=== PATIENT | female | born 1995 | race Caucasian/White ===

== ENCOUNTER → 2021-02-16 14:35 | Outpatient (CLI) | payer OTHER, SELFPAY ==
[2021-02-19 13:17] LABS: HPV Reflexed? NOT INDICATED
== END ==
PROVIDERS: Referring Provider Nurse Practitioner Women's Health; Visit Provider Nurse Practitioner Women's Health
DX: Z12.4 Encounter for screening for malignant neoplasm of cervix (principal)
CPT/HCPCS: 88175; G0145

== ENCOUNTER → 2022-11-02 | Outpatient (CLI) | payer OTHER, SELFPAY ==
--- NOTE | 2022-11-02 11:54 | RAD_ITS ---
INDICATION: infertility management EXAMINATION/TECHNIQUE: Routine hysterosalpingography was performed. Total Fluoroscopic Time: 9 seconds AND number of Fluoroscopic Images: 1 OR Radiation dosage index: 3.15 mGy COMPARISON: None. FINDINGS: The uterine cavity contour is unremarkable. There are no filling defects or abnormalities. Both fallopian tubes are patent with free peritoneal spillage bilaterally. RAD/Salpingogram IMPRESSION: Negative hysterosalpingogram. Electronically Signed: Henry Pyle MD at 12:59 EDT ,
--- NOTE | 2022-11-02 12:27 | PCM.OPRPT ---
Problems Associated Problem List Diagnoses (1) Infertility management: (2) Pelvic pain: (3) Dysmenorrhea: Report of Operation Date of Procedure: 11/02/22 Description of Surgical Findings:: Preop diagnosis: Infertility Postop diagnosis:Infertility , bilateral tubal patency Procedure: Hysterosalpingogram Surgeon:Ann Collier DO Implantable devices: None Complications: None Findings: Bilateral tubal patency and normal uterine cavity Operative details: Patient was taken to the x-ray room and was placed on the x-ray table and was in the dorsal lithotomy position. Speculum was placed in the vagina and the cervix prepped with Betadine and the HSG catheter was easily introduced into the uterus and speculum removed. Radiologist was brought in and while pushing radiopaque dye into the uterus via the HSG catheter the radiologist took multiple images and views and confirmed bilateral tubal patency seen. No gross uterine filling defects or abnormalities were seen. All instruments removed from the vagina and the uterus without complication. Patient tolerated the procedure well. Surgeon: Ann Collier therapeutic dietitian: None Multi Select Codes Urinary/Genital Urinary/Genital CPT Codes: 38013 HSG/SIS
== END | disposition home or self-care (01) ==
LOC: RAD 11:52
PROVIDERS: Referring Provider Obstetrics & Gynecology; Visit Provider Obstetrics & Gynecology
DX: Z31.9 Encounter for procreative management, unspecified (principal)
CPT/HCPCS: 58340; 74740; Q9967

== ENCOUNTER → 2023-08-10 | Outpatient (CLI) | payer MEDICAID, SELFPAY ==
--- OUTSIDE RECORDS SUMMARY | 2023-08-10 11:44 | XMS RPT_ITS | CCD ---
Author Name Unknown Address [address] [place] [address] Organization [facility] Care Team Providers Care Final Assembler Boat Name Role Phone COLÓNMEGHANA RAMIREZHEN Unavailable Unavailable VAN COLÓN Unavailable Unavailable IRA NICOLE Unavailable Unavailable Kristie DELI DEPARTMENT MANAGER.Cris BRYSON Primary Care Provider Kristie DELI DEPARTMENT MANAGER.Cris BRSYON Primary Care Provider Kristie DELI DEPARTMENT MANAGER.Cris BRYSON Primary Care Provider CRIS FLOWERS Primary Care Unavailable KRISTIE CRIS [place] Attending Unavailable KRISTIE CRIS [place] Attending Unavailable KRISTIE CRIS [place] Primary Care Unavailable KRISTIE CRIS [place] Attending Unavailable KRISTIE, CRIS L Primary Care Unavailable MARE JACOBSEN C.N.P. Attending Unavaila ble CRIS FLOWERS Attending Unavailable Unavailable Primary Care Provider UnavailBUFFY Israel Attending Unavailable CRIS FLOWERS Primary Care Unavailable BUFFY MATHEWS Attending Unavailable ROBER OLIVARES Attending Unavailable AVE ARAUJO Referring Unavailabl e Medications Current Medications Medication Drug Class(es) Dates Sig (Normalized) Sig (Original) enteric contrast (will be provided with radiology test) (2 sources) Start: 12-05-2022 End: 12-06-2022 enteric contrast (will be provided with radiology test) For CT ABD W IVCON order Administer, As Directed One Time Only, via Oral, Rectal, both Oral and Rectal, Enteric Tube, Stoma or Indwelling Catheter, Enteric Contrast as designated per enteric contrast guidelines 1 Each 0 12/05/2022 12/06/2022 Active Completed/Discontinued Medications Medication Drug Class(es) Dates Sig (Normalized) Sig (Original) [id number] 200 actuat albuterol 0.09 mg/actuat metered dose inhaler (7 sources) beta2-Adrenergic Agonist Start: 05-08-2020 End: 11-08-2021 take 2 puff(s) by inhalation every six hours as needed for wheezing albuterol HFA (PROVENTIL HFA, VENTOLIN HFA) 90 mcg/actuation inhaler Indications: Post-viral reactive airway disease Inhale 2 Puffs as instructed every 6 hours as needed for Wheezing/Shortness of Breath. 18 g 5 05/08/2020 11/08/2021 Discontinued (Other) Problems Active Problems Problem Classification Problem Date Documented Da te Episodic/Chronic Acute and chronic tonsillitis (1 source) Acute tonsillitis, unspecified; Translations: [Tonsillitis] Onset: 06-16-2023 Episodic Anxiety disorders (20 sources) Mixed anxiety and depressive disorder; Translations: [Anxiety disorder, unspecified] Onset: 01-13-2020 01-13-2020 Chronic Asthma (20 sources) Reactive airway disease; Translations: [Other asthma] Onset: 05-08-2020 05-08-2020 Chronic Endometriosis (2 sources) Endometriosis (clinical); Translations: [Endometriosis, unspecified] Onset: 12-26-2016 06-27-2023 Chronic Genitourinary symptoms and ill-defined conditions (1 source) Dysuria; Translations: [Dysuria] Episodic Menstrual disorders (1 source) Dysmenorrhea; Translations: [Dysmenorrhea, unspecified] Onset: 06-27-2023 06-27-2023 Chronic Mycoses (1 source) Candidiasis of vagina; Translations: [Vaginal yeast infection] Episodic Other connective tissue disease (1 source) Pain in right foot; Translations: [Pain in right foot] Episodic Other ear and sense organ disorders (1 source) Ear problem Onset: 07-16-2023 Episodic Other gastrointestinal disorders (1 source) Abdominal bloating; Translations: [Abdominal distension (gaseous)] Episodic Other non-traumatic joint disorders (1 source) Pain in unspecified joint; Translations: [Pain in joint, multiple sites] Onset: 07-10-2023 Episodic Other upper respiratory disease (1 source) Seasonal allergy; Translations: [Other seasonal allergic rhinitis] Chronic Otitis media and related conditions (3 sources) Dysfunction of right eustachian tube; Translations: [Unspecified Eustachian tube disorder, right ear] Onset: 06-16-2023 07-16-2023 Episodic Unclassified (1 source) Unknown / UNK(Unknown) Onset: 12-26-2016 Unclassified (20 sources) NEGATIVE MEDICAL HISTORY 06-27-2018 Unclassified (1 source) APPOINTMENT CANCELLED Past or Other Problems Problem Classification Problem Date Documented Da te Episodic/Chronic Abdominal pain (3 sources) Right lower quadrant pain; Translations: [Right lower quadrant pain] Onset: 07-04-2022 Episodic Other and unspecified benign neoplasm (20 sources) Benign neoplasm of skin of face; Translations: [Melanocytic nevi of other parts of face] Onset: 01-09-2020 01-09-2020 Episodic Other infections; including parasitic (20 sources) Personal history of other infectious and parasitic diseases; Translations: [History of 2019 novel coronavirus disease (COVID-19)] Onset: 05-08-2020 05-08-2020 Episodic Other lower respiratory disease (20 sources) Dyspnea on exertion; Translations: [Dyspnea, unspecified] Onset: 05-08-2020 07-24-2020 Episodic Results Test Name Value Interpretation Reference Range Facil ity Vital Signs Date Time Vital Sign Value Performing Clinician Faci lity 07-16-2023 13:30-0500 Body temperature 98.91 [degF] Rober Olivares APRN.CNP Work Phone: [facility] [place] 07-16-2023 13:30-0500 Body weight 62.6 kg Rober Olivares APRN.CNP Work Phone: [facility] [place] 07-16-2023 13:30-0500 Diastolic blood pressure 82 mm[Hg] Rober Olivares APRN.SLIPMAN Work Phone: [facility] [place] 07-16-2023 13:30-0500 Heart rate 67 /min Rober Olivares APRN.CNP Work Phone: [facility] [place] 07-16-2023 13:30-0500 Respiratory rate 16 /min Rober Olivares APRN.CNP Work Phone: [facility] [place] 07-16-2023 13:30-0500 SaO2% (BldA) [Mass fraction] 100 % Rober Olivares APRN.CNP Work Phone: [facility] [place] 07-16-2023 13:30-0500 Systolic blood pressure 123 mm[Hg] Rober Olivares DELI DEPARTMENT MANAGER.SLIPMAN Work Phone: [facility] [place] 12-05-2022 10:04-0400 Body height 162.6 cm Cris Flowers DELI DEPARTMENT MANAGER.SLIPMAN Work Phone: [facility] [place] 12-05-2022 10:04-0400 Body temperature 98.1 [degF] Cris Flowers DELI DEPARTMENT MANAGER.SLIPMAN Work Phone: [facility] [place] 12-05-2022 10:04-0400 Body weight 65.41 kg Cris Flowers DELI DEPARTMENT MANAGER.SLIPMAN Work Phone: [facility] [place] 12-05-2022 10:04-0400 Diastolic blood pressure 69 mm[Hg] Cris Flowers DELI DEPARTMENT MANAGER.SLIPMAN Work Phone: [facility] [place] 12-05-2022 10:04-0400 Heart rate 56 /min Cris Flowers DELI DEPARTMENT MANAGER.SLIPMAN Work Phone: [facility] [place] 12-05-2022 10:04-0400 SaO2% (BldA) [Mass fraction] 100 % Cris Flowers DELI DEPARTMENT MANAGER.SLIPMAN Work Phone: [facility] [place] 12-05-2022 10:04-0400 Systolic blood pressure 106 mm[Hg] Cris Flowers DELI DEPARTMENT MANAGER.SLIPMAN Work Phone: [facility] [place] 04-13-2022 15:45-0400 Body height 162.6 cm Cris Flowers DELI DEPARTMENT MANAGER.SLIPMAN Work Phone: [facility] [place] 04-13-2022 15:45-0400 Body temperature 97.59 [degF] Cris Flowers DELI DEPARTMENT MANAGER.SLIPMAN Work Phone: [facility] [place] 04-13-2022 15:45-0400 Body weight 65.5 kg Cris Flowers DELI DEPARTMENT MANAGER.SLIPMAN Work Phone: [facility] [place] 04-13-2022 15:45-0400 Diastolic blood pressure 67 mm[Hg] Cris Flowers DELI DEPARTMENT MANAGER.SLIPMAN Work Phone: [facility] [place] 04-13-2022 15:45-0400 Heart rate 72 /min Cris Kristie DELI DEPARTMENT MANAGER.SLIPMAN Work Phone: [facility] [place] 04-13-2022 15:45-0400 SaO2% (BldA) [Mass fraction] 99 % Cris Kristie DELI DEPARTMENT MANAGER.SLIPMAN Work Phone: [facility] [place] 04-13-2022 15:45-0400 Systolic blood pressure 106 mm[Hg] Cris Kristie DELI DEPARTMENT MANAGER.SLIPMAN Work Phone: [facility] [place] 01-17-2022 10:57-0400 Body height 162.6 cm Cris Kristie DELI DEPARTMENT MANAGER.SLIPMAN Work Phone: [facility] [place] 01-17-2022 10:57-0400 Body temperature 98.2 [degF] Cris Kristie DELI DEPARTMENT MANAGER.SLIPMAN Work Phone: [facility] [place] 01-17-2022 10:57-0400 Body weight 63.14 kg Crisdm Flowers DELI DEPARTMENT MANAGER.SLIPMAN Work Phone: [facility] [place] 01-17-2022 10:57-0400 Diastolic blood pressure 68 mm[Hg] Cris Kristie DELI DEPARTMENT MANAGER.SLIPMAN Work Phone: [facility] [place] 01-17-2022 10:57-0400 Heart rate 58 /min Cris Kristie DELI DEPARTMENT MANAGER.SLIPMAN Work Phone: [facility] [place] 01-17-2022 10:57-0400 SaO2% (BldA) [Mass fraction] 98 % Cris Kristie DELI DEPARTMENT MANAGER.SLIPMAN Work Phone: [facility] [place] 01-17-2022 10:57-0400 Systolic blood pressure 101 mm[Hg] Cris Kristie DELI DEPARTMENT MANAGER.SLIPMAN Work Phone: [facility] [place] 11-08-2021 08:58-0400 Body height 162.6 cm Crisdm Flowers DELI DEPARTMENT MANAGER.SLIPMAN Work Phone: [facility] [place] 11-08-2021 08:58-0400 Body temperature 98.49 [degF] Cris Kristie DELI DEPARTMENT MANAGER.SLIPMAN Work Phone: [facility] [place] 11-08-2021 08:58-0400 Body weight 62.6 kg Cris Flowers APRN.CNP Work Phone: [facility] [place] 11-08-2021 08:58-0400 Diastolic blood pressure 66 mm[Hg] Cris Flowers APRN.CNP Work Phone: [facility] [place] 11-08-2021 08:58-0400 Heart rate 61 /min Cris Flowers APRN.CNP Work Phone: [facility] [place] 11-08-2021 08:58-0400 SaO2% (BldA) [Mass fraction] 99 % Cris Flowers APRN.CNP Work Phone: [facility] [place] 11-08-2021 08:58-0400 Systolic blood pressure 103 mm[Hg] Cris Flowers APRN.CNP Work Phone: [facility] [place] Encounters Encounter Date Encounter Type Care Provider Facility Start: 07-17-2023 Emergency department patient visit BUFFY MATHEWS Facility:[id number] Start: 07-16-2023 End: 07-16-2023 ambulatory ROBER OLIVARES Facility:[id number] Start: 07-16-2023 End: 07-16-2023 Patient encounter procedure Rober Olivares APRN.CNP Work Phone: [facility] Procedures Date Procedure Procedure Detail Performing Clinician Start: 12-31-2022 Ct abdomen & pelvis w/contrast material Cris Flowers APRN.CNP Work Phone: Start: 07-18-2022 Us transvaginal Provide r Cchs Start: 04-13-2022 Urnls dip stick/tabl et rgnt auto w/o microscopy Cris Flowers APRN.CNP Work Phone: Start: 11-08-2021 CBC + DIFF Ubaldo Dee DO Work Phone: Start: 11-08-2021 Comprehensive metabo lic 2000 panel - Serum or Plasma Maikel Dee DO Work Phone: Start: 11-08-2021 LIPID PANEL BASIC Yayo Dee Work Phone: Plan of Treatment Date Care Activity Detail Author Start: 04-25-2028 Urine microalbumin profile [facility] [place] Start: 02-17-2023 Covid-19 Vaccine ( season) Covid-19 Vaccine ( season) [facility] [place] Start: 02-17-2023 Influenza vaccination [facility] Start: 02-17-2022 Influenza vaccination [facility] Start: 10-29-2021 End: 12-29-2021 CBC W Auto Differential panel - Blood CBC + DIFF Lab Routine Well adult exam Expected: 10/29/2021, Expires: 12/29/2021 [facility] Work Phone: Immunizations Immunization Date Immunization Notes Care Provider Magdiel santos 09-27-2020 COVID-19 vaccine, ag e 12+ yr (PFIZER-BIONTECH - PURPLE TOP) Cris Flowers APRN.SLIPMAN Work Phone: [facility] [place] 09-04-2020 COVID-19 vaccine, ag e 12+ yr (PFIZER-BIONTECH - PURPLE TOP) Cris Flowers APRN.SLIPMAN Work Phone: [facility] [place] 06-27-2018 influenza virus vacc ine, unspecified formulation [facility] 04-25-2018 tetanus toxoid, redu kiki diphtheria toxoid, and acellular pertussis vaccine, adsorbed Crisdm Flowers APRN.SLIPMAN Work Phone: [facility] Payers Date Payer Category Payer Medicaid [id number] 2023 Private Health Insurance [employer] [id number] 2023-Present [address] [address] [place] [address] Medicaid [id number] 2019 Unknown [id number] 2019 Unknown [id number] 2019 Unknown [id number] 2014 Unknown [id number] Unknown [id number] Unknown [id number] Social History Date Type Detail Facility Start: 06-27-2018 End: 06-16-2023 Tobacco smoking status NHIS Never smoked tobacco [facility] Start: 06-27-2018 End: 06-16-2023 Tobacco use and exposure Smokeless tobacco non-user [facility] Start: 02-26-2021 End: 07-16-2023 Alcohol intake Current drinker of alcohol (finding) [facility] Start: 11-26-2019 History SDOH Alcohol Comment rare [facility] Start: 1995 Sex Assigned At Female [facility] Start: 10-29-2021 End: 04-13-2022 Exposure to SARS-CoV-2 (event) Not sure [facility] Start: 07-11-2022 End: 12-05-2022 History of Social function [facility] Start: 07-11-2022 End: 12-05-2022 Tobacco use panel [facility] Adult Depression Screening Assessment 0 [facility] Start: 06-15-2021 Gender identity Identifies as female gender (finding) [facility] Clinical Notes 10-08-2021 to 07-17-2023 Patient Rober Harry APRN.CNP - 07/16/2023 1:44 PM ESTTelephone Encounter - Hortencia Dudley MA - 04/21/2023 7:24 AM EDTTelephone Encounter - Ryan Grant - 12/05/2022 1:32 PM EDT Note Date & Type Note Facility 07-17-2023 Note HNO ID: [id number] Author: KARLEE RILEY CT Service: ? Author Type: Clinical Graphics Edit Technician Type: Progress Notes Filed: 07/17/2023 21:17 Note Text: Radiology Service Progress Note DATE OF SERVICE: July 17, 2023 TIME: 9:16 PM PATIENT IDENTITY VERIFICATION COMPLETED USING TWO (2) STANDARD IDENTIFIERS: Name and Date of confirmed by patient verbally and Name and Date of confirmed by identification band. FALL SCREENING: Has the patient had 2 falls in the last year or 1 fall with injury or currently using an Ambulatory Assistive Device (Walker, Cane, Wheelchair, Crutches, etc.)? Emergency Room Patient: Screened in ED PATIENT GENDER DATA: Female. status: : No status: NO. PATIENT RELEVANT IMPLANT DATA REVIEWED: Not Applicable PATIENT PRESENTS WITH AN IMPLANTABLE OR ATTACHED PARKING PATROLLER: No ALLERGIES: Reviewed and unchanged CONTRAST ALLERGY: NO. EXAM: CT -CONTRAST INDUCED NEPHROPATHY RISK FACTORS: Not applicable CREATININE: Creatinine Date Value Ref Range Status 07/17/2023 0.88 0.58 - 0.96 mg/dL Final 07/10/2023 0.85 0.58 - 0.96 mg/dL Final 11/08/2021 0.70 0.50 - 0.90 mg/dL Final Estimated Glomerular Filtration Rate Date Value Ref Range Status 07/17/2023 91 >=60 mL/min/1.73m? Final Comment: Estimated Glomerular Filtration Rate (eGFR) is calculated using the 2020 CKD-EPI creatinine equation. This equation utilizes serum creatinine, sex, and age as parameters. The creatinine assay has traceable calibration to isotope dilution-mass spectrometry. Refer to KDIGO guidelines for clinical interpretation. In patients with unstable renal function, e.g. those with acute kidney injury, the eGFR may not accurately reflect actual GFR. eGFR- Date Value Ref Range Status 11/08/2021 > 60 ml/min/1.73m2 Final Comment: eGFR >= 60 Indicates normal kidney function. * eGFR IS AN ESTIMATE * (AFR ASHTYN = ) (non-AFR AM = NON-) MDRD calculation used in the eGFR should not be used to dose medications. For further limitations of the eGFR please refer to the Physician Website or the National Kidney Disease Education Program website (www.nkdep.nih.gov). P.O.C.T. RESULTS: POC done: Yes, See Lab Tab July 17, 2023 TREATMENT: N/A and No Hydration needed. PERIPHERAL IV DATA: Ambulatory: A peripheral IV was started in the Right with a Angio cath: 20 gauge. RADIOLOGY DEPARTMENT: CT; Exam(s) Completed: Brain , CTA Brain , and CTA Neck SIGNATURE: Anitajuan miguelstuart Hornerna, CT, CT PATIENT NAME: Manuel Maldonado DATE: July 17, 2023 TIME: 9:16 PM [facility] 07-17-2023 Note HNO ID: [id number] Author: RAMYA RAMIREZ RT(R) Service: Radiology Author Type: Technologist Type: Progress Notes Filed: 07/17/2023 20:20 Note Text: Radiology Service Progress Note DATE OF SERVICE: July 17, 2023 TIME: 8:19 PM PATIENT IDENTITY VERIFICATION COMPLETED USING TWO (2) STANDARD IDENTIFIERS: Name and Date of confirmed by patient verbally and Name and Date of confirmed by identification band. FALL SCREENING: Has the patient had 2 falls in the last year or 1 fall with injury or currently using an Ambulatory Assistive Device (Walker, Cane, Wheelchair, Crutches, etc.)? Emergency Room Patient: Screened in ED PATIENT GENDER DATA: Male PATIENT RELEVANT IMPLANT DATA REVIEWED: Not Applicable PATIENT PRESENTS WITH AN IMPLANTABLE OR ATTACHED PARKING PATROLLER: No ALLERGIES: Reviewed and unchanged CONTRAST ALLERGY: NO. EXAM: CT -CONTRAST INDUCED NEPHROPATHY RISK FACTORS: Patient age > 60 years CREATININE: Creatinine Date Value Ref Range Status 07/10/2023 0.85 0.58 - 0.96 mg/dL Final 11/08/2021 0.70 0.50 - 0.90 mg/dL Final 07/16/2020 0.65 0.50 - 0.90 mg/dL Final Estimated Glomerular Filtration Rate Date Value Ref Range Status 07/10/2023 95 >=60 mL/min/1.73m? Final Comment: Estimated Glomerular Filtration Rate (eGFR) is calculated using the 2020 CKD-EPI creatinine equation. This equation utilizes serum creatinine, sex, and age as parameters. The creatinine assay has traceable calibration to isotope dilution-mass spectrometry. Refer to KDIGO guidelines for clinical interpretation. In patients with unstable renal function, e.g. those with acute kidney injury, the eGFR may not accurately reflect actual GFR. eGFR- Date Value Ref Range Status 11/08/2021 > 60 ml/min/1.73m2 Final Comment: eGFR >= 60 Indicates normal kidney function. * eGFR IS AN ESTIMATE * (AFR ASHTYN = ) (non-AFR AM = NON-) MDRD calculation used in the eGFR should not be used to dose medications. For further limitations of the eGFR please refer to the Physician Website or the National Kidney Disease Education Program website (www.nkdep.nih.gov). P.O.C.T. RESULTS: POC done: Yes, See Lab Tab July 17, 2023 TREATMENT: N/A PERIPHERAL IV DATA: Ambulatory: A peripheral IV was started in the Left antecubital site with a Angio cath: 20 gauge. RADIOLOGY DEPARTMENT: CT; Exam(s) Completed: PE Study SIGNATURE: RT Leandro(R) PATIENT NAME: Manuel Maldonado DATE: July 17, 2023 TIME: 8:19 PM [facility] 07-16-2023 Note HNO ID: [id number] Author: ROBER OLIVARES APRN.SLIPMAN Service: ? Author Type: Nurse Practitioner Type: Progress Notes Filed: 07/16/2023 14:01 Note Text: July 16, 2023 HPI: Manuel Maldonado is a 28 year old female who presents today for Rt ear pain/pressure. Was seen about a month ago for an ear infection twice, has had steroid and abx,neither helped. Had appt with ENT and was told to give it time. Still having problems can't get in with ent until end of July and PCP in August. No fevers or difficulty swallowing PAST MEDICAL HISTORY Diagnosis Date COVID-19 10/10/2019 NEGATIVE MEDICAL HISTORY PAST SURGICAL HISTORY Procedure Laterality Date OTHER exploratory laparoscopy 2018 OTHER Excision of nose - mole FAMILY HISTORY Problem Relation Age of Onset Asthma Father Thyroid Brother Schizophrenia Brother Paranoid behavior Brother other (Bone Disease) Brother Social History Tobacco Use Smoking status: Never Smokeless tobacco: Never Vaping Use Vaping Use: Never used Substance Use Topics Alcohol use: Yes Comment: rare Drug use: No ALLERGIES No Known Allergies Immunization History Administered Date(s) Administered COVID-19 original vaccine, age 12+ yr, monovalent (PFIZER-BIONTRontal Applications - PURPLE TOP) 09/04/2020 09/27/2020 tetanus diphtheria pertussis (Tdap) vaccine, age 7+ yr (ADACEL, BOOSTRIX) 04/25/2018 tuberculin skin test (TST-PPD), purified protein derivative, intradermal 01/13/2020 Current Medications: buPROPion XL (WELLBUTRIN XL) 150 mg 24 hr tablet take 1 tablet by mouth every day escitalopram oxalate (LEXAPRO) 10 mg tablet take 1 tablet by mouth every day (Patient not taking: Reported on 06/16/2023) iv contrast (will be provided with radiology test) CT ABD/PEL -Inject, intravenously, once for 1 dose.No IV access, insert saline lock prior to the beginning of sedation, infusion, injection of imaging exam. Discontinue saline lock post exam. If Pt. has a central line or IVAD, may access for administration according to line specific nursing protocol. Once exam is complete flush line and de-access according to line specific nursing protocol in the CT contrast administration guidelines link. (Patient not taking: Reported on 06/16/2023) Review of Systems Constitutional: Negative for chills and fever. HENT: Positive for ear pain (Rt). Negative for congestion and sore throat. Eyes: Negative for redness. Respiratory: Negative for cough and shortness of breath. Cardiovascular: Negative for chest pain. Gastrointestinal: Negative for abdominal pain, diarrhea, nausea and vomiting. Genitourinary: Negative. Musculoskeletal: Negative for myalgias. Skin: Negative for rash. All other systems reviewed and are negative. Objective BP 123/82 Pulse 67 Temp (Src) 98.9 (Oral) Resp 16 Wt 138 lb (62.6kg) SpO2 100% LMP 06/18/2023 Physical Exam Constitutional: General: She is not in acute distress. Appearance: She is not ill-appearing or toxic-appearing. HENT: Head: Normocephalic and atraumatic. Right Ear: A middle ear effusion (clear fluid level) is present. No mastoid tenderness. Tympanic membrane is not injected or bulging. Ears: Comments: Pain is inferior auricular and there is a tender lymph node in this area that is 0.5cm. Mouth/Throat: Mouth: Mucous membranes are moist. Pharynx: Uvula midline. No oropharyngeal exudate, posterior oropharyngeal erythema or uvula swelling. Tonsils: No tonsillar abscesses. 1+ on the right. 1+ on the left. Eyes: Conjunctiva/sclera: Conjunctivae normal. Cardiovascular: Rate and Rhythm: Normal rate and regular rhythm. Pulmonary: Effort: Pulmonary effort is normal. Skin: General: Skin is warm and dry. Capillary Refill: Capillary refill takes less than 2 seconds. Neurological: Mental Status: She is alert and oriented to person, place, and time. Medical Decision Making: Problems: Low: Acute, uncomplicated illness or injury Data: Unique source(s) for external note(s) reviewed: 1 Risk: Low: Low risk from testing/treatment Medical Decision Making Level: 3 - Low ASSESSMENT/PLAN: 1. Eustachian tube dysfunction, right - ICD9: 381.81, ICD10: H69.91 Patient was evaluated twice in our clinic, has had antibiotics and then was prescribed steroids the second visit. Patient also saw ENT, who told her to give it a little while to improve. It has been about a month patient still has pain in the inferior auricular area. She has a small tender lymph node to the inferior auricular area that may need evaluation that is not available at this clinic. She is going to call ENT tomorrow and see if she can get in any sooner than end of July, or her PCP and see if she can get in for an evaluation before her initial new patient evaluation in August. She is advised to go to the emergency department for any worsening condition, difficulty swallowing, fevers, or other con (more content not included)... [facility] 07-16-2023 Instructions Rober Olivares APRN.ADELAIDE - 07/16/2023 1:50 PM EST Pt will follow up with PCP/ENT if not better in 2-3 days or go to emergency department if worsening condition Call offices to see if either can see you sooner documented in this encounter [facility] [place] 07-16-2023 History of Presen t illness Narrative July 16, 2023 HPI: Manuel Maldonado is a 28 year old female who presents today for Rt ear pain/pressure. Was seen about a month ago for an ear infection twice, has had steroid and abx,neither helped. Had appt with ENT and was told to give it time. Still having problems can't get in with ent until end of July and PCP in August. No fevers or difficulty swallowing PAST MEDICAL HISTORY Diagnosis Date COVID-19 10/10/2019 NEGATIVE MEDICAL HISTORY PAST SURGICAL HISTORY Procedure Laterality Date OTHER exploratory laparoscopy 2017 OTHER Excision of nose - mole FAMILY HISTORY Problem Relation Age of Onset Asthma Father Thyroid Brother Schizophrenia Brother Paranoid behavior Brother other (Bone Disease) Brother Social History Tobacco Use Smoking status: Never Smokeless tobacco: Never Vaping Use Vaping Use: Never used Substance Use Topics Alcohol use: Yes Comment: rare Drug use: No ALLERGIES No Known Allergies Immunization History Administered Date(s) Administered COVID- original vaccine, age 12+ yr, monovalent ([employer] - PURPLE TOP) 09/04/2020 09/27/2020 tetanus diphtheria pertussis (Tdap) vaccine, age 7+ yr ([employer]ACEL, BOOSTRIX) 04/25/2018 tuberculin skin test (TST-PPD), purified protein derivative, intradermal 01/13/2020 Current Medications: buPROPion XL (WELLBUTRIN XL) 150 mg 24 hr tablet take 1 tablet by mouth every day escitalopram oxalate (LEXAPRO) 10 mg tablet take 1 tablet by mouth every day (Patient not taking: Reported on 06/16/2023) iv contrast (will be provided with radiology test) CT ABD/PEL -Inject, intravenously, once for 1 dose.No IV access, insert saline lock prior to the beginning of sedation, infusion, injection of imaging exam. Discontinue saline lock post exam. If Pt. has a central line or IVAD, may access for administration according to line specific nursing protocol. Once exam is complete flush line and de-access according to line specific nursing protocol in the CT contrast administration guidelines link. (Patient not taking: Reported on 06/16/2023) Review of Systems Constitutional: Negative for chills and fever. HENT: Positive for ear pain (Rt). Negative for congestion and sore throat. Eyes: Negative for redness. Respiratory: Negative for cough and shortness of breath. Cardiovascular: Negative for chest pain. Gastrointestinal: Negative for abdominal pain, diarrhea, nausea and vomiting. Genitourinary: Negative. Musculoskeletal: Negative for myalgias. Skin: Negative for rash. All other systems reviewed and are negative. Objective BP 123/82 Pulse 67 Temp (Src) 98.9 (Oral) Resp 16 Wt 138 lb (62.6kg) SpO2 100% LMP 06/18/2023 Physical Exam Constitutional: General: She is not in acute distress. Appearance: She is not ill-appearing or toxic-appearing. HENT: Head: Normocephalic and atraumatic. Right Ear: A middle ear effusion (clear fluid level) is present. No mastoid tenderness. Tympanic membrane is not injected or bulging. Ears: Comments: Pain is inferior auricular and there is a tender lymph node in this area that is 0.5cm. Mouth/Throat: Mouth: Mucous membranes are moist. Pharynx: Uvula midline. No oropharyngeal exudate, posterior oropharyngeal erythema or uvula swelling. Tonsils: No tonsillar abscesses. 1+ on the right. 1+ on the left. Eyes: Conjunctiva/sclera: Conjunctivae normal. Cardiovascular: Rate and Rhythm: Normal rate and regular rhythm. Pulmonary: Effort: Pulmonary effort is normal. Skin: General: Skin is warm and dry. Capillary Refill: Capillary refill takes less than 2 seconds. Neurological: Mental Status: She is alert and oriented to person, place, and time. Medical Decision Making: Problems: Low: Acute, uncomplicated illness or injury Data: Unique source(s) for external note(s) reviewed: 1 Risk: Low: Low risk from testing/treatment Medical Decision Making Level: 3 - Low ASSESSMENT/PLAN: 1. Eustachian tube dysfunction, right - ICD9: 381.81, ICD10: H69.91 Patient was evaluated twice in our clinic, has had antibiotics and then was prescribed steroids the second visit. Patient also saw ENT, who told her to give it a little while to improve. It has been about a month patient still has pain in the inferior auricular area. She has a small tender lymph node to the inferior auricular area that may need evaluation that is not available at this clinic. She is going to call ENT tomorrow and see if she can get in any sooner than end of July, or her PCP and see if she can get in for an evaluation before her initial new patient evaluation in August. She is advised to go to the emergency department for any worsening condition, difficulty swallowing, fevers, or other concerns. Rober Olivares APRN.CNP The above reflects my independent exam and review of the patient's medical record. I saw and examined the patient myself personally. Parts of the HPI, ROS, exam, impression/plan, and testing results may have been copied from the current or previous clinical notes and remain pertinent to today's visit. Current changes have been made and documented today. Other parts or data may have been deleted if not relevant for today. Plan as outlined above. documented in this encounter [facility] [place] 06-22-2023 Note HNO ID: [id number] Author: BUFFY MATHEWS APRN.CNP Service: ? Author Type: Nurse Practitioner Type: Progress Notes Filed: 06/22/2023 12:27 Note Text: June 22, 2023 HPI: Manuel Maldonado is a 28 year old female who presents today for Ear Problem. She reports right ear pain persisting despite antibiotic treatment for right ear infection on 06/16. Reports sore throat has improved, but right ear pain is persistent. Denies fevers, chills. Reports increased pressure in the right ear. Denies any OTC medications. PAST MEDICAL HISTORY Diagnosis Date COVID-19 10/10/2019 NEGATIVE MEDICAL HISTORY PAST SURGICAL HISTORY Procedure Laterality Date OTHER exploratory laparoscopy 2017 OTHER Excision of nose - mole FAMILY HISTORY Problem Relation Age of Onset Asthma Father Thyroid Brother Schizophrenia Brother Paranoid behavior Brother other (Bone Disease) Brother Social History Tobacco Use Smoking status: Never Smokeless tobacco: Never Vaping Use Vaping Use: Never used Substance Use Topics Alcohol use: Yes Comment: rare Drug use: No ALLERGIES No Known Allergies Immunization History Administered Date(s) Administered original vaccine, age 12+ yr, monovalent ([employer] - PURPLE TOP) 09/04/2020 09/27/2020 tetanus diphtheria pertussis (Tdap) vaccine, age 7+ yr (ADACEL, BOOSTRIX) 04/25/2018 tuberculin skin test (TST-PPD), purified protein derivative, intradermal 01/13/2020 Current Medications: amoxicillin (AMOXIL) 875 mg tablet Take 1 tablet by mouth two times a day for 10 days. buPROPion XL (WELLBUTRIN XL) 150 mg 24 hr tablet take 1 tablet by mouth every day predniSONE (DELTASONE) 20 mg tablet Take 2 tablets by mouth once daily for 5 days. escitalopram oxalate (LEXAPRO) 10 mg tablet take 1 tablet by mouth every day (Patient not taking: Reported on 06/16/2023) iv contrast (will be provided with radiology test) CT ABD/PEL -Inject, intravenously, once for 1 dose.No IV access, insert saline lock prior to the beginning of sedation, infusion, injection of imaging exam. Discontinue saline lock post exam. If Pt. has a central line or IVAD, may access for administration according to line specific nursing protocol. Once exam is complete flush line and de-access according to line specific nursing protocol in the CT contrast administration guidelines link. (Patient not taking: Reported on 06/16/2023) Review of Systems Constitutional: Negative for chills, fever and malaise/fatigue. HENT: Positive for congestion and ear pain. Negative for ear discharge, sinus pain and sore throat. Respiratory: Negative for cough, sputum production, shortness of breath and wheezing. Cardiovascular: Negative for chest pain and palpitations. Musculoskeletal: Negative for myalgias. Skin: Negative for rash. Neurological: Negative for headaches. Objective BP 105/71 Pulse 67 Temp (Src) 98.5 (Oral) Resp 18 Wt 137 lb (62.1kg) SpO2 100% LMP 06/18/2023 Physical Exam Constitutional: General: She is not in acute distress. Appearance: She is not toxic-appearing. HENT: Head: Atraumatic. Right Ear: Ear canal and external ear normal. Decreased hearing (muffled) noted. No swelling or tenderness. A middle ear effusion is present. No mastoid tenderness. Tympanic membrane is not erythematous, retracted or bulging. Left Ear: Tympanic membrane, ear canal and external ear normal. Ears: Comments: Fluid noted behind right eardrum Nose: Nose normal. Mouth/Throat: Mouth: Mucous membranes are moist. Eyes: Conjunctiva/sclera: Conjunctivae normal. Cardiovascular: Rate and Rhythm: Normal rate and regular rhythm. Pulmonary: Effort: Pulmonary effort is normal. No respiratory distress. Breath sounds: Normal breath sounds. No wheezing or rhonchi. Musculoskeletal: Cervical back: Neck supple. Lymphadenopathy: Cervical: No cervical adenopathy. Skin: General: Skin is warm. Neurological: Mental Status: She is alert and oriented to person, place, and time. Psychiatric: Behavior: Behavior normal. ASSESSMENT/PLAN: 1. Eustachian tube dysfunction, right - ICD9: 381.81, ICD10: H69.91 - Finish Amoxicillin prescription as previously prescribed. Begin prednisone burst as prescribed. Begin taking daily antihistamine and use flonase daily. Keep scheduled ENT appointment. - PREDNISONE 20 MG TABLET Buffy Mathews APRN.SLIPMAN The above reflects my independent exam and review of the patient's medical record. I saw and examined the patient myself personally. Parts of the HPI, ROS, exam, impression/plan, and testing results may have been copied from the current or previous clinical notes and remain pertinent to today's visit. Current changes have been made and documented today. Other parts or data may have been deleted if not relevant for today. Plan as outlined above. [facility] 06-16-2023 Note HNO ID: [id number] Author: Buffy Mathews APRN.SLIPMAN Service: ? Author Type: Nurse Practitioner Type: Progress Notes Filed: 06/16/2023 5:09 PM Note Text: June 16, 2023 HPI: Manuel Maldonado is a 28 year old female who presents today for Ear Pain. She reports right ear pain worsening over the past 2 weeks. Reports tonsillitis diagnosed as viral 2 weeks ago which is not improving. Reports development of fevers. Denies congestion or coughing. PAST MEDICAL HISTORY Diagnosis Date COVID-19 10/10/2019 NEGATIVE MEDICAL HISTORY PAST SURGICAL HISTORY Procedure Laterality Date OTHER exploratory laparoscopy 2018 OTHER Excision of nose - mole FAMILY HISTORY Problem Relation Age of Onset Asthma Father Thyroid Brother Schizophrenia Brother Paranoid behavior Brother other (Bone Disease) Brother Social History Tobacco Use Smoking status: Never Smokeless tobacco: Never Vaping Use Vaping Use: Never used Substance Use Topics Alcohol use: Yes Comment: rare Drug use: No ALLERGIES No Known Allergies Immunization History Administered Date(s) Administered COVID-19 original vaccine, age 12+ yr, monovalent ([employer] - PURPLE TOP) 09/04/2020 09/27/2020 tetanus diphtheria pertussis (Tdap) vaccine, age 7+ yr (ADACEL, BOOSTRIX) 04/25/2018 tuberculin skin test (TST-PPD), purified protein derivative, intradermal 01/13/2020 Current Medications: buPROPion XL (WELLBUTRIN XL) 150 mg 24 hr tablet take 1 tablet by mouth every day escitalopram oxalate (LEXAPRO) 10 mg tablet take 1 tablet by mouth every day (Patient not taking: Reported on 06/16/2023) iv contrast (will be provided with radiology test) CT ABD/PEL -Inject, intravenously, once for 1 dose.No IV access, insert saline lock prior to the beginning of sedation, infusion, injection of imaging exam. Discontinue saline lock post exam. If Pt. has a central line or IVAD, may access for administration according to line specific nursing protocol. Once exam is complete flush line and de-access according to line specific nursing protocol in the CT contrast administration guidelines link. (Patient not taking: Reported on 06/16/2023) Review of Systems Constitutional: Positive for fever. HENT: Positive for ear pain and sore throat. Negative for congestion. Respiratory: Negative for cough. Gastrointestinal: Negative for abdominal pain, constipation, diarrhea, nausea and vomiting. Objective BP 115/73 Pulse 72 Temp (Src) 98.6 (Oral) Resp 16 Wt 139 lb (63.1kg) SpO2 100% LMP 11/20/2022 Physical Exam Constitutional: General: She is not in acute distress. Appearance: She is not toxic-appearing. HENT: Head: Atraumatic. Right Ear: Ear canal and external ear normal. A middle ear effusion is present. Tympanic membrane is erythematous. Left Ear: Tympanic membrane, ear canal and external ear normal. Nose: Nose normal. Mouth/Throat: Mouth: Mucous membranes are moist. Pharynx: Uvula midline. Pharyngeal swelling and posterior oropharyngeal erythema present. No oropharyngeal exudate or uvula swelling. Tonsils: Tonsillar exudate present. No tonsillar abscesses. 2+ on the right. 2+ on the left. Eyes: Conjunctiva/sclera: Conjunctivae normal. Cardiovascular: Rate and Rhythm: Normal rate. Pulmonary: Effort: Pulmonary effort is normal. Musculoskeletal: Cervical back: Neck supple. Lymphadenopathy: Cervical: No cervical adenopathy. Skin: General: Skin is warm. Neurological: Mental Status: She is alert and oriented to person, place, and time. Psychiatric: Behavior: Behavior normal. ASSESSMENT/PLAN: 1. Acute otitis media, right - ICD9: 382.9, ICD10: H66.91 (primary diagnosis) - Will begin treatment with Amoxicillin for 10 days - Supportive care with plenty of fluids, rest, and analgesia prn. - Follow up in 3-5 days if symptoms persist or worsen. - AMOXICILLIN 875 MG TABLET 2. Tonsillitis - ICD9: 463, ICD10: J03.90 Your rapid strep was negative Gargle with warm salt water, I recommend Tylenol or Ibuprofen for sore throat if needed. I recommend warm liquids and soft foods until symptoms resolve. Follow-up for recheck if your symptoms worsen or do not improve in 5-7 days. If you are having any trouble swallowing or breathing, seek immediate care in the ER for further evaluation. - RAPID STREP TEST B/O Buffy Mathews APRN.SLIPMAN The above reflects my independent exam and review of the patient's medical record. I saw and examined the patient myself personally. Parts of the HPI, ROS, exam, impression/plan, and testing results may have been copied from the current or previous clinical notes and remain pertinent to today's visit. Current changes have been made and documented today. Other parts or data may have been deleted if not relevant for today. Plan as outlined above. [facility] 04-21-2023 Miscellaneous Notes Formattin g of this note is different from the original. Pharmacy faxes requesting refill: Requested Prescriptions Pending Prescriptions Disp Refills escitalopram oxalate (LEXAPRO) 10 mg tablet [Pharmacy Med Name: ESCITALOPRAM 10 MG TABLET] 90 tablet Sig: take 1 tablet by mouth every day Date of last visit:12/05/22 Phone #: [phone] (home) [phone] (work) [phone] (cell) The patients preferred pharmacy has been captured for this encounter? yes documented in this encounter [facility] [place] 03-21-2023 Miscellaneous Notes Formattin g of this note is different from the original. Pharmacy faxes requesting refill: Requested Prescriptions Pending Prescriptions Disp Refills buPROPion XL (WELLBUTRIN XL) 150 mg 24 hr tablet [Pharmacy Med Name: BUPROPION HCL XL 150 MG TABLET] 30 tablet 2 Sig: take 1 tablet by mouth every day Date of last visit:12/05/2022 Phone #: [phone] (home) [phone] (work) [phone] (cell) The patients preferred pharmacy has been captured for this encounter? yes documented in this encounter [facility] [place] 02-23-2023 Miscellaneous Notes Addended by: CRIS FLOWERS on: 02/23/2023 12:27 PM Modules accepted: Orders documented in this encounter [facility] [place] 01-04-2023 Miscellaneous Notes Formattin g of this note might be different from the original. I left message for patient to return call. Office phone number was provided. Rubina Davis MA Can you update Manuel that her CT of her abdomen and pelvis is normal. Thanks Cris Flowers APRN.SLIPMAN documented in this encounter [facility] [place] 12-05-2022 Miscellaneous Notes Formattin g of this note might be different from the original. Auth request started with Day with pending case # [id number] Ryan Grant Note signed Cris, I tried starting the request and they are requesting the office note. Please advise when this is completed and I will send the request Ryan Grant Cris ordered a CT Abdomen W IVCON oral and IV contrast. Diagnoses of Right lower quadrant abdominal pain [R10.31] Needing prior auth with [employer]. Rubina Davis MA documented in this encounter [facility] [place] 12-05-2022 Note HNO ID: [id number] Author: Cris Flowers APRN.SLIPMAN Service: ? Author Type: Nurse Practitioner Type: Progress Notes Filed: 12/05/2022 11:20 AM Note Text: Manuel Maldonado is a 27 year old female here today acutely because of having: Patient presents with: Edema: States bloating with the pain for about 3 weeks. Abdominal Pain: States lower right abdominal pain. States has noticed pain for awhile off and on. She reports bloating for about 3 weeks and intermittent abdominal pain in right lower quadrant for months. The pain will last days and is like a dull ache. She reports the pain has been more constant this pas week and any activity she does makes it worse. She feels bloated and full all the time. The abdominal pain has been going on for about 3 months and it is getting worse. She reports normal bowel movements. No fever or chills or intermittent fevers. No problems with eating. She is not nauseated. No reflux or heart burn. She also reports she weaned herself off the lexapro and would like to restart it. Review of Systems Constitutional: Positive for appetite change. Negative for chills, diaphoresis, fatigue and fever. Respiratory: Negative for cough and shortness of breath. Gastrointestinal: Positive for abdominal distention and abdominal pain. Negative for blood in stool, constipation, diarrhea, nausea and vomiting. Genitourinary: Negative for decreased urine volume, difficulty urinating, dysuria, flank pain, pelvic pain and urgency. Skin: Negative for rash. ACTIVE PROBLEM LIST Negative Medical History Nevus of Nose Anxiety and Depression Watson (Dyspnea On Exertion) Post-Viral Reactive Airway Disease History of 2019 Novel Coronavirus Disease (Covid-19) PAST SURGICAL HISTORY Procedure Laterality Date OTHER exploratory laparoscopy 2018 OTHER Excision of nose - mole Social History Tobacco Use Smoking status: Never Smokeless tobacco: Never Vaping Use Vaping Use: Never used Substance Use Topics Alcohol use: Yes Comment: rare Drug use: No FAMILY HISTORY Problem Relation Age of Onset Asthma Father Thyroid Brother Schizophrenia Brother Paranoid behavior Brother other (Bone Disease) Brother ALLERGIES No Known Allergies BP 106/69 (BP Site: Left Arm, BP Position: Sitting) Pulse (!) 56 Temp 36.7 ?C (98.1 ?F) (Oral) Ht 162.6 cm (5' 4.02 ) Wt 65.4 kg (144 lb 3.2 oz) LMP 11/20/2022 (Exact Date) SpO2 100% BMI 24.74 kg/m? BMI 24.74 kg/(m2) Physical Exam Constitutional: General: She is not in acute distress. Appearance: Normal appearance. Cardiovascular: Rate and Rhythm: Normal rate and regular rhythm. Heart sounds: Normal heart sounds. No murmur heard. Pulmonary: Effort: Pulmonary effort is normal. Breath sounds: Normal breath sounds. Abdominal: General: Abdomen is flat. Bowel sounds are increased. There is no distension. Palpations: Abdomen is soft. There is no hepatomegaly, splenomegaly or mass. Tenderness: There is abdominal tenderness in the right lower quadrant. There is rebound. There is no right CVA tenderness or left CVA tenderness. Musculoskeletal: Cervical back: Neck supple. No tenderness. Lymphadenopathy: Cervical: No cervical adenopathy. Skin: General: Skin is warm and dry. Neurological: Mental Status: She is alert. Portions of this note have been entered by ancillary staff. I have reviewed and when necessary edited, so that they are an adequate record of my encounter with this patient. ASSESSMENT/PLAN: 1. Right lower quadrant abdominal pain - ICD9: 789.03, ICD10: R10.31 (primary diagnosis) - will get further work up to rule out mass, infectious or inflammatory causes of pain. If you develop any severe abdominal pain go to ER for evaluation. - CT ABDOMEN W IVCON 2. Bloating - ICD9: 787.3, ICD10: R14.0 See above note 3. Anxiety and depression - ICD9: 300.00, 311, ICD10: F41.9, F32.A Restart lexapro at 5mg daily. Cris Flowers APRN.CNP [facility] 12-05-2022 Instructions Cris Flowers APRN.ADELAIDE - 12/05/2022 10:50 AM EDT If you develop any severe abdominal pain please go to ER for evaluation. documented in this encounter [facility] [place] 12-05-2022 History of Presen t illness Narrative Manuel Maldonado is a 27 year old female here today acutely because of having: Patient presents with: Edema: States bloating with the pain for about 3 weeks. Abdominal Pain: States lower right abdominal pain. States has noticed pain for awhile off and on. She reports bloating for about 3 weeks and intermittent abdominal pain in right lower quadrant for months. The pain will last days and is like a dull ache. She reports the pain has been more constant this pas week and any activity she does makes it worse. She feels bloated and full all the time. The abdominal pain has been going on for about 3 months and it is getting worse. She reports normal bowel movements. No fever or chills or intermittent fevers. No problems with eating. She is not nauseated. No reflux or heart burn. She also reports she weaned herself off the lexapro and would like to restart it. Review of Systems Constitutional: Positive for appetite change. Negative for chills, diaphoresis, fatigue and fever. Respiratory: Negative for cough and shortness of breath. Gastrointestinal: Positive for abdominal distention and abdominal pain. Negative for blood in stool, constipation, diarrhea, nausea and vomiting. Genitourinary: Negative for decreased urine volume, difficulty urinating, dysuria, flank pain, pelvic pain and urgency. Skin: Negative for rash. ACTIVE PROBLEM LIST Negative Medical History Nevus of Nose Anxiety and Depression Watson (Dyspnea On Exertion) Post-Viral Reactive Airway Disease History of 2019 Novel Coronavirus Disease (Covid-19) PAST SURGICAL HISTORY Procedure Laterality Date OTHER exploratory laparoscopy 2018 OTHER Excision of nose - mole Social History Tobacco Use Smoking status: Never Smokeless tobacco: Never Vaping Use Vaping Use: Never used Substance Use Topics Alcohol use: Yes Comment: rare Drug use: No FAMILY HISTORY Problem Relation Age of Onset Asthma Father Thyroid Brother Schizophrenia Brother Paranoid behavior Brother other (Bone Disease) Brother ALLERGIES No Known Allergies BP 106/69 (BP Site: Left Arm, BP Position: Sitting) Pulse (!) 56 Temp 36.7 C (98.1 F) (Oral) Ht 162.6 cm (5' 4.02 ) Wt 65.4 kg (144 lb 3.2 oz) LMP 11/20/2022 (Exact Date) SpO2 100% BMI 24.74 kg/m BMI 24.74 kg/(m^2) Physical Exam Constitutional: General: She is not in acute distress. Appearance: Normal appearance. Cardiovascular: Rate and Rhythm: Normal rate and regular rhythm. Heart sounds: Normal heart sounds. No murmur heard. Pulmonary: Effort: Pulmonary effort is normal. Breath sounds: Normal breath sounds. Abdominal: General: Abdomen is flat. Bowel sounds are increased. There is no distension. Palpations: Abdomen is soft. There is no hepatomegaly, splenomegaly or mass. Tenderness: There is abdominal tenderness in the right lower quadrant. There is rebound. There is no right CVA tenderness or left CVA tenderness. Musculoskeletal: Cervical back: Neck supple. No tenderness. Lymphadenopathy: Cervical: No cervical adenopathy. Skin: General: Skin is warm and dry. Neurological: Mental Status: She is alert. Portions of this note have been entered by ancillary staff. I have reviewed and when necessary edited, so that they are an adequate record of my encounter with this patient. ASSESSMENT/PLAN: 1. Right lower quadrant abdominal pain - ICD9: 789.03, ICD10: R10.31 (primary diagnosis) - will get further work up to rule out mass, infectious or inflammatory causes of pain. If you develop any severe abdominal pain go to ER for evaluation. - CT ABDOMEN W IVCON 2. Bloating - ICD9: 787.3, ICD10: R14.0 See above note 3. Anxiety and depression - ICD9: 300.00, 311, ICD10: F41.9, F32.A Restart lexapro at 5mg daily. Cris Flowers APRN.ADELAIDE documented in this encounter [facility] [place] 04-15-2022 Miscellaneous Notes Formattin g of this note might be different from the original. Called patient to collect payment of $30 from [employer] 04/13. I left message for patient to return call. Office phone number was provided. Rubina Davis MA documented in this encounter [facility] [place] 04-13-2022 Note HNO ID: [id number] Author: Cris Flowers APRN.SLIPMAN Service: ? Author Type: Nurse Practitioner Type: Progress Notes Filed: 04/25/2022 10:24 AM Note Text: Manuel Maldnoado is a 27 year old female here today acutely because of having: Patient presents with: Vaginal Problem: States itch and burning. States itch is constants in vaginal area. States some burning while urinating. Has noticed symptoms for about 2 days. Started about two days ago, burning, irritation, and itching in the vaginal area. No discharge. No recent antibiotics. Has not used any topical for it at this time. Review of Systems See HPI ACTIVE PROBLEM LIST Negative Medical History Nevus of Nose Anxiety and Depression Watson (Dyspnea On Exertion) Post-Viral Reactive Airway Disease History of 2019 Novel Coronavirus Disease (Covid-19) PAST SURGICAL HISTORY Procedure Laterality Date OTHER exploratory laparoscopy 2018 OTHER Excision of nose - mole Social History Tobacco Use Smoking status: Never Smokeless tobacco: Never Vaping Use Vaping Use: Never used Substance Use Topics Alcohol use: Yes Comment: rare Drug use: No FAMILY HISTORY Problem Relation Age of Onset Asthma Father Thyroid Brother Schizophrenia Brother Paranoid behavior Brother other (Bone Disease) Brother ALLERGIES No Known Allergies BP 106/67 (BP Site: Left Arm, BP Position: Sitting) Pulse 72 Temp 36.4 ?C (97.6 ?F) (Oral) Ht 162.6 cm (5' 4.02 ) Wt 65.5 kg (144 lb 6.4 oz) LMP 03/27/2022 (Exact Date) SpO2 99% BMI 24.77 kg/m? BMI 24.77 kg/(m2) Physical Exam Constitutional: Appearance: Normal appearance. Pulmonary: Effort: Pulmonary effort is normal. Abdominal: General: Bowel sounds are normal. Palpations: Abdomen is soft. Tenderness: There is no abdominal tenderness. Skin: General: Skin is warm and dry. Neurological: Mental Status: She is alert. Portions of this note have been entered by ancillary staff. I have reviewed and when necessary edited, so that they are an adequate record of my encounter with this patient. ASSESSMENT/PLAN: 1. Vaginal yeast infection - ICD9: 112.1, ICD10: B37.31 (primary diagnosis) Treat with diflucan, see orders. Follow up if doesn't resolve. 2. Dysuria - ICD9: 788.1, ICD10: R30.0 acute Ua negative, likely due to vaginal and urethral irritation from yeast - UA DIP B/O Cris Flowers APRN.ADELAIDE [facility] 04-13-2022 Instructions Cris Flowers APRN.CNP - 04/13/2022 4:24 PM EDT Let me know if doesn't improve or resolve. documented in this encounter [facility] [place] 04-13-2022 History of Presen t illness Narrative Manuel Maldonado is a 27 year old female here today acutely because of having: Patient presents with: Vaginal Problem: States itch and burning. States itch is constants in vaginal area. States some burning while urinating. Has noticed symptoms for about 2 days. Started about two days ago, burning, irritation, and itching in the vaginal area. No discharge. No recent antibiotics. Has not used any topical for it at this time. Review of Systems See HPI ACTIVE PROBLEM LIST Negative Medical History Nevus of Nose Anxiety and Depression Watson (Dyspnea On Exertion) Post-Viral Reactive Airway Disease History of 2019 Novel Coronavirus Disease (Covid-19) PAST SURGICAL HISTORY Procedure Laterality Date OTHER exploratory laparoscopy 2018 OTHER Excision of nose - mole Social History Tobacco Use Smoking status: Never Smokeless tobacco: Never Vaping Use Vaping Use: Never used Substance Use Topics Alcohol use: Yes Comment: rare Drug use: No FAMILY HISTORY Problem Relation Age of Onset Asthma Father Thyroid Brother Schizophrenia Brother Paranoid behavior Brother other (Bone Disease) Brother ALLERGIES No Known Allergies BP 106/67 (BP Site: Left Arm, BP Position: Sitting) Pulse 72 Temp 36.4 C (97.6 F) (Oral) Ht 162.6 cm (5' 4.02 ) Wt 65.5 kg (144 lb 6.4 oz) LMP 03/27/2022 (Exact Date) SpO2 99% BMI 24.77 kg/m BMI 24.77 kg/(m^2) Physical Exam Constitutional: Appearance: Normal appearance. Pulmonary: Effort: Pulmonary effort is normal. Abdominal: General: Bowel sounds are normal. Palpations: Abdomen is soft. Tenderness: There is no abdominal tenderness. Skin: General: Skin is warm and dry. Neurological: Mental Status: She is alert. Portions of this note have been entered by ancillary staff. I have reviewed and when necessary edited, so that they are an adequate record of my encounter with this patient. ASSESSMENT/PLAN: 1. Vaginal yeast infection - ICD9: 112.1, ICD10: B37.31 (primary diagnosis) Treat with diflucan, see orders. Follow up if doesn't resolve. 2. Dysuria - ICD9: 788.1, ICD10: R30.0 acute Ua negative, likely due to vaginal and urethral irritation from yeast - UA DIP B/O Cris Flowers APRN.SLIPMAN documented in this encounter [facility] [place] 01-17-2022 Note HNO ID: [id number] Author: Cris Flowers APRN.SLIPMAN Service: ? Author Type: Nurse Practitioner Type: Progress Notes Filed: 01/17/2022 4:39 PM Note Text: Manuel Maldonado is a 26 year old female here today acutely because of having: Patient presents with: Ankle Pain: States right ankle pain. States she runs. States pain has been present for a couple weeks. she reports no injury. She has pain in her heel if she moves her right big toe. She denies constant heel pain but more intermittent. She feels some tightness through the arch of her foot. She has some pain with walking. She noticed it started about two weeks ago. No swelling or redness. Pain is sharp at times and varies in severity. Activity makes it worse. She has tried some ice, no nsaids. She is running more regularly now. She does primarily run on roads as well. No recent change in shoes. Review of Systems All other systems reviewed and are negative. ACTIVE PROBLEM LIST Negative Medical History Nevus of Nose Anxiety and Depression Watson (Dyspnea On Exertion) Post-Viral Reactive Airway Disease History of 2019 Novel Coronavirus Disease (Covid-19) PAST SURGICAL HISTORY Procedure Laterality Date - OTHER exploratory laparoscopy 2018 - OTHER Excision of nose - mole Social History Tobacco Use - Smoking status: Never Smoker - Smokeless tobacco: Never Used Vaping Use - Vaping Use: Never used Substance Use Topics - Alcohol use: Yes Comment: rare - Drug use: No FAMILY HISTORY Problem Relation Age of Onset - Asthma Father - Thyroid Brother - Schizophrenia Brother - Paranoid behavior Brother - other (Bone Disease) Brother ALLERGIES No Known Allergies BP 101/68 (BP Site: Left Arm, BP Position: Sitting) Pulse (!) 58 Temp 36.8 ?C (98.2 ?F) (Oral) Ht 162.6 cm (5' 4.02 ) Wt 63.1 kg (139 lb 3.2 oz) LMP 01/06/2022 (Exact Date) SpO2 98% BMI 23.88 kg/m? BMI 23.88 kg/(m2) Physical Exam Constitutional: Appearance: Normal appearance. She is normal weight. Pulmonary: Effort: Pulmonary effort is normal. Musculoskeletal: General: No swelling, tenderness or deformity. Normal range of motion. Comments: Right great toe normal, no joint swelling or redness. No joint tenderness. Deep palpation performed on ball of foot, arch and heel, no pain or tenderness found. Normal flexion and extension of foot and toes. No metatarsal tenderness. Skin: General: Skin is warm and dry. Neurological: Mental Status: She is alert. Portions of this note have been entered by ancillary staff. I have reviewed and when necessary edited, so that they are an adequate record of my encounter with this patient. ASSESSMENT/PLAN: 1. Foot pain, right - ICD9: 729.5, ICD10: M79.671 Suspect muscle or tendon strain, exercises and stretches given. Suggest foot/ankle mobility strengthening exercises to compliment running. Roll foot before and after runs. May need shoes with thicker soles for more cushion on roads. Run on mid to forefoot, avoid heel striking, this may take time for your calf and achilles to strengthen, again strengthening exercises discussed. If worsens or fails to improve with interventions follow up Cris Flowers APRN.CNP [facility] 01-17-2022 Instructions Cris Flowers APRN.ADELAIDE - 01/17/2022 11:22 AM EDT Suggest rolling foot on ice bottle to help reduce inflammation. Also suggest nsaid such as ibuprofen or aleve. If doesn't improve let me know. documented in this encounter [facility] [place] 01-17-2022 History of Presen t illness Narrative Manuel Maldonado is a 26 year old female here today acutely because of having: Patient presents with: Ankle Pain: States right ankle pain. States she runs. States pain has been present for a couple weeks. she reports no injury. She has pain in her heel if she moves her right big toe. She denies constant heel pain but more intermittent. She feels some tightness through the arch of her foot. She has some pain with walking. She noticed it started about two weeks ago. No swelling or redness. Pain is sharp at times and varies in severity. Activity makes it worse. She has tried some ice, no nsaids. She is running more regularly now. She does primarily run on roads as well. No recent change in shoes. Review of Systems All other systems reviewed and are negative. ACTIVE PROBLEM LIST Negative Medical History Nevus of Nose Anxiety and Depression Watson (Dyspnea On Exertion) Post-Viral Reactive Airway Disease History of 2019 Novel Coronavirus Disease (Covid-19) PAST SURGICAL HISTORY Procedure Laterality Date OTHER exploratory laparoscopy 2018 OTHER Excision of nose - mole Social History Tobacco Use Smoking status: Never Smoker Smokeless tobacco: Never Used Vaping Use Vaping Use: Never used Substance Use Topics Alcohol use: Yes Comment: rare Drug use: No FAMILY HISTORY Problem Relation Age of Onset Asthma Father Thyroid Brother Schizophrenia Brother Paranoid behavior Brother other (Bone Disease) Brother ALLERGIES No Known Allergies BP 101/68 (BP Site: Left Arm, BP Position: Sitting) Pulse (!) 58 Temp 36.8 C (98.2 F) (Oral) Ht 162.6 cm (5' 4.02 ) Wt 63.1 kg (139 lb 3.2 oz) LMP 01/06/2022 (Exact Date) SpO2 98% BMI 23.88 kg/m BMI 23.88 kg/(m^2) Physical Exam Constitutional: Appearance: Normal appearance. She is normal weight. Pulmonary: Effort: Pulmonary effort is normal. Musculoskeletal: General: No swelling, tenderness or deformity. Normal range of motion. Comments: Right great toe normal, no joint swelling or redness. No joint tenderness. Deep palpation performed on ball of foot, arch and heel, no pain or tenderness found. Normal flexion and extension of foot and toes. No metatarsal tenderness. Skin: General: Skin is warm and dry. Neurological: Mental Status: She is alert. Portions of this note have been entered by ancillary staff. I have reviewed and when necessary edited, so that they are an adequate record of my encounter with this patient. ASSESSMENT/PLAN: 1. Foot pain, right - ICD9: 729.5, ICD10: M79.671 Suspect muscle or tendon strain, exercises and stretches given. Suggest foot/ankle mobility strengthening exercises to compliment running. Roll foot before and after runs. May need shoes with thicker soles for more cushion on roads. Run on mid to forefoot, avoid heel striking, this may take time for your calf and achilles to strengthen, again strengthening exercises discussed. If worsens or fails to improve with interventions follow up Cris Flowers APRN.ADELAIDE documented in this encounter [facility] [place] 11-08-2021 Miscellaneous Notes Send 90 day supply with refills. Pharmacy faxes requesting refill: Pending Prescriptions Disp Refills ESCITALOPRAM 10 MG TABLET 30 tablet 1 Sig: TAKE 1 TABLET BY MOUTH EVERY DAY RONEY: Yes Date of last visit: 06/15/2021 Phone #: [phone] (home) [phone] (work) [phone] (cell) The patients preferred pharmacy has been captured for this encounter? yes documented in this encounter [facility] [place] 11-08-2021 Instructions Cris Flowers APRN.CNP - 11/08/2021 9:47 AM EDT Discussed healthy diet and lifestyle. Regular exercise encouraged. Consume at least five servings daily of fresh fruits and vegetables. Consume foods high in fiber, include whole grains, beans, nuts/seeds. Limit meat and dairy. Incorporate fish such as salmon in diet. Avoid processed foods, limit or avoid fast food, avoid refined carbs. Try to keep added sugar to 10grams or less daily. documented in this encounter [facility] [place] 11-08-2021 History of Presen t illness Narrative Manuel Maldonado is a 26 year old female here today for a check up on her medical problems. Concern(s) today include: Patient presents with: Wellness she is doing well. She is eating a healthy diet. She does exercise as well. She is doing well and has no concerns. Labs done and reviewed. She follows with [facility] for her pap. She does take lexapro for her anxiety and depression and feels it is well managed. Her medications were reviewed today and her list is now up to date. She is compliant on taking her medications :Yes She is tolerating her medication(s) without side effects: Yes She is following an appropriate diet for her medical problems: Yes She is getting some exercise in? Yes ACTIVE PROBLEM LIST Negative Medical History Nevus of Nose Anxiety and Depression Watson (Dyspnea On Exertion) Post-Viral Reactive Airway Disease History of 2019 Novel Coronavirus Disease (Covid-19) PAST MEDICAL HISTORY Diagnosis Date COVID-19 10/10/2019 NEGATIVE MEDICAL HISTORY PAST SURGICAL HISTORY Procedure Laterality Date OTHER exploratory laparoscopy 2018 OTHER Excision of nose - mole Social History Tobacco Use Smoking status: Never Smoker Smokeless tobacco: Never Used Vaping Use Vaping Use: Never used Substance Use Topics Alcohol use: Yes Comment: rare Drug use: No Current Outpatient Medications on File Prior to Visit Medication Sig escitalopram oxalate (LEXAPRO) 10 mg tablet TAKE 1 TABLET BY MOUTH EVERY DAY Current Facility-Administered Medications on File Prior to Visit Medication FAMILY HISTORY Problem Relation Age of Onset Asthma Father Thyroid Brother Schizophrenia Brother Paranoid behavior Brother other (Bone Disease) Brother ALLERGIES No Known Allergies Review of Systems All other systems reviewed and are negative. BP 103/66 (BP Site: Left Arm, BP Position: Sitting, BP Cuff Size: Regular Adult) Pulse 61 Temp 36.9 C (98.5 F) (Oral) Ht 162.6 cm (5' 4.02 ) Wt 62.6 kg (138 lb) LMP 10/21/2021 SpO2 99% BMI 23.68 kg/m BMI 23.68 kg/(m^2) Physical Exam Vitals and nursing note reviewed. Constitutional: General: She is not in acute distress. Appearance: Normal appearance. She is well-developed and normal weight. She is not ill-appearing. HENT: Head: Normocephalic and atraumatic. Right Ear: Tympanic membrane normal. Left Ear: Tympanic membrane normal. Nose: Nose normal. Mouth/Throat: Mouth: Mucous membranes are moist. Eyes: Conjunctiva/sclera: Conjunctivae normal. Cardiovascular: Rate and Rhythm: Normal rate and regular rhythm. Heart sounds: Normal heart sounds. No murmur heard. Pulmonary: Effort: Pulmonary effort is normal. Breath sounds: Normal breath sounds. No wheezing or rales. Chest: Chest wall: No tenderness. Abdominal: General: Bowel sounds are normal. Palpations: Abdomen is soft. There is no mass. Tenderness: There is no abdominal tenderness. Musculoskeletal: General: Normal range of motion. Cervical back: Normal range of motion and neck supple. No tenderness. Lymphadenopathy: Cervical: No cervical adenopathy. Skin: General: Skin is warm and dry. Findings: No erythema or rash. Neurological: General: No focal deficit present. Mental Status: She is alert and oriented to person, place, and time. Psychiatric: Speech: Speech normal. Behavior: Behavior normal. Thought Content: Thought content normal. Judgment: Judgment normal. No results found for: HBA1C Cholesterol, Total (mg/dL) Date Value 01/07/2020 146 HDL Cholesterol (mg/dL) Date Value 01/07/2020 57 LDL (mg/dL) Date Value 01/07/2020 80 Triglyceride (mg/dL) Date Value 01/07/2020 43 ASSESSMENT/PLAN: 1. Well adult exam - ICD9: V70.0, ICD10: Z00.00 (primary diagnosis) - Counseled on healthy diet and regular exercise 2. Anxiety and depression - ICD9: 300.00, 311, ICD10: F41.9, F32.A Stable on lexapro 3. Seasonal allergies - ICD9: 477.9, ICD10: J30.2 stable Cris Flowers APRN.CNP Portions of this note have been entered by ancillary staff. I have reviewed and when necessary edited, so that they are an adequate record of my encounter with this patient. documented in this encounter [facility] [place] 11-08-2021 Nurse Note Labs drawn by ABEL Cooper. Venipuncture performed to left antecubital. Number of tubes collected: 1 gold and 1 lavender. documented in this encounter [facility] [place] 11-01-2021 Miscellaneous Notes Manuel called before opening and left a vm to cancel lab appointment for today. I called and left VM to call the office so we can reschedule the appointment. Rubina Davis MA documented in this encounter [facility] [place] 10-29-2021 Miscellaneous Notes Addended by: CRIS FLOWERS on: 10/29/2021 08:45 AM Modules accepted: Orders Wellness labs ordered Cris Flowers APRN.CNP Called patient to schedule wellness visit as she sent a request. Also, schedule wellness lab appointment. Rubina Davis MA documented in this encounter [facility] [place] 10-08-2021 Miscellaneous Notes Called patient and scheduled appointment for medication. Rubina Davis MA documented in this encounter [facility] [place] 10-08-2021 Miscellaneous Notes Refill provided but patient is in need of a routine care office visit. Melba Elena APRN.ADELAIDE Pharmacy requesting refill: No appointment scheduled. Pending Prescriptions Disp Refills ESCITALOPRAM 10 MG TABLET 90 tablet 1 Sig: TAKE 1 TABLET BY MOUTH EVERY DAY RONEY: Yes Date of last visit:07/16/2020 Phone #: [phone] (home) [phone] (work) [phone] (cell) The patients preferred pharmacy has been captured for this encounter? Yes Rubina Davis MA documented in this encounter [facility] [place] [facility] AP[facility]MENT CANCELLED- Primary [facility] Diagnosis Well adult exam- Primary Routine general medical examination at a health care facility Anxiety and depression Dysthymic disorder Seasonal allergies Allergic rhinitis, cause unspecified [facility] Diagnosis Foot pain, right- Primary Pain in limb [facility] Diagnosis Vaginal yeast infection- Primary Candidiasis of vulva and vagina Dysuria [facility] Diagnosis Right lower quadrant abdominal pain- Primary Abdominal pain, right lower quadrant Bloating Flatulence, eructation, and gas pain Anxiety and depression Dysthymic disorder [facility] Diagnosis Eustachian tube dysfunction, right- Primary documented in this encounter [facility] [place] Summary Purpose Family History No Family History Records FoundNo Family History Records FoundNo Family History Records FoundNo Family History Records FoundNo Family History Records FoundNo Family History Records FoundNo Family History Records FoundNo Family History Records Found Advance Directives No Advanced Directives Records FoundNo Advanced Directives Records FoundNo Advanced Directives Records FoundNo Advanced Directives Records FoundNo Advanced Directives Records FoundNo Advanced Directives Records FoundNo Advanced Directives Records FoundNo Advanced Directives Records Found Health Concerns Infection Onset Date Last Indicated Resolved Time COVID-19 Rule-Out 07/17/2020 07/17/2020 07/20/2020 7:10 AM EST Reason for Referral Specialty Diagnoses / Procedures Referred By Contac t Referred To Contact CT IMAGING Diagnoses Right lower quadrant abdominal pain Procedures CT ABDOMEN W IVCON CT ABDOMEN W/CONTRAST Cris Flowers, [employer]I DEPARTMENT MANAGER.SLIPMAN [address] [place], [place] [address] Ct Imaging Referral ID Status Reason Start Date Expiration Date Visits Requested Visits Authorized [id number] Pending Review Auto-Generat ed Referral 12/05/2022 01/04/2024 1 1 Additional Source Comments INFORMATION SOURCE (unrecogn ized section and content) DATE CREATED AUTHOR AUTHOR'S ORGANIZ ATION 01/14/2020 [facility] [place] DATE CREATED AUTHOR AUTHOR'S ORGANIZ ATION 05/12/2020 [facility] ([place]) DATE CREATED AUTHOR AUTHOR'S ORGANIZ ATION 01/07/2021 [facility] DATE CREATED AUTHOR AUTHOR'S ORGANIZ ATION 11/11/2021 [facility] DATE CREATED AUTHOR AUTHOR'S ORGANIZ ATION 01/05/2023 [facility] DATE CREATED AUTHOR AUTHOR'S ORGANIZ ATION 01/06/2023 [facility] DATE CREATED AUTHOR AUTHOR'S ORGANIZ ATION 07/18/2023 [facility] Source Comments (unrecognize d section and content) In the event this informatio n is protected by the Federal Confidentiality of Alcohol and Drug Abuse Patient Records regulations: The Federal rules restrict any use of the information to criminally investigate or prosecute any alcohol or drug abuse patient.[facility] the event this information is protected by the Federal Confidentiality of Alcohol and Drug Abuse Patient Records regulations: The Federal rules restrict any use of the information to criminally investigate or prosecute any alcohol or drug abuse patient.[facility], [place]woodIn the event this information is protected by the Federal Confidentiality of Alcohol and Drug Abuse Patient Records regulations: The Federal rules restrict any use of the information to criminally investigate or prosecute any alcohol or drug abuse patient.[facility], [place]woodIn the event this information is protected by the Federal Confidentiality of Alcohol and Drug Abuse Patient Records regulations: The Federal rules restrict any use of the information to criminally investigate or prosecute any alcohol or drug abuse patient.[facility], [place]woodIn the event this information is protected by the Federal Confidentiality of Alcohol and Drug Abuse Patient Records regulations: The Federal rules restrict any use of the information to criminally investigate or prosecute any alcohol or drug abuse patient.[facility], [place]woodIn the event this information is protected by the Federal Confidentiality of Alcohol and Drug Abuse Patient Records regulations: The Federal rules restrict any use of the information to criminally investigate or prosecute any alcohol or drug abuse patient.[facility], [place]In the event this information is protected by the Federal Confidentiality of Alcohol and Drug Abuse Patient Records regulations: The Federal rules restrict any use of the information to criminally investigate or prosecute any alcohol or drug abuse patient.[facility], [place]woodIn the event this information is protected by the Federal Confidentiality of Alcohol and Drug Abuse Patient Records regulations: The Federal rules restrict any use of the information to criminally investigate or prosecute any alcohol or drug abuse patient.[facility], [place]woodIn the event this information is protected by the Federal Confidentiality of Alcohol and Drug Abuse Patient Records regulations: The Federal rules restrict any use of the information to criminally investigate or prosecute any alcohol or drug abuse patient.[facility], [place]woodIn the event this information is protected by the Federal Confidentiality of Alcohol and Drug Abuse Patient Records regulations: The Federal rules restrict any use of the information to criminally investigate or prosecute any alcohol or drug abuse patient.[facility], [place]woodIn the event this information is protected by the Federal Confidentiality of Alcohol and Drug Abuse Patient Records regulations: The Federal rules restrict any use of the information to criminally investigate or prosecute any alcohol or drug abuse patient.[facility], [place]woodIn the event this information is protected by the Federal Confidentiality of Alcohol and Drug Abuse Patient Records regulations: The Federal rules restrict any use of the information to criminally investigate or prosecute any alcohol or drug abuse patient.[facility], [place]woodIn the event this information is protected by the Federal Confidentiality of Alcohol and Drug Abuse Patient Records regulations: The Federal rules restrict any use of the information to criminally investigate or prosecute any alcohol or drug abuse patient.[facility], [place]woodIn the event this information is protected by the Federal Confidentiality of Alcohol and Drug Abuse Patient Records regulations: The Federal rules restrict any use of the information to criminally investigate or prosecute any alcohol or drug abuse patient.[facility], [place]woodIn the event this information is protected by the Federal Confidentiality of Alcohol and Drug Abuse Patient Records regulations: The Federal rules restrict any use of the information to criminally investigate or prosecute any alcohol or drug abuse patient.[facility], [place]woodIn the event this information is protected by the Federal Confidentiality of Alcohol and Drug Abuse Patient Records regulations: The Federal rules restrict any use of the information to criminally investigate or prosecute any alcohol or drug abuse patient.[facility], [place]woodIn the event this information is protected by the Federal Confidentiality of Alcohol and Drug Abuse Patient Records regulations: The Federal rules restrict any use of the information to criminally investigate or prosecute any alcohol or drug abuse patient.[facility], [place]woodIn the event this information is protected by the Federal Confidentiality of Alcohol and Drug Abuse Patient Records regulations: The Federal rules restrict any use of the information to criminally investigate or prosecute any alcohol or drug abuse patient.[facility], [place]woodIn the event this information is protected by the Federal Confidentiality of Alcohol and Drug Abuse Patient Records regulations: The Federal rules restrict any use of the information to criminally investigate or prosecute any alcohol or drug abuse patient.[facility], [place]woodIn the event this information is protected by the Federal Confidentiality of Alcohol and Drug Abuse Patient Records regulations: The Federal rules restrict any use of the information to criminally investigate or prosecute any alcohol or drug abuse patient.[facility], [place]woodIn the event this information is protected by the Federal Confidentiality of Alcohol and Drug Abuse Patient Records regulations: The Federal rules restrict any use of the information to criminally investigate or prosecute any alcohol or drug abuse patient.[facility], [place]woodIn the event this information is protected by the Federal Confidentiality of Alcohol and Drug Abuse Patient Records regulations: The Federal rules restrict any use of the information to criminally investigate or prosecute any alcohol or drug abuse patient.[facility], [place]woodIn the event this information is protected by the Federal Confidentiality of Alcohol and Drug Abuse Patient Records regulations: The Federal rules restrict any use of the information to criminally investigate or prosecute any alcohol or drug abuse patient.[facility] [place] Reason for Visit (unrecogniz ed section and content) Reason Comments Appointment Reason Comments Appointment Orders Reason Comments Wellness Reason Onset Date Comments Refill Request Refill Request 01/11/2022 Reason Comments Ankle Pain States right ankle p ain. States she runs. States pain has been present for a couple weeks. Reason Comments collect payment Reason Comments Vaginal Problem States itch and burn ing. States itch is constants in vaginal area. States some burning while urinating. Has noticed symptoms for about 2 days. Reason Comments Insurance Authorization Reason Comments Edema States bloating with the pain for about 3 weeks. Abdominal Pain States lower right a bdominal pain. States has noticed pain for awhile off and on. Reason Comments Results Reason Onset Date Comments Refill Request Refill Request 04/24/2023 Reason Comments Ear Problem Was seen about a mon ago for an ear infection twice, has had steroid and abx. Had appt with ENT and was told to give it time.Still having problems can't get in with ent until end of July. Care Teams (unrecognized sec tion and content) [employer] Relationship Specialty Start Date End Date Cris Flowers, DELI DEPARTMENT MANAGER.[facility] [address] [place], [place] [id number] PCP - General Nurse Practitioner 11/26/19 Final Assembler [employer] Relationship Specialty Start Date End Date Cris Flowers, DELI DEPARTMENT MANAGER.[facility] [address] [place] [address] [address] [place], [place] [address] PCP - General Nurse Practitioner 11/26/19 Final Assembler [employer] Relationship Specialty Start Date End Date Cris Flowers, DELI DEPARTMENT MANAGER.[address] [place] [address] PCP - General Nurse Practitioner 11/26/19 Final Assembler [employer] Relationship Specialty Start Date End Date Cris Flowers, DELI DEPARTMENT MANAGER.[facility] [address] [place] [place] [address] PCP - General Nurse Practitioner 11/26/19 Final Assembler [employer] Relationship Specialty Start Date End Date Cris Flowers, DELI DEPARTMENT MANAGER.[address] [place] [address] PCP - General Nurse Practitioner 11/26/19 Final Assembler [employer] Relationship Specialty Start Date End Date Cris Flowers, DELI DEPARTMENT MANAGER.[place] [address] [place], [place] [address] PCP - General Nurse Practitioner 11/26/19 Final Assembler [employer] Relationship Specialty Start Date End Date Cirs Flowers, DELI DEPARTMENT MANAGER.[facility] [address] [place] [place] [address] PCP - General Nurse Practitioner 11/26/19 Final Assembler [employer] Relationship Specialty Start Date End Date Cris Flowers, DELI DEPARTMENT MANAGER.[facility] [address] [place] [place] [address] PCP - General Nurse Practitioner 11/26/19 Final Assembler [employer] Relationship Specialty Start Date End Date Cris Flowers, DELI DEPARTMENT MANAGER.[facility] [address] [place] [place] [address] PCP - General Nurse Practitioner 11/26/19 Final Assembler [employer] Relationship Specialty Start Date End Date Cris Flowers, DELI DEPARTMENT MANAGER.[facility] [address] [place] [place] [address] PCP - General Nurse Practitioner 11/26/19 Final Assembler Boat Relationship Specialty Start Date End Date Cris Flowers, DELI DEPARTMENT MANAGER.[facility] [address] [place] [place] [address] PCP - General Nurse Practitioner 11/26/19 Final Assembler Boat Relationship Specialty Start Date End Date Cris Flowers, DELI DEPARTMENT MANAGER.[facility] [address] [place] [place] [address] PCP - General Nurse Practitioner 11/26/19 Final Assembler Boat Relationship Specialty Start Date End Date Cris Flowers, DELI DEPARTMENT MANAGER.[facility] [address] [place] [place] [address] PCP - General Nurse Practitioner 11/26/19 Final Assembler Boat Relationship Specialty Start Date End Date Cris Flowers, DELI DEPARTMENT MANAGER.[facility] [address] [place] [place] [address] PCP - General Nurse Practitioner 11/26/19 Final Assembler Boat Relationship Specialty Start Date End Date Cris Flowers, DELI DEPARTMENT MANAGER.[facility] [address] [place], [place] [address] PCP - General Nurse Practitioner 11/26/19 Final Assembler Boat Relationship Specialty Start Date End Date Cris Flowers, DELI DEPARTMENT MANAGER.[facility] [address] [place], [place] [address] PCP - General Nurse Practitioner 11/26/19 Final Assembler Boat Relationship Specialty Start Date End Date Cris Flowers, DELI DEPARTMENT MANAGER.[facility] [address] [place], [place] [id number] PCP - General Nurse Practitioner 11/26/19 FOR RECORDS PERTAINING TO PATIENTS WHO ARE OR HAVE BEEN ENROLLED IN A CHEMICAL DEPENDENCY/SUBSTANCEABUSE PROGRAM, SOME INFORMATION MAY BE OMITTED. This clinical summary was aggregated from multiple sources. Caution should be exercised in using it in the provision of clinical care. This summary normalizes information from multiple sources, and as a consequence, information in this document may materially change the coding, format and clinical context of patient data. In addition, data may be omitted in some cases. CLINICAL DECISIONS SHOULD BE BASED ON THE PRIMARY CLINICAL RECORDS. [facility] [employer] [facility]. provides no warranty or guarantee of the accuracy or completeness of information in this document.
[2023-08-14 16:25] LABS: HPV Reflexed? NOT INDICATED
== END | disposition home or self-care (01) ==
LOC: LABSPEC 10:57
PROVIDERS: Referring Provider Obstetrics & Gynecology; Visit Provider Obstetrics & Gynecology
DX: Z12.4 Encounter for screening for malignant neoplasm of cervix (principal)
CPT/HCPCS: 88175; G0145

== ENCOUNTER → 2023-08-18 | Outpatient (CLI) | payer MEDICAID, SELFPAY ==
--- NOTE | 2023-08-18 07:58 | BI_ITS ---
MAMMOGRAPHY - BILATERAL DIAGNOSTIC REASON FOR EXAM: Female, 28 years old. Palpable lump in the inferior central portion of the left breast. PERTINENT HISTORY: Non-contributory. TECHNIQUE: Digital bilateral breast anne (3D mammographic acquisition) in the CC and MLO projections. 2-D mediolateral oblique (MLO) and craniocaudad (CC) views of both breasts were obtained. CAD: Full Field Digital Mammography with Computer Added Detection was performed. COMPARISON: None. Baseline examination. FINDINGS: Breast Composition: The breasts are extremely dense, which lowers the sensitivity of mammography. There are no dominant masses or suspicious calcifications. No other significant abnormalities are identified. BI/DIAG MAMM W/CAD, BILAT IMPRESSION: Negative diagnostic mammogram. With the patient''s history of a palpable lump in the left breast, targeted correlation with ultrasound is recommended. ASSESSMENT CATEGORY: BIRADS Category 0: Incomplete. Need additional imaging evaluation. A letter regarding these results will be sent to the patient by the facility within 30 days. Approximately 10% of breast cancers are not detected by mammography. A normal mammogram should not delay biopsy of a clinically suspicious abnormality. Electronically Signed: Henry Pyle MD at 9:45 EST ,
--- NOTE | 2023-08-18 07:58 | US_ITS ---
STUDY: ULTRASOUND BREAST - LEFT REASON FOR EXAM: Female, 28 years old. Palpable lump at the 6:00 position of the left breast. TECHNIQUE: Axial and longitudinal images of the LEFT breast were performed with a high resolution ultrasound transducer. # OF IMAGES: 33 COMPARISON: Correlation is made with prior mammogram done earlier in the day. FINDINGS: LEFT Breast: There is an 8 mm x 9 mm x 2 mm cyst at the 6:00 position of the breast at 4 cm from the nipple. There is also evidence of a 7 mm x 4 mm x 3 mm benign-appearing lymph node at the 6:00 position breast at 4 cm from the nipple. US/Breast Limited Unilateral IMPRESSION: 8 mm x 9 mm x 2 mm cyst at the 6:00 position breast at 4 sinuses from the nipple as well as a small benign-appearing lymph node at that site. ASSESSMENT CATEGORY: BIRADS Category 2: Benign. A letter regarding these results will be sent to the patient by the facility within 30 days. Electronically Signed: Henry Pyle MD at 11:37 EST ,
--- NOTE | 2023-08-18 07:58 | US_ITS ---
STUDY: ULTRASOUND OF THE FEMALE PELVIS - COMPLETE REASON FOR EXAM: Female, 28 years old. Dyspareunia-DEEP LMP: August 11, 2023. TECHNIQUE: Transabdominal and Transvaginal TECHNICAL QUALITY: Adequate. COMPARISON: None. FINDINGS: The uterus is anteverted and is in a midline position. The uterus measures 7.4 cm x 5.8 cm x 3.4 cm. There is a Nabothian cyst of the cervix. The endometrium measures 7.4 mm in thickness, and is heterogeneous (striated). There is no demonstrated endometrial mass. There is no demonstrated myometrial mass. I.U.D. - The patient does not have an I.U.D. The right ovary is visualized. The right ovary measures 3.2 cm x 2.9 cm x 3 cm. There is a 1.6 cm x 1.7 cm x 1.2 cm dominant follicle. There is no visualized right adnexal mass or complex lesion. There is normal arterial and normal venous vascularity. The left ovary is visualized. The left ovary measures 2.2 cm x 2.5 cm x 1.5 cm. There is no left ovarian cyst or ovarian mass. There is no visualized left adnexal mass or complex lesion. There is normal arterial and normal venous vascularity. There is minimal fluid in the cul-de-sac. The pre void volume of the bladder was 474 ml. US/Pelvic (Non ) IMPRESSION: Dominant follicle is seen in the right ovary. Electronically Signed: Henry Pyle MD at 14:27 EST ,
--- OUTSIDE RECORDS SUMMARY | 2023-08-18 08:17 | XMS RPT_ITS | CCD ---
Author Name Unknown Address [address] [place] [address] Organization [facility] Care Team Providers Care Fuel Cell Systems Engineer Name Role Phone MEGHANA COLÓNHEN Unavailable Unavailable VAN COLÓN Unavailable Unavailable IRA NICOLE Unavailable Unavailable Kristie CAGE SUPERVISOR.Cris BRYSON Primary Care Provider Kristie CAGE SUPERVISOR.Cris BRYSON Primary Care Provider Kristie CAGE SUPERVISOR.Cris BRYSON Primary Care Provider CRIS FLOWERS Primary [...] Drug Class(es) Dates Sig (Normalized) Sig (Original) [id number] 200 actuat albuterol 0.09 mg/actuat metered dose [...] 98.91 [degF] Rober Olivares APRN.CNP Work Phone: [facility] 07-16-2023 13:30-0500 Body weight 62.6 kg Rober Olivares APRN.CNP Work Phone: [facility] 07-16-2023 13:30-0500 Diastolic blood pressure 82 mm[Hg] Rober Olivares APRN.ASSOCIATE CURATOR Work Phone: [facility] 07-16-2023 13:30-0500 Heart rate 67 /min Rober Olivares APRN.CNP Work Phone: [facility] 07-16-2023 13:30-0500 Respiratory rate 16 /min Rober Olivares APRN.CNP Work Phone: [facility] 07-16-2023 13:30-0500 SaO2% (BldA) [Mass fraction] 100 % Rober Olivares APRN.CNP Work Phone: [facility] 07-16-2023 13:30-0500 Systolic blood pressure 123 mm[Hg] Rober Olivares CAGE SUPERVISOR.ASSOCIATE CURATOR Work Phone: [facility] 12-05-2022 10:04-0400 Body height 162.6 cm Cris Flowers CAGE SUPERVISOR.ASSOCIATE CURATOR Work Phone: [facility] 12-05-2022 10:04-0400 Body temperature 98.1 [degF] Cris Flowers CAGE SUPERVISOR.ASSOCIATE CURATOR Work Phone: [facility] 12-05-2022 10:04-0400 Body weight 65.41 kg Cris Flowers CAGE SUPERVISOR.ASSOCIATE CURATOR Work Phone: [facility] 12-05-2022 10:04-0400 Diastolic blood pressure 69 mm[Hg] Cris Flowers CAGE SUPERVISOR.ASSOCIATE CURATOR Work Phone: [facility] 12-05-2022 10:04-0400 Heart rate 56 /min Cris Flowers CAGE SUPERVISOR.ASSOCIATE CURATOR Work Phone: [facility] 12-05-2022 10:04-0400 SaO2% (BldA) [Mass fraction] 100 % Cris Flowers CAGE SUPERVISOR.ASSOCIATE CURATOR Work Phone: [facility] 12-05-2022 10:04-0400 Systolic blood pressure 106 mm[Hg] Cris Flowers CAGE SUPERVISOR.ASSOCIATE CURATOR Work Phone: [facility] 04-13-2022 15:45-0400 Body height 162.6 cm Cris Flowers CAGE SUPERVISOR.ASSOCIATE CURATOR Work Phone: [facility] 04-13-2022 15:45-0400 Body temperature 97.59 [degF] Cris Flowers CAGE SUPERVISOR.ASSOCIATE CURATOR Work Phone: [facility] 04-13-2022 15:45-0400 Body weight 65.5 kg Cris Flowers CAGE SUPERVISOR.ASSOCIATE CURATOR Work Phone: [facility] 04-13-2022 15:45-0400 Diastolic blood pressure 67 mm[Hg] Cris Flowers CAGE SUPERVISOR.ASSOCIATE CURATOR Work Phone: [facility] 04-13-2022 15:45-0400 Heart rate 72 /min Cris Kristie CAGE SUPERVISOR.ASSOCIATE CURATOR Work Phone: [facility] 04-13-2022 15:45-0400 SaO2% (BldA) [Mass fraction] 99 % Cris Kristie CAGE SUPERVISOR.ASSOCIATE CURATOR Work Phone: [facility] 04-13-2022 15:45-0400 Systolic blood pressure 106 mm[Hg] Cris Kristie CAGE SUPERVISOR.ASSOCIATE CURATOR Work Phone: [facility] 01-17-2022 10:57-0400 Body height 162.6 cm Cris Kristie CAGE SUPERVISOR.ASSOCIATE CURATOR Work Phone: [facility] 01-17-2022 10:57-0400 Body temperature 98.2 [degF] Cris Kristie CAGE SUPERVISOR.ASSOCIATE CURATOR Work Phone: [facility] 01-17-2022 10:57-0400 Body weight 63.14 kg Crisdm Flowers CAGE SUPERVISOR.ASSOCIATE CURATOR Work Phone: [facility] 01-17-2022 10:57-0400 Diastolic blood pressure 68 mm[Hg] Cris Kristie CAGE SUPERVISOR.ASSOCIATE CURATOR Work Phone: [facility] 01-17-2022 10:57-0400 Heart rate 58 /min Cris Kristie CAGE SUPERVISOR.ASSOCIATE CURATOR Work Phone: [facility] 01-17-2022 10:57-0400 SaO2% (BldA) [Mass fraction] 98 % Cris Kristie CAGE SUPERVISOR.ASSOCIATE CURATOR Work Phone: [facility] 01-17-2022 10:57-0400 Systolic blood pressure 101 mm[Hg] Cris Kristie CAGE SUPERVISOR.ASSOCIATE CURATOR Work Phone: [facility] 11-08-2021 08:58-0400 Body height 162.6 cm Crisdm Flowers CAGE SUPERVISOR.ASSOCIATE CURATOR Work Phone: [facility] 11-08-2021 08:58-0400 Body temperature 98.49 [degF] Cris Kristie CAGE SUPERVISOR.ASSOCIATE CURATOR Work Phone: [facility] 11-08-2021 08:58-0400 Body weight 62.6 kg Cris Flowers APRN.CNP Work Phone: [facility] 11-08-2021 08:58-0400 Diastolic blood pressure 66 mm[Hg] Cris Flowers APRN.CNP Work Phone: [facility] 11-08-2021 08:58-0400 Heart rate 61 /min Cris Flowers APRN.CNP Work Phone: [facility] 11-08-2021 08:58-0400 SaO2% (BldA) [Mass fraction] 99 % Cris Flowers APRN.CNP Work Phone: [facility] 11-08-2021 08:58-0400 Systolic blood pressure 103 mm[Hg] Cris Flowers APRN.CNP Work Phone: [facility] Encounters Encounter Date Encounter Type Care Provider Facility Start: 07-17-2023 Emergency department patient visit BUFFY MATHEWS Facility:[id number] Start: 07-16-2023 End: 07-16-2023 ambulatory ROBER OLIVARES Facility:[id number] Start: 07-16-2023 End: 07-16-2023 Patient encounter procedure Rober Olivares APRN.CNP Work Phone: [facility] Procedures Date Procedure Procedure Detail [...] Detail Author Start: 04-25-2028 Urine microalbumin profile [facility] Start: 02-17-2023 Covid-19 Vaccine ( season) Covid-19 Vaccine ( season) [facility] Start: 02-17-2023 Influenza vaccination C [facility] Start: 02-17-2022 Influenza vaccination C [facility] Start: 10-29-2021 End: 12-29-2021 CBC W Auto Differential panel - Blood CBC + DIFF Lab Routine Well adult exam Expected: 10/29/2021, Expires: 12/29/2021 [facility] Work Phone: Immunizations Immunization Date Immunization Notes Care Provider Magdiel santos 09-27-2020 COVID-19 vaccine, ag e 12+ yr (PFIZER-BIONTECH - PURPLE TOP) Cris Flowers APRN.ASSOCIATE CURATOR Work Phone: [facility] 09-04-2020 COVID-19 vaccine, ag e 12+ yr (PFIZER-BIONTECH - PURPLE TOP) Cris Flowers APRN.ASSOCIATE CURATOR Work Phone: [facility] 06-27-2018 influenza virus vacc ine, unspecified formulation Provider [facility] 04-25-2018 tetanus toxoid, redu kiki diphtheria toxoid, and acellular pertussis vaccine, adsorbed Crisdm Flowers APRN.ASSOCIATE CURATOR Work Phone: [facility] Payers Date Payer Category Payer Medicaid [id number] 2023 Private Health Insurance [employer] [place] [id number] 2023-Present [address] [address] [place] [address] Medicaid [id number] 2019 Unknown [id number] 2019 Unknown [id number] 2019 Unknown [id number] 2014 Unknown [id number] Unknown [id number] Unknown [id number] Social History Date Type Detail Facility Start: 06-27-2018 End: 06-16-2023 Tobacco smoking status NHIS Never smoked tobacco [facility] Start: 06-27-2018 End: 06-16-2023 Tobacco use and exposure Smokeless tobacco non-user [facility] Start: 02-26-2021 End: 07-16-2023 Alcohol intake Current drinker of alcohol (finding) [facility] Start: 11-26-2019 History SDOH Alcohol Comment rare [facility] Start: 1995 Sex Assigned At Female C [facility] Start: 10-29-2021 End: 04-13-2022 Exposure to SARS-CoV-2 (event) Not sure [facility] Start: 07-11-2022 End: 12-05-2022 History of Social function [facility] Start: 07-11-2022 End: 12-05-2022 Tobacco use panel [facility] Adult Depression Screening Assessment 0 [facility] Start: 06-15-2021 Gender identity Identifies as female gender (finding) [facility] Clinical Notes 10-08-2021 to 07-17-2023 Patient Rober Harry APRN.CNP - 07/16/2023 1:44 PM ESTTelephone Encounter - Hortencia Dudley MA - 04/21/2023 7:24 AM EDTTelephone Encounter - Ryan Grant - 12/05/2022 1:32 PM EDT Note Date & Type Note Facility 07-17-2023 Note HNO ID: [id number] Author: KARLEE RILEY CT Service: ? Author Type: Clinical Billing And Accounting Staff Assistant Type: Progress Notes Filed: 07/17/2023 21:17 Note [...] PATIENT PRESENTS WITH AN IMPLANTABLE OR ATTACHED FUN HOUSE ATTENDANT: No ALLERGIES: Reviewed and unchanged CONTRAST ALLERGY: [...] DATE: July 17, 2023 TIME: 9:16 PM [facility] 07-17-2023 Note HNO ID: [id number] Author: RAMYA RAMIREZ RT(R) Service: Radiology Author [...] PATIENT PRESENTS WITH AN IMPLANTABLE OR ATTACHED FUN HOUSE ATTENDANT: No ALLERGIES: Reviewed and unchanged CONTRAST ALLERGY: [...] DATE: July 17, 2023 TIME: 8:19 PM [facility] 07-16-2023 Note HNO ID: [id number] Author: ROBER OLIVARES APRN.ASSOCIATE CURATOR Service: ? Author Type: Nurse Practitioner Type: [...] COVID-19 original vaccine, age 12+ yr, monovalent (PFIZER-BIONTNuvo Research - PURPLE TOP) 09/04/2020 09/27/2020 tetanus diphtheria [...] or other con (more content not included)... [facility] 07-16-2023 Instructions Rober Olivares APRN.ADELAIDE - 07/16/2023 1:50 PM EST Pt will follow up with PCP/ENT if not better in 2-3 days or go to emergency department if worsening condition Call offices to see if either can see you sooner documented in this encounter [facility] 07-16-2023 History of Presen t illness Narrative [...] COVID- original vaccine, age 12+ yr, monovalent ([employer] - PURPLE TOP) 09/04/2020 09/27/2020 tetanus diphtheria [...] as outlined above. documented in this encounter [facility] 06-22-2023 Note HNO ID: [id number] Author: BUFFY MATHEWS APRN.CNP Service: ? Author [...] Administered original vaccine, age 12+ yr, monovalent (E[employer]!-[employer]ver - PURPLE TOP) 09/04/2020 09/27/2020 tetanus diphtheria [...] - PREDNISONE 20 MG TABLET Buffy Mathews APRN.ASSOCIATE CURATOR The above reflects my independent exam and [...] relevant for today. Plan as outlined above. [facility] 06-16-2023 Note HNO ID: [id number] Author: Buffy Mathews APRN.ASSOCIATE CURATOR Service: ? Author Type: Nurse Practitioner Type: [...] COVID-19 original vaccine, age 12+ yr, monovalent (Simple[employer] - PURPLE TOP) 09/04/2020 09/27/2020 tetanus diphtheria [...] - RAPID STREP TEST B/O Buffy Mathews APRN.ASSOCIATE CURATOR The above reflects my independent exam and [...] relevant for today. Plan as outlined above. [facility] 04-21-2023 Miscellaneous Notes Formattin g of this note is different from the original. Pharmacy faxes requesting refill: Requested Prescriptions Pending Prescriptions Disp Refills escitalopram oxalate (LEXAPRO) 10 mg tablet [Pharmacy Med Name: ESCITALOPRAM 10 MG TABLET] 90 tablet Sig: take 1 tablet by mouth every day Date of last visit:12/05/22 Phone #: [phone] (home) [phone] (work) [phone] (cell) The patients preferred pharmacy has been captured for this encounter? yes documented in this encounter [facility] 03-21-2023 Miscellaneous Notes Formattin g of this note is different from the original. Pharmacy faxes requesting refill: Requested Prescriptions Pending Prescriptions Disp Refills buPROPion XL (WELLBUTRIN XL) 150 mg 24 hr tablet [Pharmacy Med Name: BUPROPION HCL XL 150 MG TABLET] 30 tablet 2 Sig: take 1 tablet by mouth every day Date of last visit:12/05/2022 Phone #: [phone] (home) [phone] (work) [phone] (cell) The patients preferred pharmacy has been captured for this encounter? yes documented in this encounter [facility] 02-23-2023 Miscellaneous Notes Addended by: CRIS FLOWERS on: 02/23/2023 12:27 PM Modules accepted: Orders documented in this encounter [facility] 01-04-2023 Miscellaneous Notes Formattin g of this note might be different from the original. I left message for patient to return call. Office phone number was provided. Rubina Davis MA Can you update Manuel that her CT of her abdomen and pelvis is normal. Thanks Cris Flowers APRN.ASSOCIATE CURATOR documented in this encounter [facility] 12-05-2022 Miscellaneous Notes Formattin g of this note might be different from the original. Auth request started with Day with pending case # [id number] Ryan Grant Note signed Cris, I tried starting the request and they are requesting the office note. Please advise when this is completed and I will send the request Ryan Grant Crsi ordered a CT Abdomen W IVCON oral and IV contrast. Diagnoses of Right lower quadrant abdominal pain [R10.31] Needing prior auth with [employer] insurance. Rubina Davis MA documented in this encounter [facility] 12-05-2022 Note HNO ID: [id number] Author: Cris Flowers APRN.ASSOCIATE CURATOR Service: ? Author Type: Nurse Practitioner Type: [...] lexapro at 5mg daily. Cris Flowers APRN.CNP [facility] 12-05-2022 Instructions Cris Flowers APRN.ADELAIDE - 12/05/2022 10:50 AM EDT If you develop any severe abdominal pain please go to ER for evaluation. documented in this encounter [facility] 12-05-2022 History of Presen t illness Narrative [...] Cris Flowers APRN.ADELAIDE documented in this encounter [facility] 04-15-2022 Miscellaneous Notes Formattin g of this note might be different from the original. Called patient to collect payment of $30 from DOS 04/13. I left message for patient to return call. Office phone number was provided. Rubina Davis MA documented in this encounter [facility] 04-13-2022 Note HNO ID: [id number] Author: Cris Flowers APRN.ASSOCIATE CURATOR Service: ? Author Type: Nurse Practitioner Type: Progress Notes Filed: 04/25/2022 10:24 AM Note Text: Manuel Maldonado is a [...] - UA DIP B/O Cris Flowers APRN.ADELAIDE [facility] 04-13-2022 Instructions Cris Flowers APRN.CNP - 04/13/2022 4:24 PM EDT Let me know if doesn't improve or resolve. documented in this encounter [facility] 04-13-2022 History of Presen t illness Narrative [...] yeast - UA DIP B/O Cris Flowers APRN.ASSOCIATE CURATOR documented in this encounter [facility] 01-17-2022 Note HNO ID: [id number] Author: Cris Flowers APRN.ASSOCIATE CURATOR Service: ? Author Type: Nurse Practitioner Type: [...] with interventions follow up Cris Flowers APRN.CNP [facility] 01-17-2022 Instructions Cris Flowers APRN.ADELAIDE - 01/17/2022 11:22 AM EDT Suggest rolling foot on ice bottle to help reduce inflammation. Also suggest nsaid such as ibuprofen or aleve. If doesn't improve let me know. documented in this encounter [facility] 01-17-2022 History of Presen t illness Narrative [...] Cris Flowers APRN.ADELAIDE documented in this encounter [facility] 11-08-2021 Miscellaneous Notes Send 90 day supply with refills. Pharmacy faxes requesting refill: Pending Prescriptions Disp Refills ESCITALOPRAM 10 MG TABLET 30 tablet 1 Sig: TAKE 1 TABLET BY MOUTH EVERY DAY RONEY: Yes Date of last visit: 06/15/2021 Phone #: [phone] (home) [phone] (work) [phone] (cell) The patients preferred pharmacy has been captured for this encounter? yes documented in this encounter [facility] 11-08-2021 Instructions Cris Flowers APRN.CNP - 11/08/2021 [...] or less daily. documented in this encounter [facility] 11-08-2021 History of Presen t illness Narrative Manuel Maldonado is a 26 year old female here today for a check up on her medical problems. Concern(s) today include: Patient presents with: Wellness she is doing well. She is eating a healthy diet. She does exercise as well. She is doing well and has no concerns. Labs done and reviewed. She follows with concrete form setter for her pap. She does take lexapro [...] with this patient. documented in this encounter [facility] 11-08-2021 Nurse Note Labs drawn by ABEL Cooper. Venipuncture performed to left antecubital. Number of tubes collected: 1 gold and 1 lavender. documented in this encounter [facility] 11-01-2021 Miscellaneous Notes Manuel called before opening and left a vm to cancel lab appointment for today. I called and left VM to call the office so we can reschedule the appointment. Rubina Davis MA documented in this encounter [facility] 10-29-2021 Miscellaneous Notes Addended by: CRIS FLOWERS on: 10/29/2021 08:45 AM Modules accepted: Orders Wellness labs ordered Cris Flowers APRN.CNP Called patient to schedule wellness visit as she sent a request. Also, schedule wellness lab appointment. Rubina Davis MA documented in this encounter [facility] 10-08-2021 Miscellaneous Notes Called patient and scheduled appointment for medication. Rubina Davis MA documented in this encounter [facility] 10-08-2021 Miscellaneous Notes Refill provided but patient is in need of a routine care office visit. Melba Elena APRN.ADELAIDE Pharmacy requesting refill: No appointment scheduled. Pending Prescriptions Disp Refills ESCITALOPRAM 10 MG TABLET 90 tablet 1 Sig: TAKE 1 TABLET BY MOUTH EVERY DAY RONEY: Yes Date of last visit:07/16/2020 Phone #: [phone] (home) [phone] (work) [phone] (cell) The patients preferred pharmacy has been captured for this encounter? Yes Rubina Davis MA documented [facility] encounter [facility]- [facility] Well adult exam- Primary Routine general medical examination at a health care facility Anxiety and depression Dysthymic disorder Seasonal allergies Allergic rhinitis, cause unspecified [facility] Diagnosis Foot pain, right- Primary Pain in limb [facility] Diagnosis Vaginal yeast infection- Primary Candidiasis of vulva and vagina Dysuria [facility] Diagnosis Right lower quadrant abdominal pain- Primary Abdominal pain, right lower quadrant Bloating Flatulence, eructation, and gas pain Anxiety and depression Dysthymic disorder [facility] Eustachian tube dysfunction, right- Primary documented in this encounter [facility] Summary Purpose Family History No Family History [...] W IVCON CT ABDOMEN W/CONTRAST Cris Flowers, CAGE SUPERVISOR.ASSOCIATE CURATOR [address] [place], [place] [address] Ct Imaging Referral ID Status Reason Start Date Expiration Date Visits Requested Visits Authorized [id number] Pending Review Auto-Generat ed Referral 12/05/2022 01/04/2024 1 1 Additional Source Comments INFORMATION SOURCE (unrecogn ized section and content) DATE CREATED AUTHOR AUTHOR'S ORGANIZ ATION 01/14/2020 [facility] DATE CREATED AUTHOR AUTHOR'S ORGANIZ ATION 05/12/2020 [facility] ([place]) DATE CREATED AUTHOR AUTHOR'S ORGANIZ ATION 01/07/2021 [facility] [place] DATE CREATED AUTHOR AUTHOR'S ORGANIZ ATION 11/11/2021 [facility] DATE CREATED AUTHOR AUTHOR'S ORGANIZ ATION 01/05/2023 [facility] DATE CREATED AUTHOR AUTHOR'S ORGANIZ ATION 01/06/2023 [facility] DATE CREATED AUTHOR AUTHOR'S ORGANIZ ATION 07/18/2023 [facility] Source Comments (unrecognize d section and content) In the event this informatio n is protected by the Federal Confidentiality of Alcohol and Drug Abuse Patient Records regulations: The Federal rules restrict any use of the information to criminally investigate or prosecute any alcohol or drug abuse patient.[facility] the event this information is protected by the Federal Confidentiality of Alcohol and Drug Abuse Patient Records regulations: The Federal rules restrict any use of the information to criminally investigate or prosecute any alcohol or drug abuse patient.[facility] HospitalIn the event this information is protected by the Federal Confidentiality of Alcohol and Drug Abuse Patient Records regulations: The Federal rules restrict any use of the information to criminally investigate or prosecute any alcohol or drug abuse patient.[facility] HospitalIn the event this information is protected by the Federal Confidentiality of Alcohol and Drug Abuse Patient Records regulations: The Federal rules restrict any use of the information to criminally investigate or prosecute any alcohol or drug abuse patient.[facility] HospitalIn the event this information is protected by the Federal Confidentiality of Alcohol and Drug Abuse Patient Records regulations: The Federal rules restrict any use of the information to criminally investigate or prosecute any alcohol or drug abuse patient.[facility] HospitalIn the event this information is protected by the Federal Confidentiality of Alcohol and Drug Abuse Patient Records regulations: The Federal rules restrict any use of the information to criminally investigate or prosecute any alcohol or drug abuse patient.[facility] HospitalIn the event this information is protected by the Federal Confidentiality of Alcohol and Drug Abuse Patient Records regulations: The Federal rules restrict any use of the information to criminally investigate or prosecute any alcohol or drug abuse patient.[facility] HospitalIn the event this information is protected by the Federal Confidentiality of Alcohol and Drug Abuse Patient Records regulations: The Federal rules restrict any use of the information to criminally investigate or prosecute any alcohol or drug abuse patient.[facility] HospitalIn the event this information is protected by the Federal Confidentiality of Alcohol and Drug Abuse Patient Records regulations: The Federal rules restrict any use of the information to criminally investigate or prosecute any alcohol or drug abuse patient.[facility] HospitalIn the event this information is protected by the Federal Confidentiality of Alcohol and Drug Abuse Patient Records regulations: The Federal rules restrict any use of the information to criminally investigate or prosecute any alcohol or drug abuse patient.[facility] HospitalIn the event this information is protected by the Federal Confidentiality of Alcohol and Drug Abuse Patient Records regulations: The Federal rules restrict any use of the information to criminally investigate or prosecute any alcohol or drug abuse patient.[facility] HospitalIn the event this information is protected by the Federal Confidentiality of Alcohol and Drug Abuse Patient Records regulations: The Federal rules restrict any use of the information to criminally investigate or prosecute any alcohol or drug abuse patient.[facility] HospitalIn the event this information is protected by the Federal Confidentiality of Alcohol and Drug Abuse Patient Records regulations: The Federal rules restrict any use of the information to criminally investigate or prosecute any alcohol or drug abuse patient.[facility] HospitalIn the event this information is protected by the Federal Confidentiality of Alcohol and Drug Abuse Patient Records regulations: The Federal rules restrict any use of the information to criminally investigate or prosecute any alcohol or drug abuse patient.[facility] HospitalIn the event this information is protected by the Federal Confidentiality of Alcohol and Drug Abuse Patient Records regulations: The Federal rules restrict any use of the information to criminally investigate or prosecute any alcohol or drug abuse patient.[facility] HospitalIn the event this information is protected by the Federal Confidentiality of Alcohol and Drug Abuse Patient Records regulations: The Federal rules restrict any use of the information to criminally investigate or prosecute any alcohol or drug abuse patient.[facility] HospitalIn the event this information is protected by the Federal Confidentiality of Alcohol and Drug Abuse Patient Records regulations: The Federal rules restrict any use of the information to criminally investigate or prosecute any alcohol or drug abuse patient.[facility] HospitalIn the event this information is protected by the Federal Confidentiality of Alcohol and Drug Abuse Patient Records regulations: The Federal rules restrict any use of the information to criminally investigate or prosecute any alcohol or drug abuse patient.[facility] HospitalIn the event this information is protected by the Federal Confidentiality of Alcohol and Drug Abuse Patient Records regulations: The Federal rules restrict any use of the information to criminally investigate or prosecute any alcohol or drug abuse patient.[facility] Hospital[facility] the event this information is protected by the Federal Confidentiality of Alcohol and Drug Abuse Patient Records regulations: The Federal rules restrict any use of the information to criminally investigate or prosecute any alcohol or drug abuse patient.[facility] HospitalIn the event this information is protected by the Federal Confidentiality of Alcohol and Drug Abuse Patient Records regulations: The Federal rules restrict any use of the information to criminally investigate or prosecute any alcohol or drug abuse patient.[facility] Hospital[facility] the event this information is protected by the Federal Confidentiality of Alcohol and Drug Abuse Patient Records regulations: The Federal rules restrict any use of the information to criminally investigate or prosecute any alcohol or drug abuse patient.[facility] HospitalIn the event this information is protected by the Federal Confidentiality of Alcohol and Drug Abuse Patient Records regulations: The Federal rules restrict any use of the information to criminally investigate or prosecute any alcohol or drug abuse patient.[facility] Reason for Visit (unrecogniz ed section and [...] Care Teams (unrecognized sec tion and content) Fuel Cell Systems Engineer Relationship Specialty Start Date End Date Cris Flowers, CAGE SUPERVISOR.[facility] [address] [place], [place] [id number] PCP - General Nurse Practitioner 11/26/19 Fuel Cell Systems Engineer Relationship Specialty Start Date End Date Cris Flowers, CAGE SUPERVISOR.ASSOCIATE CURATOR [address] [place] [address] [address] [place], [place] [address] PCP - General Nurse Practitioner 11/26/19 Fuel Cell Systems Engineer Relationship Specialty Start Date End Date Cris Flowers, CAGE SUPERVISOR.[address] [address] PCP - General Nurse Practitioner 11/26/19 Fuel Cell Systems Engineer Relationship Specialty Start Date End Date Cris Flowers, CAGE SUPERVISOR.ASSOCIATE CURATOR [address] [place], [place] [address] PCP - General Nurse Practitioner 11/26/19 Fuel Cell Systems Engineer Relationship Specialty Start Date End Date Cris Flowers, CAGE SUPERVISOR.[address] [address] PCP - General Nurse Practitioner 11/26/19 Fuel Cell Systems Engineer Relationship Specialty Start Date End Date Cris Flowers, CAGE SUPERVISOR.[facility] [address] [place], [place] [address] PCP - General Nurse Practitioner 11/26/19 Fuel Cell Systems Engineer Relationship Specialty Start Date End Date Cris Flowers, CAGE SUPERVISOR.ASSOCIATE CURATOR [address] [place], [place] [address] PCP - General Nurse Practitioner 11/26/19 Fuel Cell Systems Engineer Relationship Specialty Start Date End Date Cris Flowers, CAGE SUPERVISOR.ASSOCIATE CURATOR [address] [place], [place] [address] PCP - General Nurse Practitioner 11/26/19 Fuel Cell Systems Engineer Relationship Specialty Start Date End Date Cris Flowers, CAGE SUPERVISOR.ASSOCIATE CURATOR [address] [place], [place] [address] PCP - General Nurse Practitioner 11/26/19 Fuel Cell Systems Engineer Relationship Specialty Start Date End Date Cris Flowers, CAGE SUPERVISOR.ASSOCIATE CURATOR [address] [place], [place] [address] PCP - General Nurse Practitioner 11/26/19 Fuel Cell Systems Engineer Relationship Specialty Start Date End Date Cris Flowers, CAGE SUPERVISOR.ASSOCIATE CURATOR [address] [place], [place] [address] PCP - General Nurse Practitioner 11/26/19 Fuel Cell Systems Engineer Relationship Specialty Start Date End Date Cris Flowers, CAGE SUPERVISOR.ASSOCIATE CURATOR [address] [place], [place] [address] PCP - General Nurse Practitioner 11/26/19 Fuel Cell Systems Engineer Relationship Specialty Start Date End Date Cris Flowers, CAGE SUPERVISOR.ASSOCIATE CURATOR [address] [place], [place] [address] PCP - General Nurse Practitioner 11/26/19 Fuel Cell Systems Engineer Relationship Specialty Start Date End Date Cris Flowers, CAGE SUPERVISOR.ASSOCIATE CURATOR [address] [place], [place] [address] PCP - General Nurse Practitioner 11/26/19 Fuel Cell Systems Engineer Relationship Specialty Start Date End Date Cris Flowers, CAGE SUPERVISOR.ASSOCIATE CURATOR [address] [place], [place] [id number] PCP - General Nurse Practitioner 11/26/19 Fuel Cell Systems Engineer Relationship Specialty Start Date End Date Cris Flowers, CAGE SUPERVISOR.ASSOCIATE CURATOR [address] [place], [place] [address] PCP - General Nurse Practitioner 11/26/19 Fuel Cell Systems Engineer Relationship Specialty Start Date End Date Cris Flowers, CAGE SUPERVISOR.ASSOCIATE CURATOR [address] [place], [place] [id number] PCP - General Nurse Practitioner 11/26/19 FOR [...] BE BASED ON THE PRIMARY CLINICAL RECORDS. [facility] [employer] [facility]. provides no warranty or guarantee of the accuracy or completeness of information in this document.
== END | disposition home or self-care (01) ==
LOC: OPBI 07:56
PROVIDERS: Referring Provider Obstetrics & Gynecology; Visit Provider Obstetrics & Gynecology
DX: N63.20 Unspecified lump in the left breast, unspecified quadrant (principal); N94.12 Deep dyspareunia
CPT/HCPCS: 77062; 76642; 76830; 76856; 77066; G0279

== ENCOUNTER → 2023-09-29 | Outpatient (CLI) | payer MEDICAID, SELFPAY ==
[2023-09-29 11:15] LABS: Hematocrit 42.3 % (37-47); Hemoglobin 14.2 g/dL (12.0-15.0); Mean Corp Hgb Conc 33.6 g/dL (32-36); Mean Corpuscular Hgb 29.1 pg (27.0-32.0); Mean Corpuscular Volume 86.7 fL (81-99); Mean Platelet Vol. 9.1 fl (6.2-12.0); Platelet Count 223 K/mm3 (150-450); Red Blood Count 4.88 M/mm3 (4.2-5.4); White Blood Count 5.2 K/mm3 (4.4-11.0)
== END | disposition home or self-care (01) ==
LOC: PAVLAB 10:47
PROVIDERS: Referring Provider Obstetrics & Gynecology; Visit Provider Obstetrics & Gynecology
DX: Z01.818 Encounter for other preprocedural examination (principal)
CPT/HCPCS: 36415; 85027; 86850; 86900; 86901

== ENCOUNTER 2023-10-10 09:51 | Day surgery (SDC) | payer MEDICAID, SELFPAY ==
[2023-10-10] VITALS (7 sets, daily range): BP systolic 98–105; BP diastolic 58–76; PULSE 60–87; RESP 16; TEMP 36.3–36.7; O2SAT 100; BMI 23.1
[2023-10-10] MEDS: Lactated Ringers 1,000 ML 15 ML IV ×2 (10:15→13:29)
--- NOTE | 2023-10-10 10:22 | HP.PCM_ITS ---
History and Physical Date of Admission: 10/10/23 Intake Vital Signs 08/10/2407:44 09/03/2413:47 09/28/2409:13 09/28/2409:15 Height 5 ft 4 in 5 ft 4 in 5 ft 4 in 5 ft 4 in Weight: 138 lb BMI 23.6 BP 114/76 Intake Visit Reasons: diag. 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 Is patient in pain?: No Allergies No Known Allergies Allergy (Verified 09/29/23 10:13) Medications bupropion HCl 150 mg 24 hr tablet, extended release (Wellbutrin XL) 150 mg PO QAM 08/10/23 [History Confirmed 09/29/23] multivitamin 1 tab PO DAILY 09/29/23 [History Confirmed 09/29/23] Post menopausal: No Patient : No : No PFSH Medical History Anxiety Female infertility, unexplained History of echocardiogram (~2020) Non-smoker Seizures Wears contact lenses Surgical History (Updated 09/29/23 @ 10:18 by Bel Ramirez) History of exploratory laparotomy (~2016) History of wisdom tooth extraction (~2012) Social History household members: spouse and other current occupational status: unemployed history of recent travel: No sexually active: Yes Smoking Status: Never smoker alcohol intake: current alcohol intake frequency: a few times a month substance use type: does not use what type of physical activity do you participate in: weight training frequency: 3-4 times per week seatbelt use: always do you feel safe at home: Yes additional social history: - [facility] diag. lap possible fulguration/lysis adhesions Details: MANUEL YEPEZ is a 28 year old who presents for pre-operative evaluation for scheduled diagnostic laparoscopy, fulguration of endometriosis and lysis of adhesions for pelvic pain and deep dyspareunia. Ultrasound was normal and she declined to start GNRH agonist. She has had a diagnostic laparoscopy in 2017 that was normal but read that endometriosis can be slow growing and she wants to know if there is anything that could be different now compared to her surgery in 2017. History 0 Elective abortions Hx Para Spontaneous abortions Hx # Term Pregnancies Ectopic pregnancies Hx # Pregnancies Multiple births # of living children ROS Const ROS Unobtainable: All systems reviewed & are unremarkable except as noted in H Resp Resp: Reports system reviewed and no additional complaints, except as documented; Denies cough GI GI: Reports as per HPI Psych Psych: Reports system reviewed and no additional complaints, except as documented Exam Const General: cooperative, healthy appearing, comfortable and no acute distress Resp Effort & Inspection: normal respiratory effort Skin General: no rashes or lesions noted Psych Appearance: grossly normal Speech and Movement: speech and movement normal Coding Level of Care Code Off vis,est,level 4 Diagnoses Deep dyspareunia N94.12 Pelvic pain R10.2 Infertility management Z31.9 Assessment and Plan Assessment and Plan (1) Deep dyspareunia: Status: Acute (2) Pelvic pain: Status: Acute (3) Infertility management: Status: Acute Comment: letrozole X 3 cycles Plan After discussing the patient's diagnosis and treatment plan options, patient wishes to proceed with surgical management. I have discussed with the patient the risks, benefits, and alternatives of the procedure which include but are not limited to risks of anesthesia, bleeding, infection, possible damage to bowel, bladder, or surrounding vasculature which could lead to additional surgery to evaluate any complications. Patient agrees to procedure and wishes to proceed. ACOG/uptodate references given for additional information regarding procedure. may also mention chromopertubation at time of surgery.
[2023-10-10 11:04] LABS: Internal QC Validated? YES +Cl - CLEAR BKGD; Pregnancy, Urine Negative Negative
--- NOTE | 2023-10-10 11:42 | DCINST_ITS ---
Discharge Instructions Diet Discharge Diet: No restrictions Activity Discharge Activity: Return to Normal Activity, May Not Drive (for two weeks or while taking narcotic pain medications.), May Shower and May Take a Tub Bath (in 7 days) May resume sexual activity in: 1 week Weight Bearing Status: Full weight bearing Dressing / Incision Call your doctor if you observe: Using more than 1 pad per hour, Shortness of breath, Chest pain and Uncontrolled pain Suture Line Care: Avoid Pulling/Pushing and Avoid Pinching/Bending Remove Dressing in: 1 week (if present) Cleanse incision/area with: Soap & Water and Keep Dressing Clean & Dry Follow Up Care Please Follow Up With: Ann Collier DO When: Call to make an appointment with your doctor for a follow up incision check in 1-2 weeks. Test Results: Test results from this visit will be discussed in further detail at your follow- up appointment, if applicable. Discharge Plan Admission Primary Reason for Your Visit: diagnostic laparoscopy Attending Provider: Ann Collier Primary Care Provider: Care PhysicianGayatri Primary Discharge Orders/Prescriptions Prescriptions: New ibuprofen 800 mg tablet 800 mg PO Q8H PRN (Reason: pain) Qty: 30 0RF oxycodone-acetaminophen [Percocet] 5-325 mg tablet 1 tab PO Q4H PRN (Reason: pain) 3 Days Qty: 10 0RF Rx Instructions: 1-2 tabs q 4 hrs as needed for pain Continued bupropion HCl [Wellbutrin XL] 150 mg tablet extended release 24 hr 150 mg PO QAM multivitamin Tablet 1 tab PO DAILY Referrals / Follow Up: Care PhysicianGayatri Primary [Primary Care Provider] - Disposition Disposition (needs filled in before D/C Order can be placed): Home, Self Care
[2023-10-10] MEDS: Bupivacaine 0.25% 30 ML Vial (12:15)
[2023-10-10] MEDS: Methylene Blue 1% 100 MG/10 ML VIAL (12:20)
--- NOTE | 2023-10-10 12:54 | OP.PCM_ITS ---
Problems Associated Problem List Diagnoses (1) Deep dyspareunia: (2) Dysmenorrhea: (3) Pelvic pain: (4) Infertility management: Report of Operation Date of Procedure: 10/22/21 Pre-Operative Diagnosis: pelvic pain and infertility Post-Operative Diagnosis: pelvic pain and infertility Surgery/Procedure Performed:: diagnostic laparoscopy, fulguration of endometriosis, chromopertubation of fallopian tubes Surgeon: Ann Collier senior coldfusion developer: Shemar Zamora Type of Anesthesia: General Anesthesiologist: Prateek Fonseca Specimen's removed: none Drains: none Estimated Blood Loss (mL): 5cc Description of Procedure: Patient was taken in the operating room and was placed under general anesthesia was prepped and draped in normal sterile fashion in the dorsal lithotomy position. Bladder was drained of clear urine and SCDs were on preoperatively. Uterus was sounded and a uterine manipulator was placed after dilating. Attention was then paid to the abdominal portion of the procedure and the umbilicus was elevated and injected with Marcaine and after a 5 mm incision was made and a 5 mm trocar was inserted into the abdomen under direct visualization using the laparoscope. Abdomen was insufflated with CO2 gas and a 5 mm optical trocar was placed under direct visualization. A left lower quadrant 5 mm port was placed under direct visualization. Uterus was well visualized and bilateral fallopian tubes identified and bilateral tubes were elevated slightly while dilute methelen blue was inserted through the uterine manipulator. Both tubes were found to be patent as was evident with the blue dye spilling through. There was noted to be a small powder burn abdias on the left uterosacral ligament and also some small adhesions over the uterosacral ligament. on the underside of the uterus in the cul-de-sac was a small retraction area as a result of endometriosis also. All of these areas were cauterized using the bovie and the adhesions lifted. All instruments removed from the abdomen after gas was karthikeyan ufflated. Port sites were closed with 3-0 Monocryl Steri's and op sites were applied. All instruments removed from the vagina and patient was awoken and taken recovery in stable condition. Admit VTE Documentation VTE Present on Admission: Yes VTE Mechan Device Prophylaxis: SCD's VTE Pharm Prophylaxis ordered?: No Multi Select Codes Urinary/Genital Urinary/Genital CPT Codes: 57251 Laproscopic ablation endometriosis and Other Procedure See Report
== END 2023-10-10 14:18 | disposition home or self-care (01) ==
LOC: SDC 09:51 → AC 09:52
PROVIDERS: Referring Provider Obstetrics & Gynecology; Visit Provider Obstetrics & Gynecology
PROC: (CPT 49320; principal; 2023-10-10 10:55)
DX: N80.00 Endometriosis of the uterus, unspecified (principal); N97.9 Female infertility, unspecified; F41.9 Anxiety disorder, unspecified; Z79.899 Other long term (current) drug therapy
CPT/HCPCS: 58662; 00840; 81025; J7120; J2405

== ENCOUNTER → 2024-11-20 | Outpatient (CLI) | payer MEDICAID, SELFPAY ==
--- NOTE | 2024-11-20 08:50 | BI_ITS ---
EXAM: BREAST LIMITED UNILATERAL; DIAG MAMM W/CAD, BILAT; BILAT BRST MARTHA STAND ALONE 11/20/2024 CLINICAL HISTORY: 29-year-old female presents with left breast pain. No family history of breast cancer. TECHNIQUE: Bilateral Diagnostic digital breast tomosynthesis with 2D and 3D images. Computer aided detection. Also, targeted left breast ultrasound was performed. COMPARISON: Prior exam(s) dated mammogram and ultrasound 08/18/2023. FINDINGS: MAMMOGRAM: TISSUE DENSITY: The breast tissue is extremely dense which lowers the sensitivity of mammography. Left breast: There are no mammographic abnormalities in the area of patient's reported breast pain in the lateral left breast. Otherwise, there are no suspicious findings in the left breast. Right breast: There are no suspicious masses, grouped calcifications or architectural distortions in the right breast. ULTRASOUND: Left breast ultrasound performed in the area of patient's reported pain in the lower-outer left breast. On the present examination, there is a cyst at 3 o'clock 4 cm from the nipple measuring 0.7 x 0.6 x 0.5 cm and another cyst at 3 o'clock 6 cm from the nipple measuring 1.2 x 1.0 x 0.4 cm. Also, there is a hypoechoic mass with a probable hilum at 3 o'clock 2 cm from the nipple measuring 0.8 x 0.8 x 0.3 cm, this may represent a benign normal- appearing intramammary lymph node. Otherwise, there are no suspicious findings in the lower-outer left breast. BI/DIAG MAMM W/CAD, BILAT IMPRESSION: 1. In the area of patient's reported pain in the left breast there are 2 benig n cysts and a benign intramammary lymph node. Clinical management is recommended for the pain. 2. There is no evidence of malignancy in either breast. Right Breast: BIRADS 1 NEGATIVE. Left Breast: BIRADS 2 BENIGN FINDING. OVERALL FINAL ASSESSMENT: BIRADS 2 BENIGN FINDING. RECOMMENDATION: Routine annual follow-up in 1 Year A letter with findings and recommendations will be mailed to the patient. Reading Location: [id number]
--- NOTE | 2024-11-20 09:00 | BI_ITS ---
EXAM: BREAST LIMITED UNILATERAL; DIAG MAMM W/CAD, BILAT; BILAT BRST MARTHA STAND ALONE 11/20/2024 CLINICAL HISTORY: 29-year-old female presents with left breast pain. No family history of breast cancer. TECHNIQUE: Bilateral Diagnostic digital breast tomosynthesis with 2D and 3D images. Computer aided detection. Also, targeted left breast ultrasound was performed. COMPARISON: Prior exam(s) dated mammogram and ultrasound 08/18/2023. FINDINGS: MAMMOGRAM: TISSUE DENSITY: The breast tissue is extremely dense which lowers the sensitivity of mammography. Left breast: There are no mammographic abnormalities in the area of patient's reported breast pain in the lateral left breast. Otherwise, there are no suspicious findings in the left breast. Right breast: There are no suspicious masses, grouped calcifications or architectural distortions in the right breast. ULTRASOUND: Left breast ultrasound performed in the area of patient's reported pain in the lower-outer left breast. On the present examination, there is a cyst at 3 o'clock 4 cm from the nipple measuring 0.7 x 0.6 x 0.5 cm and another cyst at 3 o'clock 6 cm from the nipple measuring 1.2 x 1.0 x 0.4 cm. Also, there is a hypoechoic mass with a probable hilum at 3 o'clock 2 cm from the nipple measuring 0.8 x 0.8 x 0.3 cm, this may represent a benign normal- appearing intramammary lymph node. Otherwise, there are no suspicious findings in the lower-outer left breast. BI/Bilat Brst Martha Stand Alone IMPRESSION: 1. In the area of patient's reported pain in the left breast there are 2 benig n cysts and a benign intramammary lymph node. Clinical management is recommended for the pain. 2. There is no evidence of malignancy in either breast. Right Breast: BIRADS 1 NEGATIVE. Left Breast: BIRADS 2 BENIGN FINDING. OVERALL FINAL ASSESSMENT: BIRADS 2 BENIGN FINDING. RECOMMENDATION: Routine annual follow-up in 1 Year A letter with findings and recommendations will be mailed to the patient. Reading Location: [id number]
--- OUTSIDE RECORDS SUMMARY | 2024-11-20 10:11 | XMS RPT_ITS | CCD ---
Author Organization [facility] Care Team Providers Care Account Developer Name Role Phone COLÓN VAN Unavailable Unavailable VAN COLÓN Unavailable Unavailable PERKINSESA L Unavailable Unavailable Latrell ASSOCIATE ARTISTIC DIRECTOR.Yoly BRYSON Primary Care Provider Latrell ASSOCIATE ARTISTIC DIRECTOR.ADELAIDE Yoly L Primary Care Provider Latrell ASSOCIATE ARTISTIC DIRECTOR.ADELAIDE, Yoly L Primary Care Provider LATRELL YOLY [place] Primary Care Unavailable LATRELL, YOLY L Attending Unavailable LATRELL, YOLY L Attending Unavailable LATRELL, YOLY L Primary Care Unavailable LATRELL, YOLY L Attending Unavailable LATRELL, YOLY L Primary Care Unavailable MARE JACOBSEN C.N.P. Attending Unavaila ble YOLY FLOWERS Attending Unavailable Unavailable Primary Care Provider Unavailabl e Care Physician, No Primary Primary Care Provider Unavailable Care Physician, No Primary Referring Provider Un available Dr. Ann Collier Attending Provider [phone] Care Physician, No Primary Primary Care Provider Unavailable Care Physician, No Primary Referring Provider Un available Dr. Ann Collier Attending Provider [phone] Sebastian ASSOCIATE ARTISTIC DIRECTOR.Bing BRYSON Primary Care [facility] er Dr. Ann Collier Referring Provider [phone] Dr. Ann Collier Other Provider Sebastian ASSOCIATE ARTISTIC DIRECTOR.Bing BRYSON Primary Care [facility] er RATNA MAIER MD Attending Unavailable RATNA MAIER MD Primary Care Unavailable RATNA MAIER MD Primary Care Physician RATNA MAIER MD Primary Care Unavailable LIVIER BAÑUELOS, RATNA Attending Unavailable LIVIER BAÑUELOS, NERMINA Attending Unavailable LIVIER BAÑUELOS, RATNA Primary Care Unavailable LIVIER BAÑUELOS, NERCORY Attending Unavailable LIVIER BAÑUELOS, RATNA Primary Care Unavailable BING SMITH Primary Care Unavailable GUY, DERREK Attending Unavailable BING SMITH Primary Care Unavailable BING SMITH Attending Unavailable GUY, DERREK Attending Unavailable SELF Referring Unavailable BING SMITH Primary Care Unavailable GUY, DERREK Attending Unavailable BING SMITH Primary Care Unavailable Care Physician, No Primary Primary Care Unava ilable Care Physician, No Primary Referring Unava ilable Ann Collier Attending Unavailabl e Care Physician, No Primary Primary Care Unava ilable Care Physician, No Primary Referring Unava ilable Wallis METAL CLEANER, Alannah Attending Unavailable Care Physician, No Primary Primary Care Unava ilable Wallis METAL CLEANER, Alannah Attending Unavailable Arianne METAL CLEANER, Alannah Referring Unavailable Medications Current Medications Medication Drug Class(es) Dates Sig (Normalized) Sig (Original) acetaminophen 325 mg / oxyCODONE hydrochloride 5 mg oral tablet (1 source) Opioid Agonist Start: 10-10-2023 take 1-2 tablets by mouth every four hours as needed for pain Oxycodone-Acetami nophen (Percocet) 5-325 mg tablet Active 1 TABLET PO Q4H 10 October 10, 2023 1-2 tabs q 4 hrs as needed for pain amoxicillin 875 mg oral tablet (1 source) Penicillin-class Antibacterial Start: 06-16-2023 End: 06-26-2023 take 1 tablet by mouth twice daily amoxicillin (AMOXIL) 875 mg tablet Indications: Acute otitis media, right Take 1 tablet by mouth two times a day for 10 days. 20 tablet 0 06/16/2023 06/26/2023 Active Comment on above: Take 1 tablet by kimberli th two times a day for 10 days. amoxicillin 875 mg / clavulanate 125 mg oral tablet (1 source) Penicillin-class Antibacterial Start: 09-11-2024 End: 09-21-2024 take 1 tablet by mouth every twelve hours amoxicillin-clavu lanate potassium (AUGMENTIN) 875-125 mg per tablet Indications: Bacterial sinusitis Take 1 tablet by mouth every 12 hours for 10 days. 20 tablet 09/11/2024 09/21/2024 Active 24 hr buPROPion hydrochloride 150 mg extended release oral tablet (20 sources) Aminoketone Start: 02-23-2024 End: 02-17-2025 take 1 tablet by mouth every hour, then take 1 tablet by mouth every twenty-four hours Wellbutrin XL 150 mg/24 hours oral tablet, extended release Dose : 150 mg = 1 tab(s), Oral, q24h, # 90 tab(s), 3 Refill(s), Pharmacy: [facility]/pharmacy #[id number], 165, cm, 02/23/24 13:38:00 EDT, Height, kg, 02/23/24 13:38:00 EDT, Dosing Weight Start Date: 02/23/24 Stop Date: 02/17/25 Status: Ordered Quantity: 90.0 Unit: tab(s) Repeat number: 4 Start: 02-23-2024 End: 02-17-2025 buPROPion XL (WELLBUTRIN XL) 150 mg 24 hr tablet 150 mg. 02/23/2024 02/17/2025 Active Start: 02-23-2023 End: 01-04-2024 take 1 tablet by mouth once daily buPROPion XL (WELLBUTRIN XL) 150 mg 24 hr tablet take 1 tablet by mouth every day 90 tablet 01/04/2024 Active Comment on above: Take 1 tablet by kimberli th once daily. take 1 tablet by kimberli th every day cetirizine hydrochloride 10 mg oral tablet (2 sources) Histamine-1 Receptor Antagonist Start: 03-08-20 End: 10-05-19 Zyrtec 10 mg oral tablet Dose : 10 mg = 1 tab(s), Oral, qDay, # 30 tab(s), 6 Refill(s), Pharmacy: [facility]/pharmacy #[id number], 165, cm, 03/08/24 11:02:00 EDT, Height, kg, 03/08/24 11:02:00 EDT, Dosing Weight Start Date: 03/08/24 Stop Date: 10/04/24 Status: Ordered Quantity: 30.0 Unit: tab(s) Repeat number: 7 enteric contrast (will be provided with radiology test) (2 sources) Start: 12-06-19 End: 12-07-19 enteric contrast (will be provided with radiology test) For CT ABD W IVCON order Administer, As Directed One Time Only, via Oral, Rectal, both Oral and Rectal, Enteric Tube, Stoma or Indwelling Catheter, Enteric Contrast as designated per enteric contrast guidelines 1 Each 0 12/05/2022 12/06/2022 Active Comment on above: For CT ABD W IVCON o rder Administer, As Directed One Time Only, via Oral, Rectal, both Oral and Rectal, Enteric Tube, Stoma or Indwelling Catheter, Enteric Contrast as designated per enteric contrast guidelines fluticasone propionate 0.05 mg/actuat metered dose nasal spray (3 sources) Corticosteroid Start: 09-12-19 End: 09-19-19 take 1 spray(s) nasal route twice daily fluticasone (FLONASE) 50 mcg/actuation nasal spray Indications: Bacterial sinusitis Use 1 [place] in each nostril two times a day for 7 days. 18.2 mL 09/11/2024 09/18/2024 Active Start: 03-08-2024 End: 11-03-2024 take 100 ug nasal route once daily in the morning Flonase 50 mcg/inh nasal spray 100 mcg Dose = 2 spray(s), Nostril, each, qAM, # 1 EA, 6 Refill(s), Pharmacy: [facility]/pharmacy #[id number], 165, cm, 03/08/24 11:02:00 EDT, Height, kg, 03/08/24 11:02:00 EDT, Dosing Weight Start Date: 04/07/24 Stop Date: 11/03/24 Status: Ordered Quantity: 1.0 Unit: EA Repeat number: 7 ibuprofen 800 mg oral tablet (1 source) Nonsteroidal Anti-inflammatory Drug Start: 10-10-2023 take 800 mg by mouth every eight hours Ibuprofen Active 800 MG PO Q8H October 10, 2023 12:00am iv contrast (will be provided with radiology test) (16 sources) Start: 12-09-2022 iv contrast (will be provided with radiology [...] in the CT contrast administration guidelines link. 1 Each 12/09/2022 Active Start: 12-09-2022 iv contrast (w ill be provided with radiology test) CT ABD/PEL [...] in the CT contrast administration guidelines link. 1 Each 0 12/09/2022 Active Start: 12-05-2022 End: 12-06-2022 iv contrast (will be provide d with radiology test) CT ABD W -Inject, intravenously, once for 1 dose.No IV [...] in the CT contrast administration guidelines link. 1 Each 0 12/05/2022 12/06/2022 Active Comment on above: CT ABD W -Inject, in travenously, once for 1 dose.No IV access, insert [...] in the CT contrast administration guidelines link. CT ABD/PEL -Inject, intravenously, once for 1 [...] in the CT contrast administration guidelines link. Multivitamin preparation (8 sources) Start: 09-29-19 take 1 tablet by mouth once daily Multivitamin Active 1 TABLET PO DAILY September 29, 2023 12:00am Start: 02-16-2021 End: 10-11-2022 take 1 tablet by mouth once daily Multivitamin Discontinued 1 TABLET PO DAILY February 16, 2021 12:00am October 11, 2022 8:13am Start: 02-16-2021 End: 10-11-2022 take 1 tablet by mouth once daily Multivitamin Discontinued 1 TABLET PO DAILY February 15, 2021 11:00pm October 11, 2022 7:13am Start: 02-03-2017 take 1 tablet by kimberli th once daily Multivitamin Dose = 1 tab(s), Oral, Daily, 0 Refill(s) Start Date: 02/03/17 Status: Ordered Repeat number: 1 Start: 02-03-2017 take 1 tablet by kimberli th once daily Multivitamin Dose = 1 tab(s), Oral, Daily, 0 Refill(s) Start Date: 02/03/17 Status: Ordered tobramycin 3 mg/ml ophthalmic solution (1 source) Aminoglycoside Antibacterial Start: 08-06-2024 End: 08-13-2024 take 2 drop(s) into the eye(s) every four hours tobramycin (TOBREX) 0.3 % ophthalmic solution Indications: Acute bacterial conjunctivitis of left eye Use 2 Drops in both eyes every 4 hours for 7 days. 5 mL 1 08/06/2024 08/13/2024 Active Completed/Discontinued Medications Medication Drug Class(es) Dates Sig (Normalized) Sig (Original) [id number] 200 actuat albuterol 0.09 mg/actuat metered dose inhaler (7 sources) beta2-Adrenergic Agonist Start: 05-08-2020 End: 11-08-2021 take 2 puff(s) by inhalation every six hours as needed for wheezing albuterol HFA (PROVENTIL HFA, VENTOLIN HFA) 90 mcg/actuation inhaler Indications: Post-viral reactive airway disease Inhale 2 Puffs as instructed every 6 hours as needed for Wheezing/Shortness of Breath. 18 g 5 05/08/2020 11/08/2021 Discontinued (Other) Comment on above: Inhale 2 Puffs as in structed every 6 hours as needed for Wheezing/Shortness of Breath. escitalopram 10 mg oral tablet (20 sources) Serotonin Reuptake Inhibitor Start: 04-21-2023 End: 10-04-2023 take 1 tablet by mouth once daily escitalopram oxalate (LEXAPRO) 10 mg tablet take 1 tablet by mouth every day 90 tablet 1 04/21/2023 10/04/2023 Discontinued Start: 02-23-2023 End: 04-21-2023 escitalopram oxalate (LEXAPR O) 10 mg tablet Take 0.5 tablets by mouth once daily. For one week then stop 30 tablet 2 02/23/2023 04/21/2023 Discontinued Start: 01-12-2023 End: 02-23-2023 take 1 tablet by mouth once daily escitalopram oxalate (LEXAPRO) 10 mg tablet Take 1 tablet by mouth once daily. 30 tablet 2 01/12/2023 02/23/2023 Discontinued (Adjust Sig - Block E-Cancel) Start: 12-05-2022 take 1 tablet by kimberli th once daily escitalopram oxalate (LEXAPRO) 5 mg tablet Take 1 tablet by mouth once daily. 90 tablet 1 12/05/2022 Active Start: 02-16-2021 End: 12-05-2022 take 1 tablet by mouth once daily Escitalopram Oxalate (Lexapro) 10 mg tablet Discontinued 10 MG PO DAILY February 16, 2021 12:00am October 11, 2022 8:13am Comment on above: TAKE 1 TABLET BY KIMBERLI TH EVERY DAY Take 1 tablet by kimberli th once daily. Take 0.5 tablets by mouth once daily. For one week then stop fluconazole 150 mg oral tablet (1 source) Azole Antifungal Start: 2 End: 2 fluconazole (DIFLUCAN) 150 mg tablet Take 1 tablet by mouth one time only for 1 dose. May repeat dose in 72 hours if first dose not effective. 2 tablet 0 04/13/2022 04/13/2022 Comment on above: Take 1 tablet by kimberli th one time only for 1 dose. May repeat dose in 72 hours if first dose not effective. 60 actuat formoterol fumarate 0.005 mg/actuat / mometasone furoate 0.1 mg/actuat metered dose inhaler (7 sources) Corticosteroid, beta2-Adrenergic Agonist Start: End: 2 mometasone-formoterol (DULERA) 100-5 mcg/actuation inhaler Indications: Post-viral reactive airway disease Inhale 1 Puff as instructed twice daily. Rinse with water, gargle, and then expectorate after use. 1 Inhaler 11 07/29/2020 11/08/2021 Discontinued (Other) Comment on above: Inhale 1 Puff as ins tructed twice daily. Rinse with water, gargle, and then expectorate after use. letrozole 2.5 mg oral tablet (9 sources) Aromatase Inhibitor Start: 1 End: 3 take 1 tablet by mouth once daily Letrozole (Femara) 2.5 mg tablet Discontinued 2.5 MG PO DAILY March 22, 2021 2:56pm October 11, 2022 8:13am Take cycle days 3-7 Comment on above: Take by mouth. MULTI-VITAMIN ORAL (7 sources) End: 2 MULTI-VITAMIN ORAL Take by mouth. 0 11/08/2021 Discontinued (Other) MULTI-VITAMIN OR AL Take by mouth. 0 Active Comment on above: Take by mouth. perflutren lipid microspheres 1.3 mL in NaCl (PF) 0.9% 10 mL injection (DEFINITY) (12 sources) Start: 01-22-2021 End: 04-23-2022 perflutren lipid microspheres 1.3 mL in NaCl (PF) 0.9% 10 mL injection (DEFINITY) predniSONE 10 mg oral tablet (3 sources) Start: 03-08-2024 End: 03-14-2024 take 1 tablet by mouth once daily prednisone 10mg tab (TAPER) Taper 40-20-10 mg x 2 days each dose, Oral, Daily, # 14 tab(s), 0 Refill(s), Pharmacy: [facility]/pharmacy #[id number], 165, cm, 03/08/24 11:02:00 EDT, Height, kg, 03/08/24 11:02:00 EDT, Dosing Weight Start Date: 03/08/24 Stop Date: 03/14/24 Status: Ordered Quantity: 14.0 Unit: tab(s) Repeat number: 1 Start: 06-22-2023 End: 06-27-2023 take 2 tablets by mouth once daily predniSONE (DELTASONE) 20 mg tablet Indications: Eustachian tube dysfunction, right Take 2 tablets by mouth once daily for 5 days. 10 tablet 0 06/22/2023 06/27/2023 Active Comment on above: Take 2 tablets by mo [facility] once daily for 5 days. 125 ml sodium chloride 9 mg/ml prefilled syringe (12 sources) Start: 01-23-20 End: 04-23-20 sodium chloride 0.9 % (flush) 10 mL (BD POSIFLUSH) sulfamethoxazole 800 mg / trimethoprim 160 mg oral tablet (7 sources) Dihydrofolate Reductase Inhibitor Antibacterial, Sulfonamide Antimicrobial Start: 06-15-20 End: 11-09-19 take 1 tablet by mouth twice daily sulfamethoxazole-tr imethoprim (BACTRIM DS) 800-160 mg per tablet Indications: Acute cystitis without hematuria Take 1 tablet by mouth twice daily. 6 tablet 0 06/15/2021 11/08/2021 Discontinued (Other) Comment on above: Take 1 tablet by kimberli twice daily. Problems Active Problems Problem Classification Problem Date Documented Da te Episodic/Chronic Anxiety disorders (20 sources) Mixed anxiety and depressive disorder; Translations: [Anxiety disorder, unspecified] Onset: 01-13-2020 01-13-2020 Chronic Asthma (20 sources) Reactive airway disease; Translations: [Other asthma] Onset: 05-08-2020 05-08-2020 Chronic Bacterial infection; unspecified site (1 source) Other specified bacterial agents as the cause of diseases classified elsewhere; Translations: [Bacterial sinusitis] Onset: 09-11-2024 Episodic Contraceptive and procreative management (7 sources) Patient encounter status; Translations: [Encounter for procreative management, unspecified] 02-16-2021 Episodic Endometriosis (13 sources) Endometriosis (clinical); Translations: [Endometriosis, unspecified] Onset: 12-26-2016 06-27-2023 Chronic Genitourinary symptoms and ill-defined conditions (1 source) Dysuria; Translations: [Dysuria] Episodic Inflammation; infection of eye (except that caused by tuberculosis or sexually transmitteddisease) (2 sources) Acute infectious conjunctivitis; Translations: [Unspecified acute conjunctivitis, left eye] Onset: 08-06-2024 08-06-2024 Episodic Malaise and fatigue (2 sources) Other fatigue; Translations: [Other fatigue] Onset: 03-07-2024 Episodic Menstrual disorders (13 sources) Dysmenorrhea; Translations: [Dysmenorrhea, unspecified] Onset: 06-27-2023 06-27-2023 Chronic Mycoses (1 source) Candidiasis of vagina; Translations: [Vaginal yeast infection] Episodic Nonmalignant breast conditions (9 sources) Breast lump; Translations: [Unspecified lump in the left breast, unspecified quadrant] Onset: 11-20-2024 08-10-2023 Episodic Other connective tissue disease (1 source) Pain in right foot; Translations: [Pain in right foot] Episodic Other female genital disorders (4 sources) Deep pain on intercourse; Translations: [Deep dyspareunia] 08-10-2023 Chronic Other female genital disorders (7 sources) Deep dyspareunia; Translations: [Dyspareunia] 08-10-2023 Chronic Other gastrointestinal disorders (1 source) Abdominal bloating; Translations: [Abdominal distension (gaseous)] Episodic Other screening for suspected conditions (not mental disorders or infectious disease) (2 sources) Encounter for screening for lipoid disorders; Translations: [Encounter for screening for lipoid disorders] Onset: 03-07-2024 Episodic Other upper respiratory disease (1 source) Seasonal allergy; Translations: [Other seasonal allergic rhinitis] Chronic Other upper respiratory infections (2 sources) Bacterial sinusitis; Translations: [Chronic sinusitis, unspecified] Onset: 09-11-2024 09-11-2024 Chronic Otitis media and related conditions (5 sources) Dysfunction of right eustachian tube; Translations: [Unspecified Eustachian tube disorder, right ear] 07-16-2023 Episodic Residual codes; unclassified (1 source) History of laparoscopy; Translations: [Other specified postprocedural states] 10-10-2023 Episodic Unclassified (1 source) Unknown / UNK(Unknown) Onset: 12-26-2016 Unclassified (20 sources) NEGATIVE MEDICAL HISTORY 06-27-2018 Unclassified (1 source) APPOINTMENT CANCELLED Unclassified (2 sources) Contact lenses, device (physical object) 01-04-2017 Unclassified (2 sources) Otalgia of right ear 02-23-2024 Unclassified (2 sources) Patient encounter status 02-23-2024 Past or Other Problems Problem Classification Problem Date Documented Da te Episodic/Chronic Abdominal pain (20 sources) Right lower quadrant pain; Translations: [Right lower quadrant pain] Onset: 07-04-2022 Episodic Other and unspecified benign neoplasm (20 sources) Benign neoplasm of skin of face; Translations: [Melanocytic nevi of other parts of face] Onset: 01-09-2020 01-09-2020 Episodic Other ear and sense organ disorders (7 sources) Ear problem; Translations: [Unspecified disorder of ear, unspecified ear] Onset: 07-16-2023 08-21-2023 Episodic Other infections; including parasitic (20 sources) Personal history of other infectious and parasitic diseases; Translations: [History of 2019 novel coronavirus disease (COVID-19)] Onset: 05-08-2020 05-08-2020 Episodic Other lower respiratory disease (20 sources) Dyspnea on exertion; Translations: [Dyspnea, unspecified] Onset: 05-08-2020 07-24-2020 Episodic Other upper respiratory infections (2 sources) Pharyngitis; Translations: [Acute pharyngitis, unspecified] Onset: 03-07-2024 03-07-2024 Episodic Results Test Name Value Interpretation Reference Range Facility 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[employer] Office Visit Reporton 10-14-2024 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 Office Visit Report [facility], [address] [place] [address] OFFICE VISIT Date of Service: 10/14/24 MR#: [id number] Acct: [id number] Name: MANUEL MALDONADO Rep #: [id number] : 1995 Provider: EDGARDO hewitt Age/Sex: 29/F Location[place] [facility] [place] [facility] [place] Status: Signed Intake Vital Signs 08/21/24 09:06 10/14/24 13:58 Height 5 ft 4 in 5 ft 4 in Weight: 132 lb 8 oz BMI 22.7 BP 105/63 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: No Is patient in pain?: Yes (Left breast aching/throbbing) Allergies No Known Allergies Allergy (Verified 10/14/24 14:02) Medications ???Medication ???Instructions ???Recorded ???Confirmed ???Type bupropion HCl 150 mg 24 hr tablet, 150 mg PO QAM 08/10/23 10/14/24 History extended release (Wellbutrin XL) cholecalciferol (vitamin D3) 50 50 mcg PO QDAY 08/21/24 10/14/24 H istory mcg (2,000 unit) capsule Post menopausal: No Patient : No : No PFSH Medical History Wears contact lenses Anxiety Seizures Non-smoker History of echocardiogram ( 2020) Female infertility, unexplained Surgical History History of wisdom tooth extraction ( 2012) History of exploratory laparotomy ( 2016) Social History household members: spouse and other current occupational status: unemployed history of recent travel: No sexually active: Yes Smoking Status: Never smoker alcohol intake: current alcohol intake frequency: a few times a month substance use type: does not use caffeine: Yes what type of physical activity do you participate in: running and weight training frequency: 3-4 times per week seatbelt use: always do you feel safe at home: Yes additional social history: - Vimal HPI Breast Pain Details: MANUEL MALDONADO is a 29 year old who presents for left breast pain since prior to LMP 2 weeks ago. Breast also have tenderness prior to menses but this has persisted and breast feels achy and throbbing. History 0 Elective abortions Hx Para Spontaneous abortions Hx # Term Pregnancies Ectopic pregnancies Hx # Pregnancies Multiple births # of living children ROS Const Constitutional: Reports system reviewed and no additional complaints, except as documented : Reports system reviewed and no additional complaints, except as documented Skin Skin/Breast: Reports as per HPI Psych Psych: Reports system reviewed and no additional complaints, except as documented Exam Const General: cooperative and no acute distress Orientation: oriented x3 HENMT Head: normal to inspection Neck Neck: normal visual inspection Chest Breast inspection: normal inspection of the breasts and normal inspection of the axillae Breast palpation: normal palpation of the breasts, normal palpation of the axillae and other (states tenderness outer lateral left breast) Resp Effort Inspection: normal respiratory effort Coding Level of Care Code Off vis,est,level 3 Diagnoses Mastodynia of left breast N64.4 Assessment and Plan Assessment and Plan (1) Mastodynia of left breast: Status: Acute Comment: Will proceed w/imaging if persists after next menses Orders: Orders DIAG MAMM W/CAD, BILAT Today N64.4 - Mastodynia Breast Limited Unilateral Today N64.4 - Mastodynia Plan Decrease caffeine Patient will wait for next menses and if pain continues she will then proceed with imaging RTO prn, annual 10/14/24 1420 Date Alannah Acuña NP METAL CLEANER-C Cosigner Signature: Date (if applicable) [facility] Visit (UCUPNO ) MANUEL MALDONADO ([id number]) 1995 F Date Time Provider Department 09/11/24 8:30 AM DERREK OLIVARES During your visit today, we recorded the following information about you: Temperature Pulse Respiration Blood pressure 98.8 degrees 65/minute 18/minute 115/74 Weight Last Period 59.7 kg 09/07/24 Derrek Olivares, VIPIN.FIRE LIEUTENANT 09/11/2024 8:51 AM Signed Pt will follow up with PCP if not better in 2-3 days or go to emergency department if worsening condition I would use the Flonase for 2 days I would use the Flonase for 2 days and then if you do not notice a difference you could start the antibiotic at that time. SINUSITIS: You have sinusitis, an infection of the sinus cavities around the nose. This infection usually follows a respiratory illness; it can also be related to allergies, changes in atmospheric pressure (flying, diving), or anything that blocks nasal drainage. Symptoms include: headache, facial pain, a thick nasal discharge, congestion, and cough. The treatment includes antibiotic therapy, increasing oral fluids, and pain medication if needed. Nose spray decongestants (Afrin, Fady-Synephrine) and oral decongestants may be needed to reduce congestion and drainage. Rarely the sinus must be irrigated to remove the infected material. Sinusitis can lead to serious complications by spreading to other areas such as the eye or brain. Please call your doctor or return here right away if you have any of the following more serious symptoms: Unusual swelling around the eye or trouble seeing. Increasing pain, severe headache, or toothache. Nausea, vomiting, or unusual drowsiness. Derrek Olivares APRN.FIRE LIEUTENANT 09/11/2024 8:53 AM Signed September 11, 2024 HPI: Manuel Maldonado is a 29 year old female who presents today for cough and sinus drainage and congestion x 8 days. Patient states the sinus congestion is getting somewhat worse. PAST MEDICAL HISTORY Diagnosis Date Anxiety COVID-19 10/10/2019 Depression NEGATIVE MEDICAL HISTORY PAST SURGICAL HISTORY Procedure Laterality Date OTHER exploratory laparoscopy 2018 OTHER Excision of nose - mole FAMILY HISTORY Problem Relation Age of Onset Asthma Father Thyroid Brother Schizophrenia Brother Paranoid behavior Brother other (Bone Disease) Brother Social History Tobacco Use Smoking status: Never Smokeless tobacco: Never Vaping Use Vaping status: Never Used Substance Use Topics Alcohol use: Yes Drug use: No ALLERGIES No Known Allergies Immunization History Administered Date(s) Administered COVID-19 original vaccine, age 12+ yr, monovalent ([employer] - PURPLE TOP) 09/04/2020 09/27/2020 tetanus diphtheria pertussis (Tdap) vaccine, age 7+ yr (ADACEL, BOOSTRIX) 04/25/2018 tuberculin skin test (TST-PPD), purified protein derivative, intradermal 01/13/2020 Current Medications: buPROPion XL (WELLBUTRIN XL) 150 mg 24 hr tablet 150 mg. fluticasone (FLONASE) 50 mcg/actuation nasal spray Use 1 [place] in each nostril two times a day for 7 days. amoxicillin-clavulanat e potassium (AUGMENTIN) 875-125 mg per tablet Take 1 tablet by mouth every 12 hours for 10 days. buPROPion XL (WELLBUTRIN XL) 150 mg 24 hr tablet take 1 tablet by mouth every day (Patient not taking: Reported on 09/11/2024) iv contrast (will be provided with radiology [...] guidelines link. (Patient not taking: Reported on 03/07/2024) Review of Systems Constitutional: Negative for chills and fever. HENT: Positive for congestion and sinus pain. Negative for ear pain and sore throat. Eyes: Negative for redness. Respiratory: Positive for cough. Negative for shortness of breath. Cardiovascular: Negative for chest pain. Gastrointestinal: Negative for abdominal pain, diarrhea, nausea and vomiting. Genitourinary: Negative. Musculoskeletal: Negative for myalgias. Skin: Negative for rash. All other systems reviewed and are negative. Objective BP 115/74 Pulse 65 Temp 98.8 Resp 18 Wt 131 lb 9.8 oz (59.7kg) SpO2 100% LMP 09/07/2024 Physical Exam Constitutional: General: She is not in acute distress. Appearance: Normal appearance. She is not ill-appearing or toxic-appearing. HENT: Head: Normocephalic and atraumatic. Right Ear: Tympanic membrane normal. Left Ear: Tympanic membrane normal. Nose: Congestion present. Mouth/Throat: Mouth: Mucous membranes are moist. (more content not included)... Normal [facility] 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er Office Visit Reporton 08-21-2024 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er Office Visit Report [facility] [address], [address] [place] [address] OFFICE VISIT Date of Service: 08/21/24 MR#: [id number] Acct: [id number] Name: MANUEL MALDONADO Rep #: [id number] : 1995 Provider: Dr. 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 Is patient in pain?: No Allergies No Known Allergies Allergy (Verified 08/21/24 09:04) Medications ???Medication ???Instructions ???Recorded ???Confirmed ???Type bupropion HCl 150 mg 24 hr tablet, 150 mg PO QAM 08/10/23 08/21/24 History extended release (Wellbutrin XL) cholecalciferol (vitamin D3) 50 50 mcg PO QDAY 08/21/24 08/21/24 H istory mcg (2,000 unit) capsule Post menopausal: No Patient : No : No PFSH Medical History Wears contact lenses Anxiety Seizures Non-smoker History of echocardiogram ( 2020) Female infertility, unexplained Surgical History History of wisdom tooth extraction ( 2012) History of exploratory laparotomy ( 2016) Social History (Updated 08/21/24 @ 09:08 by Bel Ramirez) household members: spouse and other current occupational status: unemployed history of recent travel: No sexually active: Yes Smoking Status: Never smoker alcohol intake: current alcohol intake frequency: a few times a month substance use type: does not use caffeine: Yes what type of physical activity do you participate in: running and weight training frequency: 3-4 times per week seatbelt use: always do you feel safe at home: Yes additional social history: - Vimal History 0 Elective abortions Hx Para Spontaneous abortions Hx # Term Pregnancies Ectopic pregnancies Hx # Pregnancies Multiple births # of living children HPI Encounter for routine gynecological examination Details: MANUEL MALDONADO is a 29 year old who presents for annual exam. Last PAP: 08/10/23 History of abnormal PAP: no Last mammogram: n/a History of abnormal mammogram: no Colon cancer screening: start age 45 Other preventative health care screenings: followed by pcp. Female Reproductive History Cycle Length: 21-35 Bleeding Duration: 5 Questions: metorrhagia: No, sexually active: Yes, dyspareunia: No and PCB: No Menopausal Symptoms: No hot flashes, No night sweats, No weight change, No mood changes, No difficulty concentrating, No sleep problems and No change in libido ROS Const Constitutional: Reports as per HPI; Denies fatigue, increased appetite, poor appetite, night sweats, weight gain or weight loss Cardio Card: Denies chest pain Resp Resp: Denies cough or dyspnea GI GI: Reports as per HPI; Denies abdominal pain, bloating, constipation, nausea or vomiting : Reports as per HPI and other; Denies difficulty voiding, dysuria, hematuria, hot flashes, nipple discharge, pelvic pain, prolapse symptoms, urinary frequency, urinary incontinence, urinary urgency, vaginal discharge, vaginal dryness, vaginal odor or vaginal pruritus Skin Skin/Breast: Denies changing lesions, breast mass, breast pain, breast skin changes or nipple discharge Psych Psych: Denies anxiety, change in libido, depression or difficulty concentrating Exam Const General: cooperative, healthy appearing, comfortable, no acute distress, well developed and well groomed [facility] Head: normal to inspection and normocephalic Ears: hearing grossly normal bilaterally and external ears normal Nose: external nose normal Face and sinus: normal facial exam Neck Neck: normal visual inspection, full ROM and no lymphadenopathy Thyroid: thyroid normal Chest Chest palpation inspection: normal inspection of the chest Breast inspection: normal inspection of the breasts and normal inspection of the axillae Breast palpation: normal palpation of the breasts, normal palpation of the axillae and no axillary lymphadenopathy Resp Effort Inspection: normal respiratory effort GI Inspection: normal to inspection and non-distended Palpation: soft, no hepatosplenomegaly and no guarding General: bladder normal to palpation External Female Exam: normal external appearance, normal appearance of the urethra and no lesions Urethra: normal appearance of the urethra and normal palpation Speculum Exam - Vagina: normal appearance of the vagina and normal vaginal discharge Speculum Exam - Cervix: normal appearance of the cervix, no cervical discharge, no lesions and nontender [place] (more content not included)... Normal [facility] .Auto Diffon 08-06-2024 Basophil, Absolute 0.1 10 3/mcL Normal 0.0-0.3 [facility] Comment on above: Performed By: #### C HARRIS COBB ANEU #### [address] [address] Basophils/100 WBC (Bld) 1.2 % Normal 0.0-2.5 [facility] Comment on above: Performed By: #### C HARRIS COBB, ANEU #### [facility] [address] [place] [address] Eosinophil, Absolute 0.1 10 3/mcL Normal 0.0-0.7 [facility] Comment on above: Performed By: #### C HARRIS COBB, ANEU #### [address] [address] Eosinophils/100 WBC (Bld) 1.5 % Normal 0.0-6.0 [facility] Comment on above: Performed By: #### C HARRIS COBB, ANEU #### [address] [address] Lymphocyte, Absolute 1.5 10 3/mcL Normal 0.9-4.3 [facility] Comment on above: Performed By: #### C HARRIS COBB, ANEU #### [address] [address] Lymphocytes/100 WBC (Bld) 35.0 % Normal 20.0-40.0 [facility] Comment on above: Performed By: #### C HARRIS COBB, ANEU #### [address] [address] Monocyte, Absolute 0.4 10 3/mcL Normal 0.1-1.4 [facility] Comment on above: Performed By: #### C HARRIS COBB, ANEU #### [address] [address] Monocytes/100 WBC (Bld) 9.7 % Normal 2.0-13.0 [facility] Comment on above: Performed By: #### C HARRIS COBB, ANEU #### [address] [address] Neutrophils/100 WBC (Bld) 52.6 % Normal 50.0-75.0 [facility] Comment on above: Performed By: #### C HARRIS COBB, ANEU #### [address] [address] .NEUABSon 08-06-2024 Neutrophil, Absolute 2.2 10 3/mcL Low 2.3-8.1 [facility] Comment on above: Performed By: #### C HARRIS COBB, ANEU #### [address] [address] CBCon 08-06-2024 Erythrocyte distribution width (RBC) [Ratio] 12.5 % Normal 11.5-15.5 [facility] Comment on above: Performed By: #### C HARRIS COBB, ANEU #### [place] [address] Hematocrit (Bld) [Volume fraction] 40.9 % Normal 34.0-46.0 [facility] Comment on above: Performed By: #### C HARRIS COBB, ANEU #### [place] [address] Hgb 14.1 G/dL Normal 12.0-16.0 [facility] Comment on above: Performed By: #### C HARRIS COBB, ANEU #### [place] [address] MCH (RBC) [Entitic mass] 29.4 pg Normal 27.0-33.0 [facility] Comment on above: Performed By: #### C HARRIS COBB, ANEU #### [place] [address] MCHC 34.4 G/dL Normal 32.0-36.0 [facility] Comment on above: Performed By: #### C HARRIS COBB, ANEU #### [place] [address] MCV (RBC) [Entitic vol] 85.4 fL Normal 80.0-99.0 [facility] Comment on above: Performed By: #### HARRIS TORIBIO, ANEU #### [place] [id number] Platelet 216 10 3/mcL Normal 150-450 [facility] Comment on above: Performed By: #### HARRIS TORIBIO, ANEU #### [place] [address] Platelet mean volume (Bld) [Entitic vol] 7.2 fL Normal 6.6-10.5 [facility] Comment on above: Performed By: #### C HARRIS COBB ANEU #### [facility] [address] [place] [address] RBC 4.78 10 6/mcL Normal 4.10-5.30 [facility] Comment on above: Performed By: #### C HARRIS COBB ANEU #### [facility] [address] [place] [address] WBC 4.2 10 3/mcL Low 4.5-10.8 [facility] Comment on above: Performed By: #### C HARRIS COBB ANEU #### [facility] [address] [place] [id number] CNOVon 08-06-2024 CNOV Office Visit (UPNO ) MANUEL MALDONADO ([id number]) 1995 F Date Time Provider Department 08/06/24 1:15 PM DERREK OLIVARES JUSTINE During your visit today, we recorded the following information about you: Temperature Pulse Respiration Blood pressure 98.7 degrees 78/minute 12/minute 112/69 Weight Last Period 59 kg 07/23/24 Derrek Olivares APRN.[employer] LIE[employer]NT 08/06/2024 1:32 PM Signed August 06, 2024 HPI: Manuelshashi Maldonado is a 29 year old female who presents today for left eye redness that started today. She does wear contacts but has them out and will dispose of them. She has not had any URI symptoms. PAST MEDICAL HISTORY Diagnosis Date Anxiety COVID-19 10/10/2019 Depression NEGATIVE MEDICAL HISTORY PAST SURGICAL HISTORY Procedure Laterality Date OTHER exploratory laparoscopy 2017 OTHER Excision of nose - mole FAMILY HISTORY Problem Relation Age of Onset Asthma Father Thyroid Brother Schizophrenia Brother Paranoid behavior Brother other (Bone Disease) Brother Social History Tobacco Use Smoking status: Never Smokeless tobacco: Never Vaping Use Vaping status: Never Used Substance Use Topics Alcohol use: Yes Drug use: No ALLERGIES No Known Allergies Immunization History Administered Date(s) Administered COVID-19 original vaccine, age 12+ yr, monovalent ([employer] - PURPLE TOP) 09/04/2020 09/27/2020 tetanus diphtheria pertussis (Tdap) vaccine, age 7+ yr (ADACEL, BOOSTRIX) 04/25/2018 tuberculin skin test (TST-PPD), purified protein derivative, intradermal 01/13/2020 Current Medications: buPROPion XL (WELLBUTRIN XL) 150 mg 24 hr tablet take 1 tablet by mouth every day iv contrast (will be provided with radiology [...] guidelines link. (Patient not taking: Reported on 03/07/2024) Review of Systems Constitutional: Negative for chills and fever. HENT: Negative for congestion, ear pain and sore throat. Eyes: Positive for redness. Negative for discharge. Respiratory: Negative for cough and shortness of breath. Cardiovascular: Negative for chest pain. Gastrointestinal: Negative for abdominal pain, diarrhea, nausea and vomiting. Genitourinary: Negative. Musculoskeletal: Negative for myalgias. Skin: Negative for rash. All other systems reviewed and are negative. Objective BP 112/69 Pulse 78 Temp 98.7 Resp 12 Wt 130 lb 1.1 oz (59.0kg) SpO2 100% LMP 07/23/2024 Physical Exam Constitutional: General: She is not in acute distress. Appearance: She is not toxic-appearing. HENT: Head: Normocephalic and atraumatic. Right Ear: Tympanic membrane normal. Left Ear: Tympanic membrane normal. Nose: No congestion. Mouth/Throat: Mouth: Mucous membranes are moist. Pharynx: No posterior oropharyngeal erythema. Eyes: Conjunctiva/sclera: Right eye: Right conjunctiva is not injected. No exudate. Left eye: Left conjunctiva is injected. No exudate. Cardiovascular: Rate and Rhythm: Normal rate. Pulmonary: Effort: Pulmonary effort is normal. Skin: General: Skin is warm and dry. Capillary Refill: Capillary refill takes less than 2 seconds. Neurological: Mental Status: She is alert and oriented to person, place, and time. Medical Decision Making: Problems: Low: Acute, uncomplicated illness or injury Data: Unique source(s) for external note(s) reviewed: 1 Risk: Moderate: Moderate risk from testing/treatment and Drug management Medical Decision Making Level: 3 - Low ASSESSMENT/PLAN: 1. Acute bacterial conjunctivitis of left eye - ICD9: 372.03, ICD10: H10.32 Bacterial - see medication orders - course and contagiousness issues discussed, including hand washing. - Instructed to call if high fever, development of periorbital redness or swelling, eye pain, visual changes, concerns or if symptoms persist. - TOBRAMYCIN 0.3 % EYE DROPS Derrek Olivares APRN.[employer] LIEUTENANT The above reflects my independent exam and review of the patient's medical record. I saw and examined the patient myself personally. Parts of the HPI, ROS, exam, impression/plan, and testing results may have been copied from the current or previous clinical notes and remain pertinent to today's visit. Current changes have been made and documented today. Voice recognition device used, may be minor grammar or spelling errors. Derrek Olivares APRN.[employer]NT 08/06/2024 1:30 PM Signed Pt will follow up with PCP if not better in 2-3 days or (more content not included)... Normal [facility] LABORATORYOrdered By: SYSTEM SYSTEM on 08-06-2024 Basophils (Bld) [#/Vol] 0.1 103/mcL Normal 0.0 - 0.3 10^3/mcL AH Workflow SS Basophils/100 WBC (Bld) 1.2 % Normal 0.0 - 2.5 % Workflow SS Eosinophils (Bld) [#/Vol] 0.1 103/mcL Normal 0.0 - 0.7 10^3/mcL AH Workflow SS Eosinophils/100 WBC (Bld) 1.5 % Normal 0.0 - 6.0 % AH Workflow SS Erythrocyte distribution width (RBC) [Ratio] 12.5 % Normal 11.5 - 15.5 % Workflow SS Hematocrit (Bld) [Volume fraction] 40.9 % Normal 34.0 - 46.0 % AH Workflow SS Hemoglobin (Bld) [Mass/Vol] 14.1 G/dL Normal 12.0 - 16.0 G/dL AH Workflow SS Lymphocytes (Bld) [#/Vol] 1.5 103/mcL Normal 0.9 - 4.3 10^3/mcL Workflow SS Lymphocytes/100 WBC (Bld) 35.0 % Normal 20.0 - 40.0 % AH Workflow SS MCH (RBC) [Entitic mass] 29.4 pg Normal 27.0 - 33.0 pg AH Workflow SS MCHC 34.4 G/dL Normal 32.0 - 36.0 G/dL Workflow SS MCV (RBC) [Entitic vol] 85.4 fL Normal 80.0 - 99.0 fL AH Workflow SS Monocytes (Bld) [#/Vol] 0.4 103/mcL Normal 0.1 - 1.4 10^3/mcL Workflow SS Monocytes/100 WBC (Bld) 9.7 % Normal 2.0 - 13.0 % AH Workflow SS Neutrophils (Bld) [#/Vol] 2.2 103/mcL Low 2.3 - 8.1 10^3/mcL Workflow SS Neutrophils/100 WBC (Bld) 52.6 % Normal 50.0 - 75.0 % Workflow SS Platelet mean volume (Bld) [Entitic vol] 7.2 fL Normal 6.6 - 10.5 fL Workflow SS Platelets (Bld) [#/Vol] 216 103/mcL Normal 150 - 450 10^3/mcL Workflow SS RBC (Bld) [#/Vol] 4.78 106/mcL Normal 4.10 - 5.3 0 10^6/mcL Workflow SS WBC (Bld) [#/Vol] 4.2 103/mcL Low 4.5 - 10.8 10^3/mcL Workflow SS CT ABDOMEN/PELVIS W/CONTRAST on 03-11-2024 CT ABDOMEN/PELVIS W/CONTRAST ORIGINAL EXAMINATION: CT OF THE ABDOMEN AND PELVIS WITH CONTRAST 03/11/2024 9:18 am TECHNIQUE: CT of the abdomen and pelvis was performed with the administration of intravenous contrast. Multiplanar reformatted images are provided for review. Automated exposure control, iterative reconstruction, and/or weight based adjustment of the mA/kV was utilized to reduce the radiation dose to as low as reasonably achievable. COMPARISON: 10/20/2006 HISTORY: ORDERING SYSTEM PROVIDED HISTORY: Reason for Exam: chronic right lower quadrant pain chronic right lower quadrant pain. NO H/O CA FINDINGS: Lung bases are unremarkable. No focal hepatic or splenic lesion. The adrenal glands and pancreas are unremarkable. The gallbladder demonstrates no filling defects. Symmetric nephrograms. The bladder is unremarkable. No dilated loops of small bowel. Normal appendix. The colon demonstrates no acute abnormality. Nonaneurysmal abdominal aorta. Tampon is seen within the vagina. No adnexal mass. No enlarged lymph nodes are identified. No free intraperitoneal fluid or air. Scattered phleboliths. No acute osseous abnormality. IMPRESSION: No acute process or findings to explain patient's symptoms. Normal appendix. I have personally reviewed the images of this examination and agree with the resident's findings and interpretations. Interpreted by: Maury Moran Preliminary Report By: Rios Roper Electronically signed By Maury Moran Dictated Date: 03/11/2024 12:13:00 PM Prelim Date: 03/11/2024 1:07:17 PM Sign Date: 03/11/2024 1:07:17 PM Ordering Provider: RATNA Munoz [facility] .Auto Diffon 03-07-2024 Basophil, Absolute 0.1 10 3/mcL Normal 0.0-0.2 [facility] Comment on above: Performed By: #### G FR, TSH, CBC, ANEU, CMP, ADIFF, LIPID #### [address] [address] Basophils/100 WBC (Bld) 0.9 % Normal 0.0-2.5 [facility] Comment on above: Performed By: #### G FR, TSH, CBC, ANEU, CMP, ADIFF, LIPID #### [address] [address] Eosinophil, Absolute 0.0 10 3/mcL Normal 0.0-0.4 [facility] Comment on above: Performed By: #### G FR, TSH, CBC, ANEU, CMP, ADIFF, LIPID #### [address] [address] Eosinophils/100 WBC (Bld) 0.6 % Normal 0.0-7.0 [facility] Comment on above: Performed By: #### G FR, TSH, CBC, ANEU, CMP, ADIFF, LIPID #### [address] [address] Lymphocyte, Absolute 2.6 10 3/mcL Normal 0.8-3.9 [facility] Comment on above: Performed By: #### G FR, TSH, CBC, ANEU, CMP, ADIFF, LIPID #### [address] [address] Lymphocytes/100 WBC (Bld) 46.2 % Normal 10.0-50.0 [facility] Comment on above: Performed By: #### G FR, TSH, CBC, ANEU, CMP, ADIFF, LIPID #### [address] [address] Monocyte, Absolute 0.5 10 3/mcL Normal 0.2-1.0 [facility] Comment on above: Performed By: #### G FR, TSH, CBC, ANEU, CMP, ADIFF, LIPID #### [address] [address] Monocytes/100 WBC (Bld) 9.0 % Normal 1.7-13.0 [facility] Comment on above: Performed By: #### G FR, TSH, CBC, ANEU, CMP, ADIFF, LIPID #### [address] [address] Neutrophils/100 WBC (Bld) 43.3 % Normal 37.0-80.0 [facility] Comment on above: Performed By: #### G FR, TSH, CBC, ANEU, CMP, ADIFF, LIPID #### [address] [address] .GFRon 03-07-2024 GFR 85 ml/min/1.73sqm Normal [facility] Comment on above: Result Comment: GFR Population mean for , Non- Americans Ages 20-29 = 116 mL/min/1.73 sq.m. Ages 30-39 = 107 mL/min/1.73 sq.m. Ages 40-49 = 99 mL/min/1.73 sq.m. Ages 50-59 = 93 mL/min/1.73 sq.m. Ages 60-69 = 85 mL/min/1.73 sq.m. Ages 70+ = 75 mL/min/1.73 sq.m. Chronic Kidney Disease: Less than 60 mL/min/1.73 square meters End Stage Renal Disease: Less than 15 mL/min/1.73 square meters Performed By: #### G FR, TSH, CBC, ANEU, CMP, ADIFF, LIPID #### [address] [address] GFR Non- 70 ml/min/1.73sqm Normal [facility] Comment on above: Result Comment: GFR Population mean for , Non- Americans Ages 20-29 = 116 mL/min/1.73 sq.m. Ages 30-39 = 107 mL/min/1.73 sq.m. Ages 40-49 = 99 mL/min/1.73 sq.m. Ages 50-59 = 93 mL/min/1.73 sq.m. Ages 60-69 = 85 mL/min/1.73 sq.m. Ages 70+ = 75 mL/min/1.73 sq.m. Chronic Kidney Disease: Less than 60 mL/min/1.73 square meters End Stage Renal Disease: Less than 15 mL/min/1.73 square meters Performed By: #### G FR, TSH, CBC, ANEU, CMP, ADIFF, LIPID #### [address] [address] .NEUABSon 03-07-2024 Neutrophil, Absolute 2.4 10 3/mcL Low 2.9-6.2 [facility] Comment on above: Performed By: #### G FR, TSH, CBC, ANEU, CMP, ADIFF, LIPID #### [place] [id number] [place], [place] [address] CBCon 03-07-2024 Erythrocyte distribution width (RBC) [Ratio] 12.3 % Normal 11.5-14.5 [facility] Comment on above: Performed By: #### G FR, TSH, CBC, ANEU, CMP, ADIFF, LIPID #### [address] [address] Hematocrit (Bld) [Volume fraction] 39.2 % Normal 37.0-47.0 [facility] Comment on above: Performed By: #### G FR, TSH, CBC, ANEU, CMP, ADIFF, LIPID #### [address] [address] Hgb 13.4 G/dL Normal 12.0-16.0 [facility] Comment on above: Performed By: #### G FR, TSH, CBC, ANEU, CMP, ADIFF, LIPID #### [address] [address] MCH (RBC) [Entitic mass] 29.8 pg Normal 27.0-31.2 [facility] Comment on above: Performed By: #### G FR, TSH, CBC, ANEU, CMP, ADIFF, LIPID #### [address] [address] MCHC 34.3 G/dL Normal 33.0-37.0 [facility] Comment on above: Performed By: #### G FR, TSH, CBC, ANEU, CMP, ADIFF, LIPID #### [address] [address] MCV (RBC) [Entitic vol] 87.1 fL Normal 80.0-94.0 [facility] Comment on above: Performed By: #### G FR, TSH, CBC, ANEU, CMP, ADIFF, LIPID #### [address] [address] Platelet 193 10 3/mcL Normal 130-400 [facility] Comment on above: Performed By: #### G FR, TSH, CBC, ANEU, CMP, ADIFF, LIPID #### [address] [address] Platelet mean volume (Bld) [Entitic vol] 7.9 fL Normal 7.4-10.4 [facility] Comment on above: Performed By: #### G FR, TSH, CBC, ANEU, CMP, ADIFF, LIPID #### [address] [address] RBC 4.50 10 6/mcL Normal 4.20-5.40 [facility] Comment on above: Performed By: #### G FR, TSH, CBC, ANEU, CMP, ADIFF, LIPID #### [address] [address] WBC 5.5 10 3/mcL Normal 4.6-10.8 [facility] Comment on above: Performed By: #### G FR, TSH, CBC, ANEU, CMP, ADIFF, LIPID #### [address] [address] CMPon 03-07-2024 Albumin Level 4.1 G/dL Normal 3.5-5.0 [facility] Comment on above: Performed By: #### G FR, TSH, CBC, ANEU, CMP, ADIFF, LIPID #### [address] [address] Albumin/Globulin [Mass ratio] 1.4 {ratio} Normal 1.1-2.5 [facility] Comment on above: Performed By: #### G FR, TSH, CBC, ANEU, CMP, ADIFF, LIPID #### [address] [address] ALP [Catalytic activity/Vol] 60 U/L Normal 40-135 [facility] Comment on above: Performed By: #### G FR, TSH, CBC, ANEU, CMP, ADIFF, LIPID #### [address] [address] ALT [Catalytic activity/Vol] 14 U/L Normal 14-59 [facility] Comment on above: Performed By: #### G FR, TSH, CBC, ANEU, CMP, ADIFF, LIPID #### [address] [address] AST [Catalytic activity/Vol] 10 U/L Normal 10-40 [facility] Comment on above: Performed By: #### G FR, TSH, CBC, ANEU, CMP, ADIFF, LIPID #### [address] [address] Bili Total 0.4 mg/dL Normal 0.2-1.0 [facility] Comment on above: Result Comment: Use of this assay is not recommended for patients undergoing treatment with eltrombopag due to the potential for falsely elevated results. Performed By: #### G FR, TSH, CBC, ANEU, CMP, ADIFF, LIPID #### [address] [address] BUN/Creatinine Ratio 16 ratio Normal 7-27 [facility] Comment on above: Performed By: #### G FR, TSH, CBC, ANEU, CMP, ADIFF, LIPID #### [address] [address] Calcium [Mass/Vol] 8.9 mg/dL Normal 8.4-10.2 [facility] Comment on above: Performed By: #### G FR, TSH, CBC, ANEU, CMP, ADIFF, LIPID #### [address] [address] Chloride [Moles/Vol] 105 mmol/L Normal 98-107 [facility] Comment on above: Performed By: #### G FR, TSH, CBC, ANEU, CMP, ADIFF, LIPID #### [address] [address] CO2 [Moles/Vol] 26 mmol/L Normal 22-29 [facility] Comment on above: Performed By: #### G FR, TSH, CBC, ANEU, CMP, ADIFF, LIPID #### [address] [address] Creatinine [Mass/Vol] 0.94 mg/dL Normal 0.55-1.02 [facility] Comment on above: Result Comment: Test ing performed on Siemens Dimension EXL analyzer using a modified kinetic Eugenie technique. Performed By: #### G FR, TSH, CBC, ANEU, CMP, ADIFF, LIPID #### [address] [address] Electrolyte Balance 9.0 mEq/L Normal 4.0-15.0 [facility] Comment on above: Performed By: #### G FR, TSH, CBC, ANEU, CMP, ADIFF, LIPID #### [address] [address] Globulin 2.9 G/dL Normal [facility] Comment on above: Performed By: #### G FR, TSH, CBC, ANEU, CMP, ADIFF, LIPID #### [address] [address] Glucose [Mass/Vol] 93 mg/dL Normal 70-105 [facility] Comment on above: Performed By: #### G FR, TSH, CBC, ANEU, CMP, ADIFF, LIPID #### [address] [address] Potassium [Moles/Vol] 3.5 mmol/L Normal 3.5-5.1 [facility] Comment on above: Performed By: #### G FR, TSH, CBC, ANEU, CMP, ADIFF, LIPID #### [address] [address] Sodium [Moles/Vol] 140 mmol/L Normal 136-145 [facility] Comment on above: Performed By: #### G FR, TSH, CBC, ANEU, CMP, ADIFF, LIPID #### [address] [address] Total Protein 7.0 G/dL Normal 6.4-8.2 [facility] Comment on above: Performed By: #### G FR, TSH, CBC, ANEU, CMP, ADIFF, LIPID #### [address] [address] Urea nitrogen [Mass/Vol] 15 mg/dL Normal 7-18 [facility] Comment on above: Performed By: #### G FR, TSH, CBC, ANEU, CMP, ADIFF, LIPID #### [address] [address] CNOVon 03-07-2024 CNOV Office Visit (UCUPNO ) MANUEL MALDONADO ([id number]) 1995 F Date Time Provider Department 03/07/24 9:00 AM DERREK OLIVARES During your visit today, we recorded the following information about you: Temperature Pulse Respiration Blood pressure 98.9 degrees 66/minute 12/minute 108/76 Weight Last Period 59 kg 02/15/24 Derrek Olivares APRN.FIRE LIEUTENANT 03/07/2024 8:52 AM Signed March 07, 2024 HPI: Manuel Maldonado is a 28 year old female who presents today for Right ear pain and ST x4 days PAST MEDICAL HISTORY Diagnosis Date Anxiety COVID-19 10/10/2019 Depression NEGATIVE MEDICAL HISTORY PAST SURGICAL HISTORY Procedure Laterality Date OTHER exploratory laparoscopy 2017 OTHER Excision of nose - mole FAMILY HISTORY Problem Relation Age of Onset Asthma Father Thyroid Brother Schizophrenia Brother Paranoid behavior Brother other (Bone Disease) Brother Social History Tobacco Use Smoking status: Never Smokeless tobacco: Never Vaping Use Vaping status: Never Used Substance Use Topics Alcohol use: Yes Comment: 1 drink twice a week Drug use: No ALLERGIES No Known Allergies Immunization History Administered Date(s) Administered COVID-19 original vaccine, age 12+ yr, monovalent ([employer] - PURPLE TOP) 09/04/2020 09/27/2020 tetanus diphtheria pertussis (Tdap) vaccine, age 7+ yr (ADACEL, BOOSTRIX) 04/25/2018 tuberculin skin test (TST-PPD), purified protein derivative, intradermal 01/13/2020 Current Medications: buPROPion XL (WELLBUTRIN XL) 150 mg 24 hr tablet take 1 tablet by mouth every day iv contrast (will be provided with radiology [...] guidelines link. (Patient not taking: Reported on 03/07/2024) Review of Systems Constitutional: Negative for chills and fever. HENT: Positive for ear pain and sore throat. Negative for congestion. Eyes: Negative for redness. Respiratory: Negative for cough and shortness of breath. Cardiovascular: Negative for chest pain. Gastrointestinal: Negative for abdominal pain, diarrhea, nausea and vomiting. Genitourinary: Negative. Musculoskeletal: Negative for myalgias. Skin: Negative for rash. All other systems reviewed and are negative. Objective BP 108/76 Pulse 66 Temp 98.9 Resp 12 Wt 130 lb 1.1 oz (59.0kg) SpO2 100% LMP 02/15/2024 Physical Exam Constitutional: General: She is not in acute distress. Appearance: She is not ill-appearing or toxic-appearing. HENT: Head: Normocephalic and atraumatic. Ears: Comments: Clear effusions bilaterally without any erythema or tympanic bulging Nose: Nose normal. Mouth/Throat: Mouth: Mucous membranes are moist. Pharynx: Posterior oropharyngeal erythema (mild) present. Eyes: Conjunctiva/sclera: Conjunctivae normal. Cardiovascular: Rate and Rhythm: Normal rate. Pulmonary: Effort: Pulmonary effort is normal. Skin: General: Skin is warm and dry. Capillary Refill: Capillary refill takes less than 2 seconds. Neurological: Mental Status: She is alert and oriented to person, place, and time. Medical Decision Making: Problems: Low: Acute, uncomplicated illness or injury Data: Unique source(s) for external note(s) reviewed: 1 Unique test result(s) reviewed: 1 Unique test(s) ordered: 1 Risk: Low: Low risk from testing/treatment Medical Decision Making Level: 3 - Low ASSESSMENT/PLAN: 1. Pharyngitis, unspecified etiology - ICD9: 462, ICD10: J02.9 - suspect viral - Rapid Strep negative in the office today - Discussed supportive care treatment with fluids, rest and analgesia. - The patient may also use OTC decongestants prn, OTC cough and cold meds as needed, and warm salt water gargles, throat lozenges and/or OTC throat spray as needed. - The patient should follow up in 3-5 days if symptoms persist or worsen - STREP A MOLECULAR (POC) Derrek Olivares APRN.CNP The above reflects my independent exam and review of the patient's medical record. I saw and examined the patient myself personally. Parts of the HPI, ROS, exam, impression/plan, and testing results may have been copied from the current or previous clinical notes and remain pertinent to today's visit. Current changes have been made and documented today. Voice recognition device used, may be minor grammar or spelling errors. Derrek Olivares APRN.CNP 03/07/2024 8:52 AM Signed Pt will follow up with PCP if not better in 2-3 day (more content not included)... [facility] LIPIDon 03-07-2024 Cholesterol [Mass/Vol] 146 mg/dL Normal 0-200 [facility] Comment on above: Result Comment: Chol esterol Reference Interval: Less than 200 Desirable 200-239 Borderline high risk 240 and above High risk Performed By: #### G FR, TSH, CBC, ANEU, CMP, ADIFF, LIPID #### [id number] [place], [place] [address] Cholesterol in HDL [Mass/Vol] 57 mg/dL Normal 40-60 [facility] Comment on above: Performed By: #### G FR, TSH, CBC, ANEU, CMP, ADIFF, LIPID #### [facility] [address] [place], [place] [address] Cholesterol in LDL [Mass/Vol] 83 mg/dL Normal 0-130 [facility] Comment on above: Performed By: #### G FR, TSH, CBC, ANEU, CMP, ADIFF, LIPID #### [address] [place], [place] [address] Triglyceride [Mass/Vol] 31 mg/dL Normal 0-150 [facility] Comment on above: Result Comment: Trig lyceride Reference Interval: Less than 150 Normal 150-199 Borderline high risk 200-499 High risk 500 or higher Very high risk Performed By: #### G FR, TSH, CBC, ANEU, CMP, ADIFF, LIPID #### [facility] [address] [place], [place] [address] STREP A MOLECULAR (POC)on Procedural Control Valid [facility] Strep A (POCT) Negative Negative [facility] TSHon 03-07-2024 TSH Qn 2.68 m[IU]/L Normal 0.36-3.74 [facility] Comment on above: Performed By: #### G FR, TSH, CBC, ANEU, CMP, ADIFF, LIPID #### [facility] [address] [place], [place] [address] CNPNon 01-30-2024 CNPN Telephone (INT[facility]) MANUEL MALDONADO ([id number]) 1995 F Date Time Provider Department 01/30/24 BING SMITH INTMUD During your visit today, we recorded the following information about you: Miguel Ho 01/30/2024 8:58 AM Signed Patient calls today. Reason for Call: Patient states she has been having some rectal bleeding and wanted to see Bing. Advised no appointments until 02/14 and she asked if she could be seen sooner. Advised Walk In and she said she does not feel it is an emergency and if it gets worse she will go to the walk in. Is it OK to use another slot next week to schedule patient in with Bing? Please advise. Thanks! [phone] (home) [phone] (cell) Patient last appointment: 10/04/2023 Bing Murillo, VIPIN.FIRE LIEUTENANT 01/30/2024 9:53 AM Signed If I have an opening that is fine otherwise she may need walk in clinic or stat care. Hans Jha 01/30/2024 10:38 AM Signed Left message for patient that first available appointment is 02-15-24 and we can schedule for that day to let us know if she wants that appointment. Also told her if she did not want to wait that long to go to walk in clinic or stat care. Allergies As of Date: 01/30/2024 (No Known Allergies) Date Reviewed: 10/04/2023 Reviewed by: Asmita Raman LPN - Fully Assessed Reason for Visit: Patient Question [1217] Prescriptions as of 01/30/2024 - buPROPion XL (WELLBUTRIN XL) 150 mg 24 hr tablet take 1 tablet by mouth every day - iv contrast (will be provided with radiology [...] in the CT contrast administration guidelines link. Problem List As Of Date 01/30/2024 Noted Resolved NEGATIVE MEDICAL HISTORY Nevus of nose [D22.39] 01/09/2020 Anxiety and depression [F41.9, F32.A] 01/13/2020 WATSON (dyspnea on exertion) [R06.09] 05/08/2020 Post-viral reactive airway disease [J45.998] 05/08/2020 History of 2019 novel coronavirus disease (COVI*05/08/2020 Dysmenorrhea [N94.6] 06/27/2023 Endometriosis [N80.9] 12/26/2016 Pain in pelvis [R10.2] 07/04/2022 Ear problem [H93.90] 07/16/2023 Encounter Status:Closed by HANS JHA on 01/30/24 [facility] Laboratory - Chemistry and C hemistry - challengeOrdered By: Ann Gordon on 10-10-2023 HCG ( test) Ql (U) Negative [facility] Comment on above: Very dilute urine sp ecimens, as indicated by a low specificgravity, may not contain product sales representative levels of hCG. If is still suspected, a first morning urinespecimen should be collected 48 hours later and tested. CNOVon 10-04-2023 CNOV Office Visit ([facility] ) MANUEL MALDONADO ([id number]) 1995 F Date Time Provider Department 10/04/23 10:00 AM BING SMITH INTMUD During your visit today, we recorded the following information about you: Pulse Respiration Blood pressure Weight 72/minute 16/minute 109/72 61.8 kg Height 1.626 m Bing Smith, VIPIN.FIRE LIEUTENANT 10/04/2023 6:36 PM Signed VISIT TYPE: NEW PATIENT APPOINTMENT There are no exam notes on file for this visit. CHIEF COMPLAINT: Patient presents with: Establish Care: Patient is here to establish today No concerns HPI: Manuel Maldonado is a 28 year old female here for new patient appointment. Patients previous PCP was Yoly Flowers at [facility] as her worked there but no longer does so she needed see another provider. Last wellness 10/2021. Gets paps done at [facility], [place]. Does have adopted son. Anxiety/Depression- Taking wellbutrin which does keep symptoms controlled. Does have OCD type symptoms. Doesn't know of any specific triggers. Does get down during the winter and depression is more seasonal. Used to go to counseling. Does exercise which helps. Denies any feelings of helplessness/hopelessn ess, panic attacks, difficulty sleeping, thoughts of hurting self. Endometriosis- Following with [facility] and is scheduled for expl lap next week. REVIEW OF SYSTEMS: Review of Systems Constitutional: Negative for appetite change, chills and fever. HENT: Negative for congestion, ear pain and sore throat. Eyes: Negative for redness and visual disturbance. Respiratory: Negative for cough, chest tightness, shortness of breath and wheezing. Cardiovascular: Negative for chest pain, palpitations and leg swelling. Gastrointestinal: Negative for abdominal pain, constipation, diarrhea, nausea and vomiting. Genitourinary: Positive for menstrual problem. Negative for dysuria, frequency and hematuria. Musculoskeletal: Negative for arthralgias and gait problem. Skin: Negative for color change, pallor and rash. Neurological: Negative for dizziness, syncope and headaches. Psychiatric/Behavioral : Negative for sleep disturbance and suicidal ideas. The patient is not nervous/anxious. Current Outpatient Medications Medication Sig Dispense Refill buPROPion XL (WELLBUTRIN XL) 150 mg 24 hr tablet take 1 tablet by mouth every day 90 tablet 0 iv contrast (will be provided with radiology [...] in the CT contrast administration guidelines link. 1 Each 0 No current facility-administered medications for this visit. ALLERGIES No Known Allergies PAST MEDICAL HISTORY Diagnosis Date Anxiety COVID-19 10/10/2019 Depression NEGATIVE MEDICAL HISTORY PAST SURGICAL HISTORY Procedure [...] use: Yes Comment: rare Drug use: No Employer And Job Title: None on file Years Of Education Completed: Not specified Marital Status: Social History Social History Narrative Not on file PHYSICAL EXAM BP 109/72 (BP Site: Left Arm, BP Position: Sitting, BP Cuff Size: Regular Adult) Pulse 72 Resp 16 Ht 162.6 cm (5' 4) Wt 61.8 kg (136 lb 3.2 oz) LMP 06/18/2023 (Approximate) SpO2 100% BMI 23.38 kg/m? Physical Exam Vitals reviewed. Constitutional: General: She is not in acute distress. Appearance: Normal appearance. She is normal weight. HENT: Head: Normocephalic and atraumatic. Right Ear: Tympanic membrane and ear canal normal. Left Ear: Tympanic membrane and ear canal normal. Nose: Nose normal. No congestion. Mouth/Throat: Mouth: Mucous membranes are moist. Pharynx: Oropharynx is clear. No oropharyngeal exudate or posterior oropharyngeal erythema. Eyes: Extraocular Movements: Extraocular movements intact. Conjunctiva/sclera: Conjunctivae normal. Pupils: Pupils are equal, round, and reactive to light. Neck: Vascular: No carotid bruit. Cardiovascular: Rate and Rhythm: Normal rate and regular rhythm. Pulses: Normal pulses. Heart sounds: Normal heart sounds. No murmur heard. Pulmonary: Effort: Pulmonary effort is normal. Breath sounds: Normal breath levi (more content not included)... Normal [facility] HISTORY PHYSICALon HISTORY PHYSICAL HNO ID: [id number] Author: BING SMITH APRN.FIRE LIEUTENANT Service: ? Author Type: Nurse Practitioner Type: H&P Filed: 10/04/2023 18:36 Note Text: VISIT TYPE: NEW PATIENT APPOINTMENT There are no exam notes on file for this visit. CHIEF COMPLAINT: Patient presents with: Establish Care: Patient is here to establish today No concerns HPI: Manuel Maldonado is a 28 year old female here for new patient appointment. Patients previous PCP was Yoly Flowers at [facility] as her worked there but no longer does so she needed see another provider. Last wellness 10/2021. Gets paps done at [facility], [place]. Does have adopted son. Anxiety/Depression- Taking wellbutrin which does keep symptoms controlled. Does have OCD type symptoms. Doesn't know of any specific triggers. Does get down during the winter and depression is more seasonal. Used to go to counseling. Does exercise which helps. Denies any feelings of helplessness/hopelessn ess, panic attacks, difficulty sleeping, thoughts of hurting self. Endometriosis- Following with [facility] and is scheduled for expl lap next week. REVIEW OF SYSTEMS: Review of Systems Constitutional: Negative for appetite change, chills and fever. HENT: Negative for congestion, ear pain and sore throat. Eyes: Negative for redness and visual disturbance. Respiratory: Negative for cough, chest tightness, shortness of breath and wheezing. Cardiovascular: Negative for chest pain, palpitations and leg swelling. Gastrointestinal: Negative for abdominal pain, constipation, diarrhea, nausea and vomiting. Genitourinary: Positive for menstrual problem. Negative for dysuria, frequency and hematuria. Musculoskeletal: Negative for arthralgias and gait problem. Skin: Negative for color change, pallor and rash. Neurological: Negative for dizziness, syncope and headaches. Psychiatric/Behavioral : Negative for sleep disturbance and suicidal ideas. The patient is not nervous/anxious. Current Outpatient Medications Medication Sig Dispense Refill buPROPion XL (WELLBUTRIN XL) 150 mg 24 hr tablet take 1 tablet by mouth every day 90 tablet 0 iv contrast (will be provided with radiology [...] in the CT contrast administration guidelines link. 1 Each 0 No current facility-administered medications for this visit. ALLERGIES No Known Allergies PAST MEDICAL HISTORY Diagnosis Date Anxiety COVID-19 10/10/2019 Depression NEGATIVE MEDICAL HISTORY PAST SURGICAL HISTORY Procedure [...] use: Yes Comment: rare Drug use: No Employer And Job Title: None on file Years Of Education Completed: Not specified Marital Status: Social History Social History Narrative Not on file PHYSICAL EXAM BP 109/72 (BP Site: Left Arm, BP Position: Sitting, BP Cuff Size: Regular Adult) Pulse 72 Resp 16 Ht 162.6 cm (5' 4) Wt 61.8 kg (136 lb 3.2 oz) LMP 06/18/2023 (Approximate) SpO2 100% BMI 23.38 kg/m? Physical Exam Vitals reviewed. Constitutional: General: She is not in acute distress. Appearance: Normal appearance. She is normal weight. HENT: Head: Normocephalic and atraumatic. Right Ear: Tympanic membrane and ear canal normal. Left Ear: Tympanic membrane and ear canal normal. Nose: Nose normal. No congestion. Mouth/Throat: Mouth: Mucous membranes are moist. Pharynx: Oropharynx is clear. No oropharyngeal exudate or posterior oropharyngeal erythema. Eyes: Extraocular Movements: Extraocular movements intact. Conjunctiva/sclera: Conjunctivae normal. Pupils: Pupils are equal, round, and reactive to light. Neck: Vascular: No carotid bruit. Cardiovascular: Rate and Rhythm: Normal rate and regular rhythm. Pulses: Normal pulses. Heart sounds: Normal heart sounds. No murmur heard. Pulmonary: Effort: Pulmonary effort is normal. Breath sounds: Normal breath sounds. No rhonchi or rales. Abdominal: General: Bowel sounds are normal. There is no distension. Palpations: Abdomen is soft. Tenderness: There is no abdominal tenderness. Musculoskeletal: General: No swelling or tenderness. Normal range of motion. Cervical back: Normal range of motion and n (more content not included)... Normal [facility] Basophil percentageOrdered B y: Ann Gordon on 09-29-2023 Hemoglobin (Bld) [Mass/Vol] 14.2 g/dL 12.0-15.0 [facility] WBC (Bld) [#/Vol] 5.2 10*3/uL 4.4-11.0 [facility] Determination of erythrocyte mean corpuscular volume (MCV)Ordered By: Ann Gordon on 09-29-2023 MCV (RBC) [Entitic vol] 86.7 fL 81-99 [facility] Erythrocyte distribution wid th ratioOrdered By: Annjuanita Gordon on 09-29-2023 Erythrocyte distribution width (RBC) [Ratio] 12.0 % 11.6-14.6 [facility] Erythrocyte distribution wid th standard deviationOrdered By: Ann Heidi on 09-29-2023 Erythrocyte distribution width (RBC) [Entitic vol] 38.0 fL 35.1-43.9 [facility] Hematocrit Auto (Bld) [Volum e fraction]Ordered By: Annjuanita Gordon on 09-29-2023 Hematocrit (Bld) [Volume fraction] 42.3 % 37-47 [facility] Laboratory - Hematology and Cell countsOrdered By: Ann Gordon on 09-29-2023 MCH (RBC) [Entitic mass] 29.1 pg 27.0-32.0 [facility] MCHC (RBC) [Mass/Vol] 33.6 g/dL 32-36 [facility] Platelet mean volume (Bld) [Entitic vol] 9.1 fL 6.2-12.0 [facility] Platelets (Bld) [#/Vol] 223 10*3/uL 150-450 [facility] RBC Auto (Bld) [#/Vol]Ordere d By: Ann Gordon on 09-29-2023 RBC (Bld) [#/Vol] 4.88 10*6/uL 4.2-5.[address] [facility] Cervical or vagninal specime n microscopic examination by cytology stain (reported asOrdered By: Ann Gordon on 08-10-2023 Cytology report Cyto stain Doc (Cvx/Vag) Comment . [facility] Comment on above: The Pap smear is a s creening test designed to aid in thedetection of premalignant and malignant conditions of theuterine cervix. It is not a diagnostic procedure andshould not be used as the sole means of detecting cervicalcancer. Both false-positive and false-negative reports dooccur. Laboratory - CytologyOrdered By: Ann Gordon on 08-10-2023 Grain Thresher Cyto stain Nom (Cvx/Vag) [ID] Comment . [facility] Comment on above: Familia Osborn totechnologist (ASCP) Laboratory - Miscellaneous t estsOrdered By: Ann Gordon on 08-10-2023 Service comment (Unsp spec) [Interp] . . [facility] No Panel InformationOrdered By: Ann Gordon on 08-10-2023 Human Papillomavirus Screen Comment . [facility] Comment on above: The HPV DNA reflex c dominick were not met with this specimenresult therefore, no HPV testing was performed.Performed at: [address] [id number] Director: Shaylee Valentino MD, Phone: [phone] Thin prep Papanicolaou smear with manual screeningOrdered By: Ann Gordon on 08-10-2023 Thin prep Papanicolaou smear with manual screening Comment . [facility] Comment on above: NEGATIVE FOR INTRAEP ITHELIAL LESION OR MALIGNANCY. This liquid based Th inPrep(R) pap test was screened withthe use of an image guided system. Irene 01-04-2023 CNPN Telephone ([facility]) MANUEL MALDONADO ([id number]) 1995 F Date Time Provider Department 01/04/23 YOLY FLOWERS During your visit today, we recorded the following information about you: Yoly Flowers APRN.ADELAIDE 01/04/2023 4:25 PM Signed Can you update Manuel that her CT of her abdomen and pelvis is normal. Thanks Yoly Flowers APRN.Rubina Hill MA 01/04/2023 4:35 PM Signed I left message for patient to return call. Office phone number was provided. EDA Knight Jade, MA 01/05/2023 9:49 AM Signed I left message for patient to return call. Office phone number was provided. EDA Knight Jade, MA 01/05/2023 10:50 AM Signed Patient called and was advised of results. States still having some pain. Rubina Davis MA Allergies As of Date: 01/04/2023 (No Known Allergies) Date Reviewed: 12/05/2022 Reviewed by: Yoly Flowers APRN.ADELAIDE - Fully Assessed Reason for Visit: Results [95] Prescriptions as of 01/05/2023 - iv contrast (will be provided with radiology [...] in the CT contrast administration guidelines link. - escitalopram oxalate (LEXAPRO) 5 mg tablet Take 1 tablet by mouth once daily. Problem List As Of Date 01/04/2023 Noted Resolved NEGATIVE MEDICAL HISTORY Nevus of nose [D22.39] 01/09/2020 Anxiety and depression [F41.9, F32.A] 01/13/2020 WATSON (dyspnea on exertion) [R06.09] 05/08/2020 Post-viral reactive airway disease [J45.998] 05/08/2020 History of 2019 novel coronavirus disease (COVI*05/08/2020 Encounter Status:Closed by YOLY FLOWERS on 01/04/[address] [facility] [address] ABD/PEL W CONTRASTon 12-17 CT ABD/PEL W CONTRAST [place] [id number] Name: MANUEL MALDONADO Phys: YOLY FLOWERS C.N.P. : [birth year] Age: 27 Sex: F Acct: [id number] Loc: RAD CT Exam Date: 12/31/22 Status: REG CLI Radiology No.: Unit Number: [id number] Exam # Type/Exam [id number] CT / CT ABD/PEL W CONTRAST EXAMINATION: CT OF THE ABDOMEN AND PELVIS WITH CONTRAST12/31/2022 6:[address] ABDOMEN/PELVIS WITH CONTRAST TECHNIQUE: CT of the abdomen and pelvis was performed with the administration of intravenous contrast. Multiplanar reformatted images are provided for review. Automated exposure control, iterative reconstruction, and/or weight based adjustment of the mA/kV was utilized to reduce the radiation dose to as low as reasonably achievable. COMPARISON: Ultrasound transvaginal July 18, 2019 HISTORY: ORDERING SYSTEM PROVIDED HISTORY: TECHNOLOGIST PROVIDED HISTORY: Reason for Exam:. Right lower quadrant pain FINDINGS: The size, density, and morphology of the liver, spleen, adrenals, kidneys, pancreas and unopacified loops of bowel are unremarkable. The opacified aorta demonstrates normal size and morphology without aneurysmal dilation or dissection. There are no enlarged lymph nodes by pathologic size criteria. Appendix is normal. There is no free fluid within the pelvis. The bladder and pelvic organs have an unremarkable CT appearance. The osseous structures are without gross lytic or sclerotic lesion. The lung bases are clear. IMPRESSION: No acute intra-abdominal or intrapelvic pathology. Electronically signed By Amy Vasquez MD 01/03/2023 9:29:30 PM EST Workstation ID : [id number] < > Reported By: AMY VASQUEZ M.D. Signed In Fluency By: AMY VASQUEZ M.D. << Signature on File>> Reported By: AMY VASQUEZ M.D. Signed By: AMY VASQUEZ M.D. Tests performed at: [address] [address] Normal [facility] CT ABD/PEL W IVCONon 023 [facility] CNOVon 12-05-2022 CNOV Office Visit (FMUPAN ) MANUEL MALDONADO ([id number]) 1995 F Date Time Provider Department 12/05/22 10:00 AM YOLY FLOWERS SHELDON During your visit today, we recorded the following information about you: Temperature Pulse Blood pressure Weight 98.1 degrees 56/minute 106/69 65.4 kg Height Last Period 1.626 m 11/20/22 Yoly Flowers APRN.FIRE LIEUTENANT 12/05/2022 11:20 AM Signed Manuel Harden Lucho is a 27 year old female here [...] (98.1 ?F) (Oral) Ht 162.6 cm (5' 4.02) Wt 65.4 kg (144 lb 3.2 oz) [...] F41.9, F32.A Restart lexapro at 5mg daily. Yoly Flowers APRN.FIRE LIEUTENANT Yoly Flowers APRN.ADELAIDE 12/05/2022 10:50 AM Signed If you develop any severe abdominal pain please go to ER for evaluation. Allergies As of Date: 12/05/2022 (No Known Allergies) Date Reviewed: 12/05/2022 Reviewed by: Yoly Flowers APRN.FIRE LIEUTENANT - Fully Assessed Reason for Visit: Edema [39] Cmt: States bloating with the pain for about 3 weeks. Abdominal Pain [1] Cmt: States lower right abdominal pain. States has noticed pain for awhile off and on. Primary Visit Diagnosis:Right lower quadrant abdominal pain [R10.31] Other Visit Diagnoses:Bloating [R14.0] Anxiety and depression [F41.9, F32.A] Order(s):escitalopram oxalate (LEXAPR (more content not included)... Normal [facility] MANUEL MALDONADO ([id number]) 1995 F Date Time Provider Department 12/05/22 YOLY FLOWERS During your visit today, we recorded the following information about you: Rubina Davis MA 12/05/2022 10:38 AM Signed Yoly ordered a CT Abdomen W IVCON oral and IV contrast. Diagnoses of Right lower quadrant abdominal pain [R10.31] Needing prior auth with [employer] insurance. EDA Knight 12/05/2022 11:09 AM Signed Yoly, I tried starting the request and they are requesting the office note. Please advise when this is completed and I will send the request Ryan Flowers APRN.ADELAIDE 12/05/2022 11:21 AM Signed Note signed Ryan Grant 12/05/2022 1:32 PM Signed Auth request started with [employer] with pending case # [id number] Ryan Grant 12/07/2022 6:40 AM Signed Still pending Ryan Grant 12/08/2022 11:12 AM Signed Per Day, The request has been denied. The denial reason is Based on [facility] Section(s): Acute/Persistent (Non-Chronic) Lower Abdominal Pain (AB 2.2) and Preface to the Imaging Guidelines, section Preface-3 Clinical Information, we cannot approve this request. Your healthcare provider told us that you have belly (abdomen) pain. The request cannot be approved because: Imaging only one body region will not show your doctor all of the details needed to assess you. Imaging of additional area(s) is needed. A detailed picture study (computed tomography or CT CPT?23124) of your abdomen and pelvis with pictures taken only after using a dye is more likely to show your doctor all they need to see in order to treat you. This study will be approved if requested. Ryan Davis MA 12/08/2022 12:52 PM Signed Patient called and left asking for an update on this order. Are you wanting to schedule any other testing before I give patient a call to advised that CT was denied? EDA Knight APRN.ADELAIDE 12/08/2022 4:14 PM Signed I don't understand why they are saying that. I did order the CT with oral and iv contrast, so why did it not get approved? It says if we do CT after contrast they will approve it, well that is what I ordered. Yoly Flowers APRN.ADELAIDE Grant 12/09/2022 6:38 AM Signed The order you put in was for the abdomen only. They are suggesting an abdomen/pelvis. Ryan Flowers APRN.CNP 12/09/2022 9:21 AM Signed Ok I didn't realize it didn't say pelvis as well. I put in new order for ct abd/pelvis and I want it with oral and iv contrast. I did specify in the comments that I want both. Thanks Yoly Flowers APRN.ADELAIDE Flowers APRN.ADELAIDE 12/09/2022 9:22 AM Signed Addended by: YOLY FLOWERS on: 12/09/2022 09:22 AM Modules accepted: Orders Ryan Grant 12/09/2022 9:58 AM Signed New request started with [employer] with pending case # [id number] Ryan Davis MA 12/09/2022 11:50 AM Signed Patient called and states that her insurance had gotten a hold of her and states that the CT was approved and gave her the auth number. I gave patient scheduling's number and she is going to call and schedule her CT. EDA Knight 12/09/2022 12:04 PM Signed Per Day, Approved for [facility]; Auth # [id number] 12/09/2022-01/23/2023 Ryan Grant Allergies As of Date: 12/05/2022 (No Known Allergies) Date Reviewed: 12/05/2022 Reviewed by: Yoly Flowers APRN.CNP - Fully Assessed Reason for Visit: Insurance Authorization [[id number]] Primary Visit Diagnosis:Right lower quadrant abdominal pain [R10.31] Order(s):iv contrast (will be provided with radiology test)CT ABD/PEL -Inject, intravenously, once for 1 dose.No [...] protocol in the CT contrast administration guidelines link.Disp: 1 EachRfl: 0 CT ABD/PEL W IVCON [3003138] Order #: [id number] FUTURE Prescriptions as of 12/09/2022 - iv contrast (will be provided with radiology [...] in the CT contrast administration guidelines link. - escitalopram oxalate (LEXAPRO) 5 mg tablet Take 1 tablet by mouth once (more content not included)... Normal [facility] US FEMALE PELVIS TRANSVAGon 07-18-2022 [facility] US PELVIS (TRANSVAGINAL NONO B)on 07-18-2022 US PELVIS (TRANSVAGINAL NONOB) [place] [address] Name: MANUEL MALDONADO Phys: TAVO,PHYSICIAN : [birth year] Age: 27 Sex: F Acct: [id number] Loc: RAD US Exam Date: 07/18/22 Status: REG CLI Radiology No.: Unit Number: [id number] Exam # Type/Exam [id number] US / US PELVIS (TRANSVAGINAL NONOB) EXAMINATION: TRANSVAGINAL PELVIC ULTRASOUND07/18/2022 2:38 pm TECHNIQUE: Transvaginal pelvic ultrasound was performed. COMPARISON: None HISTORY: ORDERING SYSTEM PROVIDED HISTORY: TECHNOLOGIST PROVIDED HISTORY: Reason for Exam: PELVIC PAIN FINDINGS: Indication ======== Pelvic Pain Assessment LMP on 07/13/2022 Method ====== Transabdominal and transvaginal ultrasound examination Uterus ====== Visualized. Long 79 mm x ap 30 mm x tr 53 mm Position: anteverted. No myometrial mass. Endometrial thickness, total 4.2 mm Right Ovary ========= Visualized. Size 40 mm x 26 mm x 21 mm. Vol 11.2 ml Left Ovary ======== Visualized. Size 38 mm x 25 mm x 27 mm. Vol 13.6 ml Cul de Sac ========= Visualized. No free fluid visualized There are no suspicious ovarian lesions. Small follicles are present bilaterally. There is blood flow to both ovaries with color Doppler. Spectral analysis shows arterial inflow and venous outflow waveforms in both ovaries also. IMPRESSION: Normal pelvic ultrasound. Normal ovaries with robust blood flow on duplex Doppler. Electronically signed By Laith Simon MD 07/21/2022 1:30:05 AM EST Workstation ID : [id number] < > Reported By: LAITH SIMON M.D. Signed In Fluency By: LAITH SIMON M.D. << Signature on File>> Reported By: LAITH SIMON M.D. Signed By: LAITH SIMON M.D. Tests performed at: [place] [address] [facility] CNCOon 04-22-2022 CNCO Letter Text Normal [facility] 04-15-2022 CNPN Telephone (FMUPAN) MANUEL MALDONADO ([id number]) 1995 F Date Time Provider Department 04/15/22 YOLY FLOWERS FMUPAN During your visit today, we recorded the following information about you: Rubina Davis MA 04/15/2022 10:50 AM Signed Called patient to collect payment of $30 from DOS 04/13. I left message for patient to return call. Office phone number was provided. EDA Knight MA 04/21/2022 10:09 AM Signed I left message for patient to return call. Office phone number was provided. EDA Knight MA 04/22/2022 11:25 AM Signed I left message for patient to return call. Office phone number was provided. Rubina Davis MA Letter sent. Rubina Davis MA 05/09/2022 9:37 AM Signed Patient called and made payment. Rubina Davis MA Allergies As of Date: 04/15/2022 (No Known Allergies) Date Reviewed: 04/13/2022 Reviewed by: Yoly Flowers APRN.FIRE LIEUTENANT - Fully Assessed Reason for Visit: collect payment [Other] Prescriptions as of 05/09/2022 - escitalopram oxalate (LEXAPRO) 10 mg tablet Take 1 tablet by mouth once daily. Problem List As Of Date 04/15/2022 Noted Resolved NEGATIVE MEDICAL HISTORY Nevus of nose [D22.39] 01/09/2020 Anxiety and depression [F41.9, F32.A] 01/13/2020 WATSON (dyspnea on exertion) [R06.09] 05/08/2020 Post-viral reactive airway disease [J45.998] 05/08/2020 History of 2019 novel coronavirus disease (COVI*05/08/2020 Encounter Status:Closed by RUBINA DAVIS on 04/15/22 [facility] CNOVon 04-13-2022 CNOV Office Visit (FMUPAN ) MANUEL MALDONADO ([id number]) 1995 F Date Time Provider Department 04/13/22 3:40 PM YOLY FLOWERS FMUPAN During your visit today, we recorded the following information about you: Temperature Pulse Blood pressure Weight 97.6 degrees 72/minute 106/67 65.5 kg Height Last Period 1.626 m 03/27/22 Yoly Flowers APRN.FIRE LIEUTENANT 04/25/2022 10:24 AM Signed Manuel Yodersalo is a 27 year old female here [...] (97.6 ?F) (Oral) Ht 162.6 cm (5' 4.02) Wt 65.5 kg (144 lb 6.4 oz) [...] irritation from yeast - UA DIP B/O Yoly Flowers APRN.ADELAIDE Flowers APRN.ADELAIDE 04/13/2022 4:34 PM Addendum Let me know if doesn't improve or resolve. Allergies As of Date: 04/13/2022 (No Known Allergies) Date Reviewed: 04/13/2022 Reviewed by: Yoly Flowers APRN.FIRE LIEUTENANT - Fully Assessed Reason for Visit: Vaginal Problem [117] Cmt: States itch and burning. States itch is constants in vaginal area. States some burning while urinating. Has noticed symptoms for about 2 days. Primary Visit Diagnosis:Vaginal yeast infection [B37.31] Other Visit Diagnosis:Dysuria [R30.0] Order(s):UA DIP B/O [2705131] Order #: [id number] [] fluconazole (DIFLUCAN) 150 mg tabletTake 1 tablet by mouth one time only for 1 dose. May repeat dose in 72 hours if first dose not effective.Disp: 2 tabletRfl: 0 Prescriptions as of 04/25/2022 - escitalopram oxalate (LEXAPRO) 10 mg tablet Take 1 tablet by mouth once daily. Problem List As Of Date 04/13/2022 Noted Resolved NEGATIVE MEDICAL HISTORY Nevus of nose [D22.39] 01/09/2020 Anxiety and depression [F41.9, F32.A] 01/13/2020 WATSON (dyspnea on exertion) [R06.09] 05/08/2020 Post-viral reactive airway disease [J45.998] 05/08/2020 History of 2019 novel coronavirus disease (COVI*05/08/2020 Other instructions from your clinician: Let me know if doesn't improve or resolve. Prescriptions ordered this encounter Disp Refills Start End FLUCONAZOLE 150 MG TABLET 2 ta* 0 04/13/2022 04/13/2022 Route: ORAL Sig: Take 1 tablet by mouth one time only for 1 dose. May repeat dose in 72 hours if first dose not effective. Disposition: Return if symptoms worsen or fail to improve. Follow-up and Disposition History for Encounter Date Provider Department Center 04/13/2022 [id number] FLOWERS [facility] ([facility] Encounter Status:Closed by YOLY FLOWERS on 04/25/22 Normal [facility] UA DIP B/Oon 04-13-2022 Bilirubin, Urine Negative Neg [facility] Color/Appearance light yellow [facility] Glucose Ql (U) norm Neg mg/dL [facility] Hemoglobin/Blood,Ur 50 Neg [facility] Ketones Ql (U) nrg Neg [facility] Leukocytes Negative Neg [facility] Nitrite Ql (U) Negative Neg [facility] pH (U) 5 [pH] 4.5 - 8.0 [facility] Protein.monoclonal (U) [Mass/Vol] Negative Neg mg/dL [facility] Specific [place], Ur 1.020 1.005 - 1.030 C [facility] Urobilinogen, Urine norm Normal ( <1.1) EU [facility] CNOVon 01-17-2022 CNOV Office Visit (FMUPAN ) LUCHOMANUEL R ([id number]) 1995 F Date Time Provider Department 01/17/22 11:00 AM YOLY FLOWERS During your visit today, we recorded the following information about you: Temperature Pulse Blood pressure Weight 98.2 degrees 58/minute 101/68 63.1 kg Height Last Period 1.626 m 01/06/22 Yoly Flowers APRN.FIRE LIEUTENANT 01/17/2022 4:39 PM Signed Manuel Yodersalo is a 26 year old female here [...] (98.2 ?F) (Oral) Ht 162.6 cm (5' 4.02) Wt 63.1 kg (139 lb 3.2 oz) [...] fails to improve with interventions follow up Yoly Flowers APRN.ADELAIDE Flowers APRN.ADELAIDE 01/17/2022 11:35 AM Addendum Suggest rolling foot on ice bottle to help reduce inflammation. Also suggest nsaid such as ibuprofen or aleve. If doesn't improve let me know. Referring Provider: SELF [200] Allergies As of Date: 01/17/2022 (No Known Allergies) Date Reviewed: 01/17/2022 Reviewed by: Yoly Flowers APRN.FIRE LIEUTENANT - Fully Assessed Reason for Visit: Ankle Pain [1036] Cmt: States right ankle pain. States she runs. States pain has been present for a couple weeks. Primary Visit Diagnosis:Foot pain, right [M79.671] Prescriptions as of 01/17/2022 - escitalopram oxalate (LEXAPRO) 10 mg tablet Take 1 tablet by mouth once daily. Facility-Administered Medications as of 01/17/2022 - perflutren lipid microspheres 1.3 mL in NaCl (PF) 0.9% 10 mL injection (DEFINITY) - sodium chloride 0.9 % (flush) 10 mL (BD POSIFLUSH) Problem List As Of Date 01/17/2022 Noted Resolved NEGATIVE MEDICAL HISTORY Nevus of nose [D22.39] 01/09/2020 Anxiety and depression [F41.9, F32.A] 01/13/2020 WATSON (dyspnea on exertion) [R06.09] 05/08/2020 Post-viral reactive airway disease [J45.998] 05/08/2020 History of 2019 novel coronavirus disease (COVI*05/08/2020 Other instructions from your clinician: Suggest rolling foot on ice bottle to help reduce inflammation. Also suggest nsaid such as ibuprofen or aleve. If doesn't improve let me know. Disposition: Retu (more content not included)... Normal [facility] CBCon 11-08-2021 BASO# 0.00 x10(3) Normal 0.00-0.10 [facility] Comment on above: Performed By: #### L 200.0010 #### ML - LABORATORY [address] [place] [address] Basophils/100 WBC (Bld) 0.9 % Normal 0.0-1.0 [facility] Comment on above: Performed By: #### L 200.0010 #### ML - LABORATORY [address] [place] [address] EOS# 0.10 x10(3) Normal 0.00-0.54 [facility] Comment on above: Performed By: #### L 200.0010 #### ML - LABORATORY [address] [place] [address] Eosinophils/100 WBC (Bld) 1.1 % Normal 0.5-4.9 [facility] Comment on above: Performed By: #### L 200.0010 #### ML - LABORATORY [address] [place] [address] Erythrocyte distribution width (RBC) [Ratio] 12.6 % Normal 12.5-15.7 [facility] Comment on above: Performed By: #### L 200.0010 #### ML - LABORATORY [address] [place] [address] Hematocrit (Bld) [Volume fraction] 39.2 % Normal 36.0-48.0 [facility] Comment on above: Performed By: #### L 200.0010 #### ML [facility] [address] [place] [address] Hemoglobin (Bld) [Mass/Vol] 13.2 g/dL Normal 12.0-16.0 [facility] Comment on above: Performed By: #### L 200.0010 #### ML [facility] [address] [place] [address] LYMPH# 1.80 x10(3) Normal 1.00-3.50 [facility] Comment on above: Performed By: #### L 200.0010 #### ML [facility] [address] [place] [address] Lymphocytes/100 WBC (Bld) 35.5 % Normal 16.0-48.0 [facility] Comment on above: Performed By: #### L 200.0010 #### ML - LABORATORY [address] [place] [address] 18967 MCH (RBC) [Entitic mass] 29.3 pg Normal 28.5-32.9 [facility] Comment on above: Performed By: #### L 200.0010 #### ML [facility] [address] [place] [address] MCHC (RBC) [Mass/Vol] 33.7 g/dL Normal 33.0-36.0 [facility] Comment on above: Performed By: #### L 200.0010 #### ML - LABORATORY [address] [place] [address]151 MCV (RBC) [Entitic vol] 86.9 fL Normal 80.0-99.0 [facility] Comment on above: Performed By: #### L 200.0010 #### ML - LABORATORY [address] [place] [address] MONO# 0.40 x10(3) Normal 0.30-0.80 [facility] Comment on above: Performed By: #### L 200.0010 #### ML - LABORATORY [address] [place] [address] Monocytes/100 WBC (Bld) 8.6 % Normal 4.3-11.2 [facility] Comment on above: Performed By: #### L 200.0010 #### ML - LABORATORY [address] [place] [address] 10513 NEUT# 2.70 x10(3) Normal 1.40-6.50 [facility] Comment on above: Performed By: #### L 200.0010 #### ML - LABORATORY [address] [place] [address] 46465 Neutrophils/100 WBC (Bld) 53.9 % Normal 45.0-73.0 [facility] Comment on above: Performed By: #### L 200.0010 #### ML - LABORATORY [address] [place] [address] Platelet mean volume (Bld) [Entitic vol] 7.7 fL Normal 7.5-9.5 [facility] Comment on above: Performed By: #### L 200.0010 #### ML - LABORATORY [address] [place] [address] PLT 232 X10(3) Normal 150-450 [facility] Comment on above: Performed By: #### L 200.0010 #### ML - LABORATORY [address] [place] [address] 27060 RBC 4.51 x10(6) Normal 3.30-5.00 [facility] Comment on above: Performed By: #### L 200.0010 #### ML - LABORATORY [address] [place] [address] WBC 5.1 x10(3) Normal 4.5-10.0 [facility] Comment on above: Performed By: #### L 200.0010 #### ML - [facility] [address] [place] [address] CBC W Auto Differential pane l (Bld)on 11-08-2021 BASO ABS 0.00 x10(3) 0.00 - 0.10 x10(3) [facility] Basophils/100 WBC (Bld) 0.9 % 0.0 - 1.0 % [facility] EOS ABS 0.10 x10(3) 0.00 - 0.54 x10(3) [facility] Eosinophils/100 WBC (Bld) 1.1 % 0.5 - 4.9 % [facility] Erythrocyte distribution width (RBC) [Ratio] 12.6 % 12.5 - 15.7 % [facility] Hematocrit (Bld) [Volume fraction] 39.2 % 36.0 - 48.0 % [facility] Hemoglobin (Bld) [Mass/Vol] 13.2 g/dL 12.0 - 16.0 g/dL [facility] LYMPH ABS 1.80 x10(3) 1.00 - 3.50 x10(3) [facility] Lymphocytes/100 WBC (Bld) 35.5 % 16.0 - 48.0 % [facility] MCH (RBC) [Entitic mass] 29.3 pg 28.5 - 32.9 pg [facility] MCHC (RBC) [Mass/Vol] 33.7 g/dL 33.0 - 36.0 g/dL [facility] MCV (RBC) [Entitic vol] 86.9 fL 80.0 - 99.0 fl [facility] MONO ABS 0.40 x10(3) 0.30 - 0.80 x10(3) [facility] Monocytes/100 WBC (Bld) 8.6 % 4.3 - 11.2 % [facility] Neutrophil Ab 2.70 x10(3) 1.40 - 6.50 x10(3) [facility] Neutrophils/100 WBC (Bld) 53.9 % 45.0 - 73.0 % [facility] Platelet Count 232 X10(3) 150 - 450 X10(3) [facility] Platelet mean volume (Bld) [Entitic vol] 7.7 fL 7.5 - 9.5 fl [facility] RBC 4.51 x10(6) 3.30 - 5.00 x10(6) [facility] WBC 5.1 x10(3) 4.5 - 10.0 x10(3) [facility] CMPon 11-08-2021 A:G RATIO 1.87 Normal 1.1-2.5 [facility] Comment on above: Performed By: #### L 100.0040, L100.0005 #### [facility] - LABORATORY [address] [place] [address] Albumin [Mass/Vol] 4.5 g/dL Normal 3.5-5.2 [facility] Comment on above: Performed By: #### L 100.0040, L100.0005 #### [facility] - LABORATORY [address] [place] [address] 04890 ALK. PHOS 73 U/L Normal 35-105 [facility] Comment on above: Performed By: #### L 100.0040, L100.0005 #### [facility] - LABORATORY [address] [place] [address] 34980 ALT [Catalytic activity/Vol] 6 U/L Normal 5-33 [facility] Comment on above: Performed By: #### L 100.0040, L100.0005 #### [facility] - LABORATORY [address] [place] [address] 26300 Anion gap [Moles/Vol] 17.1 mmol/L Normal 15-22 [facility] Comment on above: Performed By: #### L 100.0040, L100.0005 #### ML - LABORATORY [address] [place] [address] 30934 AST [Catalytic activity/Vol] 16 U/L Normal 5-32 [facility] Comment on above: Performed By: #### L 100.0040, L100.0005 #### ML - LABORATORY [address] [place] [address] 40801 Bilirubin [Mass/Vol] 0.6 mg/dL Normal 0.2-1.2 [facility] Comment on above: Performed By: #### L 100.0040, L100.0005 #### - LABORATORY [address] [place] [address] 14087 Calcium [Mass/Vol] 9.2 mg/dL Normal 8.6-10.0 [facility] Comment on above: Performed By: #### L 100.0040, L100.0005 #### ML - LABORATORY [address] [place] [address] 37452 Chloride [Moles/Vol] 103 mmol/L Normal 98-107 [facility] Comment on above: Performed By: #### L 100.0040, L100.0005 #### ML [facility] [address] [place] [address] 67370 CO2 [Moles/Vol] 22 mmol/L Normal 22-29 [facility] Comment on above: Performed By: #### L 100.0040, L100.0005 #### ML [facility] [address] [place] [address] 28318 Creatinine [Mass/Vol] 0.70 mg/dL Normal 0.50-0.90 [facility] Comment on above: Performed By: #### L 100.0040, L100.0005 #### [facility] [address] [place] [address] 30773 eGFR if AFR ASHTYN > 60 ml/min/1.73m2 Normal [facility] Comment on above: Result Comment: eGFR >= 60 Indicates normal kidney function. * eGFR IS AN ESTIMATE * (AFR ASHTYN = ) (non-AFR AM = NON-) MDRD calculation used in the eGFR should not be used to dose medications. For further limitations of the eGFR please refer to the Physician Website or the National Kidney Disease Education Program website (www.nkdep.nih.gov). Performed By: #### L 100.0040, L100.0005 #### ML - LABORATORY [address] [place] [address] 59730 eGFR nonAFR Ashtyn > 60 ml/Min/1.73m2 Normal U [facility] Comment on above: Performed By: #### L 100.0040, L100.0005 #### ML - LABORATORY [address] [place] [address] 57053 Globulin (S) [Mass/Vol] 2.4 g/dL Normal 1.5-4.5 [facility] Comment on above: Performed By: #### L 100.0040, L100.0005 #### ML - LABORATORY [address] [place] [address] 71321 Glucose [Mass/Vol] 83 mg/dL Normal 74-106 [facility] Comment on above: Performed By: #### L 100.0040, L100.0005 #### ML - LABORATORY [address] [place] [address] 52942 Potassium [Moles/Vol] 4.1 mmol/L Normal 3.5-5.0 [facility] Comment on above: Performed By: #### L 100.0040, L100.0005 #### ML - LABORATORY [address] [place] [address] 56832 Protein [Mass/Vol] 6.9 g/dL Normal 6.4-8.3 [facility] Comment on above: Performed By: #### L 100.0040, L100.0005 #### ML - LABORATORY [address] [place] [address] 24018 Sodium [Moles/Vol] 138 mmol/L Normal 135-145 [facility] Comment on above: Performed By: #### L 100.0040, L100.0005 #### [facility] - LABORATORY [address] [place] [address] Urea nitrogen [Mass/Vol] 13 mg/dL Normal 6-20 [facility] Comment on above: Performed By: #### L 100.0040, L100.0005 #### [facility] - LABORATORY [address] [place] [address] Comprehensive metabolic 2000 panelon 11-08-2021 Albumin [Mass/Vol] 4.5 g/dL 3.5 - 5.2 g/dL [facility] Albumin/Globulin [Mass ratio] 1.87 {ratio} 1.1 - 2.5 [facility] ALP [Catalytic activity/Vol] 73 U/L 35 - 105 U/L [facility] ALT [Catalytic activity/Vol] 6 U/L 5 - 33 U/L [facility] Anion gap [Moles/Vol] 17.1 mmol/L 15 - 2 2 mmol/L [facility] AST [Catalytic activity/Vol] 16 U/L 5 - 32 U/L [facility] Bilirubin [Mass/Vol] 0.6 mg/dL 0.2 - 1 .2 mg/dL [facility] Calcium [Mass/Vol] 9.2 mg/dL 8.6 - 10. 0 mg/dL [facility] Chloride [Moles/Vol] 103 mmol/L 98 - 10 7 mmol/L [facility] CO2 [Moles/Vol] 22 mmol/L 22 - 29 mmol/L [facility] Creatinine [Mass/Vol] 0.70 mg/dL 0.50 - 0.90 mg/dL [facility] eGFR-All Other Races > 60 ml/Min/1.73m2 [facility] GFR/1.73 sq M.predicted among blacks MDRD (S/P/Bld) [Vol rate/Area] mL/min/{1.73_m2} [facility] Globulin (S) [Mass/Vol] 2.4 g/dL 1.5 - 4.5 g/dL [facility] Glucose [Mass/Vol] 83 mg/dL 74 - 106 mg/dL [facility] Potassium [Moles/Vol] 4.1 mmol/L 3.5 - 5.0 mmol/L [facility] Protein [Mass/Vol] 6.9 g/dL 6.4 - 8.3 g/dL [facility] Sodium [Moles/Vol] 138 mmol/L 135 - 145 mmol/L [facility] Urea nitrogen [Mass/Vol] 13 mg/dL 6 - 20 mg/dL [facility] LIPID PANELon 11-08-2021 Cholesterol [Mass/Vol] 140 mg/dL Normal 130-200 [facility] Comment on above: Performed By: #### L 100.0040, L100.0005 #### [facility] [address] [place] [address] Cholesterol in HDL [Mass/Vol] 50 mg/dL Normal [facility] Comment on above: Result Comment: [place] onal Cholesterol Education Program (NCEP) guidelines: <40 mg/dL: Low HDL-Cholesterol(major risk factor for CHD) > or = 60 mg/dL: High HDL-Cholesterol(negative risk factor for CHD) HDL-cholesterol is affected by a number of factors, e.g., smoking, exercise, hormones, sex, and age. 4th Generation Test; Results may be approximately 7% lower than previous values. Performed By: #### L 100.0040, L100.0005 #### [facility] - LABORATORY [address] [place] [address] Cholesterol in LDL [Mass/Vol] 83 mg/dL Normal [facility] Comment on above: Result Comment: LDL: OPTIMAL FOR PEOPLE AT VERY HIGH RISK <70 OPTIMAL <100 NEAR OPTIMAL 100-129 BORDERLINE HIGH 130-159 HIGH 160-189 VERY HIGH >=190 Source: 2009 NCEP ATP III, ADA Guidelines Reviewed: September, Performed By: #### L 100.0040, L100.0005 #### [facility] - LABORATORY [address] [place] [address] Cholesterol in VLDL [Mass/Vol] 7 mg/dL Normal 6-40 [facility] Comment on above: Performed By: #### L 100.0040, L100.0005 #### [facility] - LABORATORY [address] [place] [address] LDL/HDL RATIO 1.7 Normal [facility] Comment on above: Performed By: #### L 100.0040, L100.0005 #### [facility] - LABORATORY [address] [place] [address] Triglyceride [Mass/Vol] 34 mg/dL Normal [facility] Comment on above: Result Comment: TRIG : DESIRABLE: <150 mg/dL Performed By: #### L 100.0040, L100.0005 #### [facility] - LABORATORY [address] [place] [address] LIPID PANEL BASICon 11-09-19 Cholesterol [Mass/Vol] 140 mg/dL 130 - 200 mg/dL [facility] Cholesterol in HDL [Mass/Vol] 50 mg/dL [facility] Cholesterol in LDL [Mass/Vol] 83 mg/dL [facility] LDL:HDL Ratio 1.7 [facility] Triglyceride [Mass/Vol] 34 mg/dL [facility] VLDL Cholesterol 7 mg/dL 6 - 40 mg/dL [facility] MRI CERVICAL SP W/O CONTRAST on 12-31-2020 MRI CERVICAL SP W/O CONTRAST EXAMINATION: MRI CERVICAL SP W/O CONTRAST CLINICAL HISTORY: Neck pain, posterior cervical pain TECHNIQUE: Routine cervical spine MR protocol without gadolinium. MQ: [id number] COMPARISON: None. RESULT: Counting reference: Craniocervical junction. Anatomic Variants: None. Localizer images: Unremarkable. Alignment: Alignment is anatomic. Craniocervical junction: Craniocervical junction is normal. Cord: The visualized cord is within normal limits of signal intensity and morphology. Bone marrow signal/fracture: No evidence of pathologic marrow infiltration. No evidence of prior fracture. Posterior elements are normal in morphology and alignment. Cervical soft tissues: The paraspinal soft tissues are within normal limits. C2-C3: Canal and foramina are patent. C3-C4: Canal and foramina are patent. C4-C5: Canal and foramina are patent. C5-C6: Mild disc height loss and disc bulge with small posterior disc osteophyte complex and central disc protrusion which efface the ventral thecal sac. No significant impact on the cord or canal stenosis. Patent bilateral neural foramina. C6-C7: Canal and foramina are patent. C7-T1: Canal and foramina are patent. IMPRESSION: Minimal cervical spondylosis C5-C6 with small central disc protrusion. No significant canal or neural foraminal stenosis. Normal signal and morphology of the cervical and visualized upper thoracic cord. Anatomic Variant: None. Assume 7 cervical vertebrae with counting from the craniocervical junction. This report was electronically signed by Minerva Calloway MD 12/31/2020 3:26 PM Reported By: MINERVA CALLOWAY MD Signed By: MINERVA CALLOWAY MD [facility] TSHon 05-11-2020 TSH Qn 1.845 mIU/mL Normal 0.550-4.780 [facility] ([place]) Comment on above: Result Comment: No te - New Reference Range in effect 20 Performed By: #### T #### [address] [address] Dermatopathologyon 0 Dermatopathology [facility] Dermatopathology Laboratory [address] [id number] DERMATOPATHOLOGY REPORT Name:MANUEL MALDONADO [facility]. Rec #. [id number] Location: [facility] Date of Procedure: 01/09/2020 Race: Date Received: 01/13/2020 /Sex: 1995 (Age: 24) / F Date Reported: 01/14/2020 Other: Submitting Physician:EJ ADAMS MD FINAL DIAGNOSIS SKIN, LEFT NASAL SIDEWALL, EXCISION: COMPOUND NEVUS, INKED MARGINS FREE IN PLANES OF SECTIONS EXAMINED. Electronically Signed Out by ALIYA GARRIDO M.D. Electronically Signed Out By ALIYA GARRIDO MD/[facility] By the signature on this report, the individual or group listed as making the Final Interpretation/Diagnos is certifies that they have reviewed this case. Clinical History: Nevus of nose (D22.39). 1.0cm 1.5cm. Dark brown papule, r/o congenital nevus vs. other. Excision. Specimens Submitted As: A: SKIN, LEFT NASAL SIDEWALL Gross Description: Received in formalin is a jane ellipsoid piece of skin measuring [id number]. The specimen is inked and embedded in toto in two blocks. The tips are in block A1. ink/01/13/2020 Microscopic Description: Microscopic analysis shows a symmetric proliferation of melanocytes in epidermis and dermis. Melanocytes nest regularly along the dermal-epidermal junction, and dermal melanocytes mature with increasing depth in dermis. The melanocytes show no cytologic atypia. Normal [facility] Comment on above: Performed By: #### D #### Dermatopathology COVIDon 10-18-2019 COVID 19 Result METAL CLEANER See Below Abnormal [facility] ([place]) Comment on above: Result Comment: Posi tive Positive for COVID19 (SARS CoV2) by PCR.(*) This test was developed and its performance characteristics determined by [facility]'s [facility] [place]. This test has been authorized by FDA under an Emergency Use Authorization (EUA). This test has been validated in accordance with the FDA's Guidance Document Policy for Diagnostics Testing in Laboratories Certified to Perform High Complexity Testing under CLIA prior to Emergency use Authorization for Coronavirus Disease 2019 during the Public Health Emergency issued on August 17, 2019. Performed By: [facility] [employer] [facility] [place] [address] Can Cutter: Vasquez Shea III, M.D. CLIA#: [id number] Phone#: Performed By: #### C OVID #### [place] [address] COVID 19 Source METAL CLEANER See Below [facility]) Comment on above: Result Comment: Naso pharyngeal Swab Performed By: [place] [address] [place] [address] Can Cutter: Vasquez Shea III, M.D. CLIA#: [id number] Phone#: Performed By: #### C OVID #### [place] [address] XR FOOT MINIMUM 3 VIEWS LEFT on 09-02-2019 XR FOOT MINIMUM 3 VIEWS LEFT ORIGINAL XR XR FOOT MINIMUM 3 VIEWS LEFT, Clinical Statement: PAIN IN LEFT FOOT Comparison: None Findings: No acute fracture, dislocation, lytic process or periosteal reaction is seen in the visualized bones. No significant degenerative or erosive changes or soft tissue calcification. No calcaneal spurs. IMPRESSION: No significant skeletal abnormality. Interpreted By: Laith Simon MD Preliminary Report By: Laith Simon MD Electronically Signed By: Laith Simon MD Dictated Date: 09/02/2019 1:56:56 PM Prelim Date: 09/02/2019 1:56:56 PM Sign Date: 09/02/2019 1:57:24 PM Ordering Provider:Cash Foy [facility] ([place]) Vital Signs Date Time Vital Sign Value Performing Clinician Facility 09-11-2024 08:31-0400 Body mass index (BMI) [Ratio] 22.59 kg/m2 Derrek Olivares APRN.[employer] Work Phone: [facility] 09-11-2024 08:31-0400 Body temperature 98.8 [degF] Derrek Olivares APRN.[employer] Work Phone: [facility] 09-11-2024 08:31-0400 Body weight 59.7 kg Derrek Olivares APRN.[employer] Work Phone: [facility] 09-11-2024 08:31-0400 Diastolic blood pressure 74 mm[Hg] Derrek Olivares APRN.[employer] Work Phone: [facility] 09-11-2024 08:31-0400 Heart rate 65 /min Derrek Olivares APRN.[employer] Work Phone: [facility] 09-11-2024 08:31-0400 Respiratory rate 18 /min Derrek Olivares APRN.[employer] Work Phone: [facility] 09-11-2024 08:31-0400 SaO2% (BldA) [Mass fraction] 100 % Derrek Olivares APRN.[employer] Work Phone: [facility] 09-11-2024 08:31-0400 Systolic blood pressure 115 mm[Hg] Derrek Olivares APRN.[employer] Work Phone: [facility] 08-06-2024 13:24-0500 Body mass index (BMI) [Ratio] 22.33 kg/m2 Derrek Olivares APRN.[employer] Work Phone: [facility] 08-06-2024 13:24-0500 Body temperature 98.71 [degF] Derrek Olivares APRN.[employer] Work Phone: [facility] 08-06-2024 13:24-0500 Body weight 59 kg Derrek Olivares APRN.[employer] Work Phone: [facility] 08-06-2024 13:24-0500 Diastolic blood pressure 69 mm[Hg] Derrek Olivares APRN.[employer] Work Phone: [facility] 08-06-2024 13:24-0500 Heart rate 78 /min Derrek Olivares APRN.[employer] Work Phone: [facility] 08-06-2024 13:24-0500 Respiratory rate 12 /min Derrek Olivares APRN.[employer] Work Phone: [facility] 08-06-2024 13:24-0500 SaO2% (BldA) [Mass fraction] 100 % Derrek Olivares APRN.[employer] Work Phone: [facility] 08-06-2024 13:24-0500 Systolic blood pressure 112 mm[Hg] Derrek Olivarse APRN.[employer] Work Phone: [facility] 03-07-2024 08:33-0400 Body mass index (BMI) [Ratio] 22.33 kg/m2 Derrek Olivares APRN.[employer] Work Phone: [facility] 03-07-2024 08:33-0400 Body temperature 98.91 [degF] Derrek Olivares APRN.[employer] Work Phone: [facility] 03-07-2024 08:33-0400 Body weight 59 kg Derrek Olivares APRN.[employer] Work Phone: [facility] 03-07-2024 08:33-0400 Diastolic blood pressure 76 mm[Hg] Derrek Olivares APRN.[employer] Work Phone: [facility] 03-07-2024 08:33-0400 Heart rate 66 /min Derrek Olivares APRN.[employer] Work Phone: [facility] 03-07-2024 08:33-0400 Respiratory rate 12 /min Derrek Olivares APRN.[employer] Work Phone: [facility] 03-07-2024 08:33-0400 SaO2% (BldA) [Mass fraction] 100 % Derrek Olivares APRN.[employer] Work Phone: [facility] 03-07-2024 08:33-0400 Systolic blood pressure 108 mm[Hg] Derrek Olivares APRN.[employer] Work Phone: [facility] 10-10-2023 13:32-0400 Body temperature 98 [degF] No Primary Care Physician [facility] 10-10-2023 13:32-0400 Diastolic blood pressure 66 mm[Hg] No Primary Care Physician [facility] 10-10-2023 13:32-0400 Heart rate 61 /min No Primary Care Physician [facility] 10-10-2023 13:32-0400 Respiratory rate 16 /min No Primary Care Physician [facility] 10-10-2023 13:32-0400 SaO2% (BldA) [Mass fraction] 100 % No Primary Care Physician [facility] 10-10-2023 13:32-0400 Systolic blood pressure 102 mm[Hg] No Primary Care Physician [facility] 10-10-2023 10:04-0400 Body height 162.56 cm No Primary Care Physician [facility] 10-10-2023 10:04-0400 Body mass index (BMI) [Ratio] 23.1 kg/m2 No Primary Care Physician [facility] 10-10-2023 10:04-0400 Body weight 61.23 kg No Primary Care Physician [facility] 10-04-2023 10:02-0400 Body height 162.6 cm Bing Smith ASSOCIATE ARTISTIC DIRECTOR.[employer] Work Phone: [facility] 10-04-2023 10:02-0400 Body weight 61.78 kg Bing Smith ASSOCIATE ARTISTIC DIRECTOR.[employer] Work Phone: [facility] 10-04-2023 10:02-0400 Diastolic blood pressure 72 mm[Hg] Bing Smith ASSOCIATE ARTISTIC DIRECTOR.[employer] Work Phone: [facility] 10-04-2023 10:02-0400 Heart rate 72 /min Bing Smith ASSOCIATE ARTISTIC DIRECTOR.[employer] Work Phone: [facility] 10-04-2023 10:02-0400 Respiratory rate 16 /min Bing Smith ASSOCIATE ARTISTIC DIRECTOR.[employer] Work Phone: [facility] 10-04-2023 10:02-0400 SaO2% (BldA) [Mass fraction] 100 % Bing Smith ASSOCIATE ARTISTIC DIRECTOR.[employer] Work Phone: [facility] 10-04-2023 10:02-0400 Systolic blood pressure 109 mm[Hg] Bing Smith ASSOCIATE ARTISTIC DIRECTOR.[employer] Work Phone: [facility] 09-29-2023 10:15-0400 Body height 162.56 cm No Primary Care Physician [facility] 09-29-2023 10:13-0400 Body mass index (BMI) [Ratio] 23.6 kg/m2 No Primary Care Physician [facility] 09-29-2023 10:13-0400 Body weight 62.59 kg No Primary Care Physician [facility] 09-29-2023 10:13-0400 Diastolic blood pressure 76 mm[Hg] No Primary Care Physician [facility] 09-29-2023 10:13-0400 Systolic blood pressure 114 mm[Hg] No Primary Care Physician [facility] 08-10-2023 08:44-0500 Body height 162.56 cm No Primary Care Physician [facility] 08-10-2023 08:44-0500 Body mass index (BMI) [Ratio] 23.7 kg/m2 No Primary Care Physician [facility] 08-10-2023 08:44-0500 Body weight 62.7 kg No Primary Care Physician [facility] 08-10-2023 08:44-0500 Diastolic blood pressure 75 mm[Hg] No Primary Care Physician [facility] 08-10-2023 08:44-0500 Systolic blood pressure 113 mm[Hg] No Primary Care Physician [facility] 07-16-2023 13:30-0500 Body temperature 98.91 [degF] Derrek Olivares APRN.[employer] Work Phone: [facility] 07-16-2023 13:30-0500 Body weight 62.6 kg Derrek Olivares APRN.[employer] Work Phone: [facility] 07-16-2023 13:30-0500 Diastolic blood pressure 82 mm[Hg] Derrek Olivares APRN.[employer] Work Phone: [facility] 07-16-2023 13:30-0500 Heart rate 67 /min Derrek Olivares APRN.[employer] Work Phone: [facility] 07-16-2023 13:30-0500 Respiratory rate 16 /min Derrek Olivares APRN.[employer] Work Phone: [facility] 07-16-2023 13:30-0500 SaO2% (BldA) [Mass fraction] 100 % Derrek Olivares ASSOCIATE ARTISTIC DIRECTOR.[employer] Work Phone: [facility] 07-16-2023 13:30-0500 Systolic blood pressure 123 mm[Hg] Derrek Olivares ASSOCIATE ARTISTIC DIRECTOR.[employer] Work Phone: [facility] 12-05-2022 10:04-0400 Body height 162.6 cm Yoly Flowers ASSOCIATE ARTISTIC DIRECTOR.[employer] Work Phone: [facility] 12-05-2022 10:04-0400 Body temperature 98.1 [degF] Yoly Flowers ASSOCIATE ARTISTIC DIRECTOR.[employer] Work Phone: [facility] 12-05-2022 10:04-0400 Body weight 65.41 kg Yoly Flowers ASSOCIATE ARTISTIC DIRECTOR.[employer] Work Phone: [facility] 12-05-2022 10:04-0400 Diastolic blood pressure 69 mm[Hg] Yoly Flowers ASSOCIATE ARTISTIC DIRECTOR.[employer] Work Phone: [facility] 12-05-2022 10:04-0400 Heart rate 56 /min Yoly Flowers ASSOCIATE ARTISTIC DIRECTOR.[employer] Work Phone: [facility] 12-05-2022 10:04-0400 SaO2% (BldA) [Mass fraction] 100 % Yoly Flowers ASSOCIATE ARTISTIC DIRECTOR.[employer] Work Phone: [facility] 12-05-2022 10:04-0400 Systolic blood pressure 106 mm[Hg] Yoly Flowers ASSOCIATE ARTISTIC DIRECTOR.[employer] Work Phone: [facility] 04-13-2022 15:45-0400 Body height 162.6 cm Yoly Flowers ASSOCIATE ARTISTIC DIRECTOR.[employer] Work Phone: [facility] 04-13-2022 15:45-0400 Body temperature 97.59 [degF] Yoly Flowers ASSOCIATE ARTISTIC DIRECTOR.[employer] Work Phone: [facility] 04-13-2022 15:45-0400 Body weight 65.5 kg Yoly Flowers ASSOCIATE ARTISTIC DIRECTOR.[employer] Work Phone: [facility] 04-13-2022 15:45-0400 Diastolic blood pressure 67 mm[Hg] Yoly Latrell ASSOCIATE ARTISTIC DIRECTOR.[employer] Work Phone: [facility] 04-13-2022 15:45-0400 Heart rate 72 /min Yolydm Flowers ASSOCIATE ARTISTIC DIRECTOR.[employer] Work Phone: [facility] 04-13-2022 15:45-0400 SaO2% (BldA) [Mass fraction] 99 % Yoly Latrell ASSOCIATE ARTISTIC DIRECTOR.[employer] Work Phone: [facility] 04-13-2022 15:45-0400 Systolic blood pressure 106 mm[Hg] Yoly Latrell ASSOCIATE ARTISTIC DIRECTOR.[employer] Work Phone: [facility] 01-17-2022 10:57-0400 Body height 162.6 cm Yolydm Flowers ASSOCIATE ARTISTIC DIRECTOR.[employer] Work Phone: [facility] 01-17-2022 10:57-0400 Body temperature 98.2 [degF] Yolydm Flowers ASSOCIATE ARTISTIC DIRECTOR.[employer] Work Phone: [facility] 01-17-2022 10:57-0400 Body weight 63.14 kg Yolydm Flowers ASSOCIATE ARTISTIC DIRECTOR.[employer] Work Phone: [facility] 01-17-2022 10:57-0400 Diastolic blood pressure 68 mm[Hg] Yoly Latrell ASSOCIATE ARTISTIC DIRECTOR.[employer] Work Phone: [facility] 01-17-2022 10:57-0400 Heart rate 58 /min Yolydm Flowers ASSOCIATE ARTISTIC DIRECTOR.[employer] Work Phone: [facility] 01-17-2022 10:57-0400 SaO2% (BldA) [Mass fraction] 98 % Yoly Latrell ASSOCIATE ARTISTIC DIRECTOR.[employer] Work Phone: [facility] 01-17-2022 10:57-0400 Systolic blood pressure 101 mm[Hg] Yoly Latrell ASSOCIATE ARTISTIC DIRECTOR.[employer] Work Phone: [facility] 11-08-2021 08:58-0400 Body height 162.6 cm Yolydm Flowers ASSOCIATE ARTISTIC DIRECTOR.[employer] Work Phone: [facility] 11-08-2021 08:58-0400 Body temperature 98.49 [degF] Yoly Flowers APRN.ADELAIDE Work Phone: [facility] 11-08-2021 08:58-0400 Body weight 62.6 kg Yoly Flowers APRN.ADELAIDE Work Phone: [facility] 11-08-2021 08:58-0400 Diastolic blood pressure 66 mm[Hg] Yoly Flowers APRN.[employer] Work Phone: [facility] 11-08-2021 08:58-0400 Heart rate 61 /min Yoly Flowers APRN.[employer] Work Phone: [facility] 11-08-2021 08:58-0400 SaO2% (BldA) [Mass fraction] 99 % Yoly Flowers APRN.[employer] Work Phone: [facility] 11-08-2021 08:58-0400 Systolic blood pressure 103 mm[Hg] Yoly Flowers APRN.[employer] Work Phone: [facility] Encounters Encounter Date Encounter Type Care Provider Facility Start: 11-20-2024 ambulatory No Primary Car e Physician Facility:[facility] Start: 10-14-2024 End: 10-14-2024 ambulatory No Primary Care Physician Facility:[facility] Start: 09-11-2024 End: 09-11-2024 Patient encounter procedure Derrek Olivares APRN.[employer] Work Phone: [facility] Comment on above: Bacterial sinusitis (Primary Dx) Start: 09-11-2024 End: 09-11-2024 ambulatory BING MUÑOZ SMITH Facility:[id number] Start: 08-21-2024 End: 08-21-2024 ambulatory No Primary Care Physician Facility:[facility] Start: 08-06-2024 End: 08-06-2024 Patient encounter procedure Derrek Olivares APRN.CNP Work Phone: [facility] Comment on above: Acute bacterial conj unctivitis of left eye (Primary Dx) Start: 08-06-2024 End: 08-06-2024 ambulatory DERREK OLIVARES Facility:[id number] Start: 08-06-2024 End: 08-06-2024 ambulatory RATNA MAIER MD Facility:[facility] Start: 08-06-2024 End: 08-06-2024 Patient encounter procedure RATNA MAIER MD [facility] Start: 03-22-2024 End: 03-22-2024 Between Visits RATNA MAIER MD [facility] Start: 03-11-2024 End: 03-11-2024 ambulatory RATNA MAIER MD Facility:[facility] Start: 03-07-2024 End: 03-07-2024 Patient encounter procedure Derrek Olivares APRN.[employer] Work Phone: [facility] Comment on above: Pharyngitis, unspeci fied etiology (Primary Dx) Start: 03-07-2024 End: 03-11-2024 Encounter for general adult medical examination without abnormal findings RATNA MAIER MD Facility:[facility] Start: 03-07-2024 End: 03-11-2024 ambulatory RATNA MAIER MD Facility[facility] Start: 01-30-2024 Telephone encounter Bing Ramos APRN.[employer] Work Phone: [facility] Comment on above: Patient Question Start: 01-04-2024 Refill Yoly Flowers APRN.[employer] Work Phone: [facility] Comment on above: Refill Request Start: 10-10-2023 Non-patient / Non-visit No [facility] Start: 10-10-2023 End: 10-10-2023 Admission to same day surgery center No Primary Care Physician [facility] Start: 10-10-2023 End: 10-10-2023 ambulatory No Primary Care Physician [facility] Work Phone: Start: 10-04-2023 End: 10-04-2023 Initial preventive medicine new pt age 18-39yrs Bing Smith ASSOCIATE ARTISTIC DIRECTOR.[employer] Work Phone: [facility] Comment on above: Encounter for annual general medical examination without abnormal findings in adult (Primary Dx); Generalized anxiety disorder; Endometriosis Start: 10-04-2023 End: 10-04-2023 ambulatory BING SMITH Facility:[id number] Start: 10-04-2023 End: 10-04-2023 Patient encounter procedure Bing Smith ASSOCIATE ARTISTIC DIRECTOR.[employer] Work Phone: [facility] Work Phone: Start: 09-29-2023 End: 09-29-2023 ambulatory No Primary Care Physician [facility] Work Phone: Start: 09-29-2023 End: 09-29-2023 Patient encounter procedure No Primary Care Physician Formerly [facility] Work Phone: Start: 09-23-2023 Refill Yoly Flowers ASSOCIATE ARTISTIC DIRECTOR.[employer]RE LIE[employer]ENANT Work Phone: [facility] Comment on above: Refill Request Start: 08-18-2023 End: 08-18-2023 ambulatory No Primary Care Physician [facility] Work Phone: Start: 08-18-2023 End: 08-18-2023 Patient encounter procedure No Primary Care Physician [facility]-Outpatient Breast Imaging Work Phone: Start: 08-10-2023 End: 08-10-2023 ambulatory No Primary Care Physician [facility] Work Phone: Start: 08-10-2023 End: 08-10-2023 Patient encounter procedure No Primary Care Physician [facility]-Laboratory, Specimen Work Phone: Start: 08-10-2023 End: 08-10-2023 Patient encounter procedure No Primary Care Physician [facility] Work Phone: Start: 07-16-2023 End: 07-16-2023 Patient encounter procedure eDrrek Olivares ASSOCIATE ARTISTIC DIRECTOR.[employer]ENA[employer] Work Phone: [facility] Urgent Care Comment on above: Eustachian tube dysf unction, right (Primary Dx) Start: 06-25-2023 Refill Yoly Flowers ASSOCIATE ARTISTIC DIRECTOR.[employer]ENANT Work Phone: [facility] Comment on above: Refill Request Start: 04-21-2023 Refill Yoly Flowers ASSOCIATE ARTISTIC DIRECTOR.[employer] Work Phone: [facility] Comment on above: Refill Request; Refi ll Request Start: 03-21-2023 Refill Yoly Flowers ASSOCIATE ARTISTIC DIRECTOR.[employer] Work Phone: [facility] Comment on above: Refill Request Start: 02-21-2023 ambulatory Yoly Flowers ASSOCIATE ARTISTIC DIRECTOR.[employer] Work Phone: [facility] Comment on above: Lexapro Start: 01-04-2023 Telephone encounter Yoly blake ASSOCIATE ARTISTIC DIRECTOR.[employer] Work Phone: [facility] Comment on above: Results Start: 12-31-2022 ambulatory YOLY FLOWERS Facility :[facility] Start: 12-31-2022 End: 12-31-2022 Subsequent hospital visit by physician Provider [facility] Start: 12-05-2022 Telephone encounter Yoly blake ASSOCIATE ARTISTIC DIRECTOR.[employer] Work Phone: [facility] Comment on above: Insurance Authorizat ion Start: 12-05-2022 End: 12-05-2022 ambulatory YOLY FLOWERS Facility:[facility] Start: 12-05-2022 End: 12-05-2022 Patient encounter procedure Yoly Flowers ASSOCIATE ARTISTIC DIRECTOR.[employer]ENA[employer] Work Phone: [facility] Comment on above: Right lower quadrant abdominal pain (Primary Dx); Bloating; Anxiety and depression Start: 07-18-2022 ambulatory MARE JACOBSEN Facility:[facility] Start: 07-18-2022 End: 07-18-2022 Subsequent hospital visit by physician Provider [facility] Start: 04-15-2022 Telephone encounter Yoly L B rock ASSOCIATE ARTISTIC DIRECTOR.[employer]ENANT Work Phone: [facility] Comment on above: collect payment Start: 04-13-2022 End: 04-13-2022 ambulatory YOLY FLOWERS Facility:[facility] Start: 04-13-2022 End: 04-13-2022 Patient encounter procedure Yoly Flowers ASSOCIATE ARTISTIC DIRECTOR.[employer] Work Phone: [facility] Comment on above: Vaginal yeast infect ion (Primary Dx); Dysuria Start: 01-17-2022 End: 01-17-2022 ambulatory YOLY FLOWERS Facility:[facility] Start: 01-17-2022 End: 01-17-2022 Patient encounter procedure Yoly Flowers ASSOCIATE ARTISTIC DIRECTOR.[employer] Work Phone: [facility] Comment on above: Foot pain, right (Pr imary Dx) Start: 11-08-2021 End: 11-08-2021 Subsequent hospital visit by physician Provider [facility] Start: 11-08-2021 End: 11-08-2021 Patient encounter procedure Yoly Flowers ASSOCIATE ARTISTIC DIRECTOR.[employer] Work Phone: [facility] Comment on above: Well adult exam (Gail jesica Dx); Anxiety and depression; Seasonal allergies Start: 11-08-2021 End: 11-08-2021 Patient encounter status Yoly Flowers ASSOCIATE ARTISTIC DIRECTOR.[employer] Work Phone: [facility] Start: 11-06-2021 Refill Melba menon ASSOCIATE ARTISTIC DIRECTOR.[employer] Work Phone: [facility] Comment on above: Refill Request; Refi ll Request Start: 11-01-2021 Telephone encounter Yoly blake ASSOCIATE ARTISTIC DIRECTOR.[employer] Work Phone: [facility] Comment on above: Appointment Start: 11-01-2021 End: 11-01-2021 Nursing evaluation of patient and report [facility] Work Phone: [facility] Comment on above: APPOINTMENT CANCELLE D (Primary Dx) Start: 10-29-2021 Patient encounter status Dusty Flowers APRN.FIRE LIEUTENANT Work Phone: [facility] Start: 10-29-2021 Telephone encounter Yoly blake APRN.[employer]IE[employer]ENANT Work Phone: [facility] Comment on above: Appointment; Orders Start: 10-28-2021 E-mail encounter fro m caregiver Yoly Flowers APRN.FIRE LIEUTENANT Work Phone: [facility] Start: 10-28-2021 Patient encounter procedure Yoly Flowers APRN.[employer]IE[employer]ENANT Work Phone: [facility] Comment on above: Request an Appointme nt Start: 10-14-2021 ambulatory Yoly Flowers APRN.[employer] Work Phone: [facility] Comment on above: Med Start: 10-08-2021 Refill Yoly Flowers APRN.[employer] Work Phone: [facility] Comment on above: Refill Request Start: 10-08-2021 Telephone encounter Yoly blake APRN.[employer]IE[employer]ENANT Work Phone: [facility] Comment on above: Appointment Start: 05-21-2020 ambulatory Yoly Flowers APRN.[employer] LIE[employer]ENANT Work Phone: [facility] Comment on above: RE: Medication Quest ion (Not Renewal) Start: 12-26-2016 Ambulatory VAN JOYONEY Facility :[facility] Procedures Date Procedure Procedure Detail Performing Clinician Start: 03-07-2024 STREP A MOLECULAR (POC) Derrek Olivares APRN.[employer] LIE[employer]ENANT Work Phone: Start: 10-10-2023 Laparoscopy No Primary Care Physician Start: 08-18-2023 Bilateral mammography N o Primary Care Physician Start: 08-18-2023 Pelvic echography No Pr imary Care Physician Start: 08-18-2023 Transvaginal echography No Primary Care Physician Start: 08-18-2023 Ultrasonography of breast No Primary Care Physician Start: 06-19-2023 Exploratory laparotomy RATNA MAIER MD Start: 12-31-2022 Ct abdomen & pelvis w/contrast material Yoly Flowers ASSOCIATE ARTISTIC DIRECTOR.[employer]ENANT Work Phone: Start: 07-18-2022 Us transvaginal Provide r Cchs Start: 04-13-2022 Urnls dip stick/tabl et rgnt auto w/o microscopy Yoly Flowers ASSOCIATE ARTISTIC DIRECTOR.[employer]ENANT Work Phone: Start: 11-08-2021 CBC + DIFF Ubaldo Dee DO Work Phone: Start: 11-08-2021 Comprehensive metabo lic 2000 panel - Serum or Plasma Maikel Dee DO Work Phone: Start: 11-08-2021 LIPID PANEL BASIC Yayo Dee DO Work Phone: Start: 06-19-2017 Exploratory laparotomy RATNA MAIER MD Start: 06-19-2012 Structure of wisdom tooth (body structure) RATNA MAIER MD None (qualifier value) ONOFRE MAIER MD Plan of Treatment Date Care Activity Detail Author Start: 04-25-2028 Urine microalbumin profile [facility] Start: 10-04-2024 End: 10-04-2024 Patient encounter procedure [facility] Internal Medicine Comment on above: physical, LAST 2023 Start: 10-03-2024 Covid-19 Vaccine () Covid-19 Vaccine () [facility] Comment on above: Postponed from 02/17 (Declined at this time) Start: 10-03-2024 Hepatitis C screening Hepatitis C Or eva [facility] Comment on above: Postponed from 04/08 (Declined at this time) Start: 10-03-2024 HIV screening HIV Screening [facility] Comment on above: Postponed from 04/08 (Declined at this time) Start: 02-18-2024 Covid-19 Vaccine () Covid-19 Vaccine ( season) [facility] Start: 02-18-2024 Covid-19 Vaccine ( season) Covid-19 Vaccine ( season) [facility] Start: 02-18-2024 Influenza vaccination [facility] Start: 10-10-2023 Ambulation without limitation [facility] Start: 10-10-2023 Medication education [facility] Start: 10-10-2023 Patient discharge [facility] Start: 10-10-2023 Procedure discontinued [facility] Start: 10-10-2023 Taking patient vital signs [facility] Start: 10-10-2023 Vital signs measurements [facility] Start: 10-10-2023 [facility] Start: 10-10-2023 Medical regimen orde rs management [facility] Start: 10-10-2023 Planned voiding [facility] Start: 08-18-2023 Digital breast tomosynthesis bilateral BREAST TOMOSYNTHESIS BI [facility] Start: 02-17-2023 Covid-19 Vaccine ( season) Covid-19 Vaccine ( season) [facility] Start: 02-17-2023 Influenza vaccination [facility] Start: 02-17-2022 [facility] Start: 10-29-2021 End: 12-29-2021 CBC W Auto Differential panel - Blood CBC + DIFF Lab Routine Well adult exam Expected: 10/29/2021, Expires: 12/29/[address] [facility] Work Phone: Comment on above: Expected: 10/29/2021 , Expires: 12/29/2021 Start: 10-29-2021 End: 12-29-2021 Comprehensive metabolic 2000 panel - Serum or Plasma COMP METABOLIC PANEL Lab Routine Well adult exam Expected: 10/29/2021, Expires: 12/29/[address] [facility] Work Phone: Comment on above: Expected: 10/29/2021 , Expires: 12/29/2021 Start: 10-29-2021 End: 12-29-2021 LIPID PANEL BASIC LIPID PANEL BASIC Lab Routine Well adult exam Expected: 10/29/2021, Expires: 12/29/[address] [facility] Work Phone: Comment on above: Expected: 10/29/2021 , Expires: 12/29/2021 Start: 02-27-2021 COVID-19 VACCINE (3 - Booster for Pfizer series) COVID-19 VACCINE (3 - Booster for Pfizer series) [facility] Start: 11-22-2020 COVID-19 VACCINE (3 - Booster for Pfizer series) COVID-19 VACCINE (3 - Booster for Pfizer series) [facility] Start: 11-22-2020 COVID-19 VACCINE (3 - Pfizer series) COVID-19 VACCINE (3 - Pfizer series) [facility] Start: 2015 PAP TESTING PAP TESTING [facility] Start: 2015 Screening for malign ant neoplasm of cervix [facility] Start: 2013 Hepatitis B Vaccine (1 of 3 - 19+ 3-dose series) Hepatitis B Vaccine (1 of 3 - 19+ 3-dose series) [facility] Start: 2012 HEPATITIS C SCREENING HEPATITIS C [facility] Start: 2012 Hepatitis C screening Hepatitis C [facility] Start: 2012 HIV SCREENING HIV SCREENING [facility] Start: 2012 HIV screening HIV Screening [facility] Start: 1994 HEPATITIS B (1 of 3 - 3-dose series) HEPATITIS B (1 of 3 - 3-dose series) [facility] Start: 1994 Hepatitis B Vaccine (1 of 3 - 3-dose series) Hepatitis B Vaccine (1 of 3 - 3-dose series) [facility] End: 01-04-2024 Ct abdomen w/contrast material CT ABDOMEN W IVCON Radiology Routine Right lower quadrant abdominal pain 1 Occurrences starting 12/05/2022 until 01/04/[address] [facility] Work Phone: Comment on above: 1 Occurrences starti ng 12/05/2022 until 01/04/2024 MG Breast - bilatera l Diagnostic [facility] Patient referral [facility] Work Phone: US Breast limited [facility] Pelvis [facility] Pelvis transvaginal [facility] Immunizations Immunization Date Immunization Notes Care Provider Magdiel santos 09-27-2020 COVID-19 vaccine, ag e 12+ yr (PFIZER-BIONTECH - PURPLE TOP) Yoly Flowers APRN.[employer]ENANT Work Phone: [facility] 09-04-2020 COVID-19 vaccine, ag e 12+ yr (PFIZER-BIONTECH - PURPLE TOP) Yoly Flowers ASSOCIATE ARTISTIC DIRECTOR.[employer]ENANT Work Phone: [facility] 01-13-2020 tuberculin skin test ; purified protein derivative solution, intradermal Derrek Olivares APRN.[employer]IE[employer]ENANT Work Phone: [facility] 06-27-2018 influenza virus vacc ine, unspecified formulation Provider [facility] 04-25-2018 tetanus toxoid, redu kiki diphtheria toxoid, and acellular pertussis vaccine, adsorbed Yoly Flowers APRN.FIRE LIEUTENANT Work Phone: [facility] Payers Date Payer Category Payer Self-pay [id number] 2023 Medicaid [id number] 2023 Unknown [id number] 2023 Private Health Insurance HUMANA HU[employer]NA MEDICAID [facility] [id number] 2023-Present [address] [address] [place] [address] Medicaid [id number] 2019 Unknown [id number] 2019 Unknown [id number] 2014 Unknown [id number] 1994 Unknown [id number] 27 1994 Unknown [id number] 27 1994 Unknown [id number] 27 1994 Unknown [id number] 27 Unknown [id number] Unknown [id number] 83 Unknown [id number] 83 Unknown [id number] 62 Unknown [id number] 62 Unknown [id number] 62 Social History Date Type Detail Facility Start: 06-27-2018 End: 06-16-2023 Tobacco smoking status NHIS Never smoked tobacco [facility] Start: 06-27-2018 End: 06-16-2023 Tobacco use and exposure Smokeless tobacco non-user [facility] Start: 02-26-2021 End: 09-11-2024 Alcohol intake Current drinker of alcohol (finding) [facility] Start: 11-26-2019 History SDOH Alcohol Comment rare [facility] Start: 1995 Sex Assigned At Female C [facility] Start: 10-29-2021 End: 04-13-2022 Exposure to SARS-CoV-2 (event) Not sure [facility] Start: 12-05-2022 End: 07-18-2023 History of Social function [facility] Start: 12-05-2022 End: 07-18-2023 Tobacco use panel [facility] Adult Depression Screening Assessment 0 [facility] Start: 06-15-2021 Gender identity Identifies as female gender (finding) [facility] Start: 08-10-2023 End: 09-29-2023 Tobacco smoking status NHIS Unknown if ever smoked [facility] Start: 10-04-2023 Alcohol Comment 1 drink twice a week [facility] Start: 02-23-2024 Tobacco smoking status Ex-smoker (finding) [facility] Sex Assigned At [facility] Start: 04-20-2015 Sex Female (finding) [facility] NEGATED: Highlighted row [facility] Goals Date Patient Goal Desired Activity /State Mental Status Date Assessment Result Facility 10-10-2023 Cognitive function Voice/Name [facility] Work Phone: Clinical Notes 10-08-2021 to 09-11-2024 Derrek Olivares APRN.ADELAIDE - 09/11/2024 8:51 AM EDTPatient InstructionsPatient InstructionsCarDerrek torres APRN.CNP - 08/06/2024 1:27 PM ESTPatient Instructions Note Date & Type Note Facility 09-11-2024 Note HNO ID: [id number] Author: DERREK OLIVARES APRN.FIRE LIEUTENANT Service: ? Author Type: Nurse Practitioner Type: Progress Notes Filed: 09/11/2024 08:53 Note Text: September 11, 2024 HPI: Manuel Maldonado is a 29 year old female who presents today for cough and sinus drainage and congestion x 8 days. Patient states the sinus congestion is getting somewhat worse. PAST MEDICAL HISTORY Diagnosis Date Anxiety COVID-19 10/10/2019 Depression NEGATIVE MEDICAL HISTORY PAST SURGICAL HISTORY Procedure Laterality Date OTHER exploratory laparoscopy 2018 OTHER Excision of nose - mole FAMILY HISTORY Problem Relation Age of Onset Asthma Father Thyroid Brother Schizophrenia Brother Paranoid behavior Brother other (Bone Disease) Brother Social History Tobacco Use Smoking status: Never Smokeless tobacco: Never Vaping Use Vaping status: Never Used Substance Use Topics Alcohol use: Yes Drug use: No ALLERGIES No Known Allergies Immunization History Administered Date(s) Administered COVID-19 original vaccine, age 12+ yr, monovalent (PFI[employer]ER-[employer] - PURPLE TOP) 09/04/2020 09/27/2020 tetanus diphtheria pertussis (Tdap) vaccine, age 7+ yr (ADACEL, BOOSTRIX) 04/25/2018 tuberculin skin test (TST-PPD), purified protein derivative, intradermal 01/13/2020 Current Medications: buPROPion XL (WELLBUTRIN XL) 150 mg 24 hr tablet 150 mg. fluticasone (FLONASE) 50 mcg/actuation nasal spray Use 1 [place] in each nostril two times a day for 7 days. amoxicillin-clavulanate potassium (AUGMENTIN) 875-125 mg per tablet Take 1 tablet by mouth every 12 hours for 10 days. buPROPion XL (WELLBUTRIN XL) 150 mg 24 hr tablet take 1 tablet by mouth every day (Patient not taking: Reported on 09/11/2024) iv contrast (will be provided with radiology [...] guidelines link. (Patient not taking: Reported on 03/07/2024) Review of Systems Constitutional: Negative for chills and fever. HENT: Positive for congestion and sinus pain. Negative for ear pain and sore throat. Eyes: Negative for redness. Respiratory: Positive for cough. Negative for shortness of breath. Cardiovascular: Negative for chest pain. Gastrointestinal: Negative for abdominal pain, diarrhea, nausea and vomiting. Genitourinary: Negative. Musculoskeletal: Negative for myalgias. Skin: Negative for rash. All other systems reviewed and are negative. Objective BP 115/74 Pulse 65 Temp 98.8 Resp 18 Wt 131 lb 9.8 oz (59.7kg) SpO2 100% LMP 09/07/2024 Physical Exam Constitutional: General: She is not in acute distress. Appearance: Normal appearance. She is not ill-appearing or toxic-appearing. HENT: Head: Normocephalic and atraumatic. Right Ear: Tympanic membrane normal. Left Ear: Tympanic membrane normal. Nose: Congestion present. Mouth/Throat: Mouth: Mucous membranes are moist. Pharynx: Oropharynx is clear. Uvula midline. No posterior oropharyngeal erythema or uvula swelling. Tonsils: No tonsillar exudate or tonsillar abscesses. 1+ on the right. 1+ on the left. Eyes: Conjunctiva/sclera: Conjunctivae normal. Right eye: Right conjunctiva is not injected. No exudate. Left eye: Left conjunctiva is not injected. No exudate. Cardiovascular: Rate and Rhythm: Normal rate and regular rhythm. Pulmonary: Effort: Pulmonary effort is normal. No respiratory distress. Breath sounds: No stridor. Musculoskeletal: Cervical back: Normal range of motion and neck supple. No rigidity. Skin: General: Skin is warm and dry. Capillary Refill: Capillary refill takes less than 2 seconds. Findings: No petechiae or rash. Neurological: Mental Status: She is alert and oriented to person, place, and time. Psychiatric: Mood and Affect: Mood normal. Behavior: Behavior normal. Medical Decision Making: Problems: Low: Acute, uncomplicated illness or injury Data: Unique source(s) for external note(s) reviewed: 1 Risk: Moderate: Moderate risk from testing/treatment and Drug management Medical Decision Making Level: 3 - Low ASSESSMENT/PLAN: 1. Bacterial sinusitis - ICD9: 473.9, 041.9, ICD10: J32.9, B96.89 - Will begin treatment with as per antibiotic as written, see orders - The patient should also be given OTC decongestants prn, OTC cough and cold meds as needed, and behind the counter Pseudoephedrine for the first 5-7 days of treatment. - Supportive care with plenty of fluids, rest, and analgesia prn. - Follow up in 3-5 days if symptoms persist or worsen. - FLUTICA (more content not included)... [facility] 09-11-2024 History of Presen t illness Narrative September 11, 2024 HPI: Manuel Maldonado is a 29 year old female who presents today for cough and sinus drainage and congestion x 8 days. Patient states the sinus congestion is getting somewhat worse. PAST MEDICAL HISTORY Diagnosis Date Anxiety COVID-19 10/10/2019 Depression NEGATIVE MEDICAL HISTORY PAST SURGICAL HISTORY Procedure Laterality Date OTHER exploratory laparoscopy 2017 OTHER Excision of nose - mole FAMILY HISTORY Problem Relation Age of Onset Asthma Father Thyroid Brother Schizophrenia Brother Paranoid behavior Brother other (Bone Disease) Brother Social History Tobacco Use Smoking status: Never Smokeless tobacco: Never Vaping Use Vaping status: Never Used Substance Use Topics Alcohol use: Yes Drug use: No ALLERGIES No Known Allergies Immunization History Administered Date(s) Administered COVID-19 original vaccine, age 12+ yr, monovalent (PFIZER-BIONTECH - PURPLE TOP) 09/04/2020 09/27/2020 tetanus diphtheria pertussis (Tdap) vaccine, age 7+ yr (ADACEL, BOOSTRIX) 04/25/2018 tuberculin skin test (TST-PPD), purified protein derivative, intradermal 01/13/2020 Current Medications: buPROPion XL (WELLBUTRIN XL) 150 mg 24 hr tablet 150 mg. fluticasone (FLONASE) 50 mcg/actuation nasal spray Use 1 [place] in each nostril two times a day for 7 days. amoxicillin-clavulanate potassium (AUGMENTIN) 875-125 mg per tablet Take 1 tablet by mouth every 12 hours for 10 days. buPROPion XL (WELLBUTRIN XL) 150 mg 24 hr tablet take 1 tablet by mouth every day (Patient not taking: Reported on 09/11/2024) iv contrast (will be provided with radiology [...] guidelines link. (Patient not taking: Reported on 03/07/2024) Review of Systems Constitutional: Negative for chills and fever. HENT: Positive for congestion and sinus pain. Negative for ear pain and sore throat. Eyes: Negative for redness. Respiratory: Positive for cough. Negative for shortness of breath. Cardiovascular: Negative for chest pain. Gastrointestinal: Negative for abdominal pain, diarrhea, nausea and vomiting. Genitourinary: Negative. Musculoskeletal: Negative for myalgias. Skin: Negative for rash. All other systems reviewed and are negative. Objective BP 115/74 Pulse 65 Temp 98.8 Resp 18 Wt 131 lb 9.8 oz (59.7kg) SpO2 100% LMP 09/07/2024 Physical Exam Constitutional: General: She is not in acute distress. Appearance: Normal appearance. She is not ill-appearing or toxic-appearing. HENT: Head: Normocephalic and atraumatic. Right Ear: Tympanic membrane normal. Left Ear: Tympanic membrane normal. Nose: Congestion present. Mouth/Throat: Mouth: Mucous membranes are moist. Pharynx: Oropharynx is clear. Uvula midline. No posterior oropharyngeal erythema or uvula swelling. Tonsils: No tonsillar exudate or tonsillar abscesses. 1+ on the right. 1+ on the left. Eyes: Conjunctiva/sclera: Conjunctivae normal. Right eye: Right conjunctiva is not injected. No exudate. Left eye: Left conjunctiva is not injected. No exudate. Cardiovascular: Rate and Rhythm: Normal rate and regular rhythm. Pulmonary: Effort: Pulmonary effort is normal. No respiratory distress. Breath sounds: No stridor. Musculoskeletal: Cervical back: Normal range of motion and neck supple. No rigidity. Skin: General: Skin is warm and dry. Capillary Refill: Capillary refill takes less than 2 seconds. Findings: No petechiae or rash. Neurological: Mental Status: She is alert and oriented to person, place, and time. Psychiatric: Mood and Affect: Mood normal. Behavior: Behavior normal. Medical Decision Making: Problems: Low: Acute, uncomplicated illness or injury Data: Unique source(s) for external note(s) reviewed: 1 Risk: Moderate: Moderate risk from testing/treatment and Drug management Medical Decision Making Level: 3 - Low ASSESSMENT/PLAN: 1. Bacterial sinusitis - ICD9: 473.9, 041.9, ICD10: J32.9, B96.89 - Will begin treatment with as per antibiotic as written, see orders - The patient should also be given OTC decongestants prn, OTC cough and cold meds as needed, and behind the counter Pseudoephedrine for the first 5-7 days of treatment. - Supportive care with plenty of fluids, rest, and analgesia prn. - Follow up in 3-5 days if symptoms persist or worsen. - FLUTICASONE PROPIONATE 50 MCG/ACTUATION NASAL SPRAY,SUSPENSION - AMOXICILLIN 875 MG-POTASSIUM CLAVULANATE 125 MG TABLET Derrek Olivares APRN.FIRE LIE[employer]NT The above reflects my independent exam and review of the patient's medical record. I saw and examined the patient myself personally. Parts of the HPI, ROS, exam, impression/plan, and testing results may have been copied from the current or previous clinical notes and remain pertinent to today's visit. Current changes have been made and documented today. Voice recognition device used, may be minor grammar or spelling errors. documented in this encounter [facility] 09-11-2024 Instructions Derrek Olivares APRN.CNP - 09/11/2024 8:51 AM EDT Pt will follow up with PCP if not better in 2-3 days or go to emergency department if worsening condition I would use the Flonase for 2 days I would use the Flonase for 2 days and then if you do not notice a difference you could start the antibiotic at that time. SINUSITIS: You have sinusitis, an infection of the sinus cavities around the nose. This infection usually follows a respiratory illness; it can also be related to allergies, changes in atmospheric pressure (flying, diving), or anything that blocks nasal drainage. Symptoms include: headache, facial pain, a thick nasal discharge, congestion, and cough. The treatment includes antibiotic therapy, increasing oral fluids, and pain medication if needed. Nose spray decongestants (Afrin, Fady-Synephrine) and oral decongestants may be needed to reduce congestion and drainage. Rarely the sinus must be irrigated to remove the infected material. Sinusitis can lead to serious complications by spreading to other areas such as the eye or brain. Please call your doctor or return here right away if you have any of the following more serious symptoms: Unusual swelling around the eye or trouble seeing. Increasing pain, severe headache, or toothache. Nausea, vomiting, or unusual drowsiness. documented in this encounter [facility] 08-06-2024 Instructions Derrek Olivares APRN.CNP - 08/06/2024 1:30 PM EST Pt will follow up with PCP if not better in 2-3 days or go to emergency department if worsening condition CONJUNCTIVITIS GENERAL INFORMATION: Conjunctivitis is also known as pink eye. It is an irritation of the underside of the eyelid and the white part of the eye. Conjunctivitis can be caused by infection, chemical irritation, or allergy. If infectious, it is very contagious. INSTRUCTIONS: The doctor has prescribed antibiotic drops or ointment. Use them as prescribed. Do not touch the dropper to the eye. Throw out the medication after completing treatment. If the doctor only prescribed the medication to be placed in one eye, and the other eye starts to bother you with the same symptoms, you may treat it in the same fashion. To ease discomfort, apply a warm or cool clean washcloth to your eye several times a day for 10 to 20 minutes. Gently wipe away discharge from the eyes with tissues. Wash your hands often with soap and use paper towels to dry them. Do not share towels, washcloths, or pillows. This could spread infection. Do not use eye make-up until the infection has resolved. Keep contact lenses out of eyes until the irritation is gone. Discard any eye make-up which you may have contaminated before the infection was diagnosed, and any eye make-up older than one year. Children should not return to school or daycare until the eye is no longer pink. Do not drive or operate machinery if your vision is blurred. Wear sunglasses if your eyes are sensitive to the light. CONTACT YOUR DOCTOR IF YOU OR YOUR CHILD NOTICE: *The eye is still pink 3 days after starting treatment with medicine. *Pain in the eye increases. *The redness is spreading. *Vision becomes blurred. *You have a temperature over 100.5 F (38 C). documented in this encounter [facility] 08-06-2024 Note HNO ID: [id number] Author: DERREK OLIVARES APRN.ADELAIDE Service: ? Author Type: Nurse Practitioner Type: Progress Notes Filed: 08/06/2024 13:32 Note Text: August 06, 2024 HPI: Manuel Maldonado is a 29 year old female who presents today for left eye redness that started today. She does wear contacts but has them out and will dispose of them. She has not had any URI symptoms. PAST MEDICAL HISTORY Diagnosis Date Anxiety COVID-19 10/10/2019 Depression NEGATIVE MEDICAL HISTORY PAST SURGICAL HISTORY Procedure Laterality Date OTHER exploratory laparoscopy 2017 OTHER Excision of nose - mole FAMILY HISTORY Problem Relation Age of Onset Asthma Father Thyroid Brother Schizophrenia Brother Paranoid behavior Brother other (Bone Disease) Brother Social History Tobacco Use Smoking status: Never Smokeless tobacco: Never Vaping Use Vaping status: Never Used Substance Use Topics Alcohol use: Yes Drug use: No ALLERGIES No Known Allergies Immunization History Administered Date(s) Administered COVID-19 original vaccine, age 12+ yr, monovalent ([employer] - PURPLE TOP) 09/04/2020 09/27/2020 tetanus diphtheria pertussis (Tdap) vaccine, age 7+ yr (ADACEL, BOOSTRIX) 04/25/2018 tuberculin skin test (TST-PPD), purified protein derivative, intradermal 01/13/2020 Current Medications: buPROPion XL (WELLBUTRIN XL) 150 mg 24 hr tablet take 1 tablet by mouth every day iv contrast (will be provided with radiology [...] guidelines link. (Patient not taking: Reported on 03/07/2024) Review of Systems Constitutional: Negative for chills and fever. HENT: Negative for congestion, ear pain and sore throat. Eyes: Positive for redness. Negative for discharge. Respiratory: Negative for cough and shortness of breath. Cardiovascular: Negative for chest pain. Gastrointestinal: Negative for abdominal pain, diarrhea, nausea and vomiting. Genitourinary: Negative. Musculoskeletal: Negative for myalgias. Skin: Negative for rash. All other systems reviewed and are negative. Objective BP 112/69 Pulse 78 Temp 98.7 Resp 12 Wt 130 lb 1.1 oz (59.0kg) SpO2 100% LMP 07/23/2024 Physical Exam Constitutional: General: She is not in acute distress. Appearance: She is not toxic-appearing. HENT: Head: Normocephalic and atraumatic. Right Ear: Tympanic membrane normal. Left Ear: Tympanic membrane normal. Nose: No congestion. Mouth/Throat: Mouth: Mucous membranes are moist. Pharynx: No posterior oropharyngeal erythema. Eyes: Conjunctiva/sclera: Right eye: Right conjunctiva is not injected. No exudate. Left eye: Left conjunctiva is injected. No exudate. Cardiovascular: Rate and Rhythm: Normal rate. Pulmonary: Effort: Pulmonary effort is normal. Skin: General: Skin is warm and dry. Capillary Refill: Capillary refill takes less than 2 seconds. Neurological: Mental Status: She is alert and oriented to person, place, and time. Medical Decision Making: Problems: Low: Acute, uncomplicated illness or injury Data: Unique source(s) for external note(s) reviewed: 1 Risk: Moderate: Moderate risk from testing/treatment and Drug management Medical Decision Making Level: 3 - Low ASSESSMENT/PLAN: 1. Acute bacterial conjunctivitis of left eye - ICD9: 372.03, ICD10: H10.32 Bacterial - see medication orders - course and contagiousness issues discussed, including hand washing. - Instructed to call if high fever, development of periorbital redness or swelling, eye pain, visual changes, concerns or if symptoms persist. - TOBRAMYCIN 0.3 % EYE DROPS Derrek Olivares APRN.[employer] The above reflects my independent exam and review of the patient's medical record. I saw and examined the patient myself personally. Parts of the HPI, ROS, exam, impression/plan, and testing results may have been copied from the current or previous clinical notes and remain pertinent to today's visit. Current changes have been made and documented today. Voice recognition device used, may be minor grammar or spelling errors. [facility] 08-06-2024 History of Presen t illness Narrative August 06, 2024 HPI: Manuel Maldonado is a 29 year old female who presents today for left eye redness that started today. She does wear contacts but has them out and will dispose of them. She has not had any URI symptoms. PAST MEDICAL HISTORY Diagnosis Date Anxiety COVID-19 10/10/2019 Depression NEGATIVE MEDICAL HISTORY PAST SURGICAL HISTORY Procedure Laterality Date OTHER exploratory laparoscopy 2018 OTHER Excision of nose - mole FAMILY HISTORY Problem Relation Age of Onset Asthma Father Thyroid Brother Schizophrenia Brother Paranoid behavior Brother other (Bone Disease) Brother Social History Tobacco Use Smoking status: Never Smokeless tobacco: Never Vaping Use Vaping status: Never Used Substance Use Topics Alcohol use: Yes Drug use: No ALLERGIES No Known Allergies Immunization History Administered Date(s) Administered COVID-19 original vaccine, age 12+ yr, monovalent ([employer] - PURPLE TOP) 09/04/2020 09/27/2020 tetanus diphtheria pertussis (Tdap) vaccine, age 7+ yr (ADACEL, BOOSTRIX) 04/25/2018 tuberculin skin test (TST-PPD), purified protein derivative, intradermal 01/13/2020 Current Medications: buPROPion XL (WELLBUTRIN XL) 150 mg 24 hr tablet take 1 tablet by mouth every day iv contrast (will be provided with radiology [...] guidelines link. (Patient not taking: Reported on 03/07/2024) Review of Systems Constitutional: Negative for chills and fever. HENT: Negative for congestion, ear pain and sore throat. Eyes: Positive for redness. Negative for discharge. Respiratory: Negative for cough and shortness of breath. Cardiovascular: Negative for chest pain. Gastrointestinal: Negative for abdominal pain, diarrhea, nausea and vomiting. Genitourinary: Negative. Musculoskeletal: Negative for myalgias. Skin: Negative for rash. All other systems reviewed and are negative. Objective BP 112/69 Pulse 78 Temp 98.7 Resp 12 Wt 130 lb 1.1 oz (59.0kg) SpO2 100% LMP 07/23/2024 Physical Exam Constitutional: General: She is not in acute distress. Appearance: She is not toxic-appearing. HENT: Head: Normocephalic and atraumatic. Right Ear: Tympanic membrane normal. Left Ear: Tympanic membrane normal. Nose: No congestion. Mouth/Throat: Mouth: Mucous membranes are moist. Pharynx: No posterior oropharyngeal erythema. Eyes: Conjunctiva/sclera: Right eye: Right conjunctiva is not injected. No exudate. Left eye: Left conjunctiva is injected. No exudate. Cardiovascular: Rate and Rhythm: Normal rate. Pulmonary: Effort: Pulmonary effort is normal. Skin: General: Skin is warm and dry. Capillary Refill: Capillary refill takes less than 2 seconds. Neurological: Mental Status: She is alert and oriented to person, place, and time. Medical Decision Making: Problems: Low: Acute, uncomplicated illness or injury Data: Unique source(s) for external note(s) reviewed: 1 Risk: Moderate: Moderate risk from testing/treatment and Drug management Medical Decision Making Level: 3 - Low ASSESSMENT/PLAN: 1. Acute bacterial conjunctivitis of left eye - ICD9: 372.03, ICD10: H10.32 Bacterial - see medication orders - course and contagiousness issues discussed, including hand washing. - Instructed to call if high fever, development of periorbital redness or swelling, eye pain, visual changes, concerns or if symptoms persist. - TOBRAMYCIN 0.3 % EYE DROPS Derrek Olivares APRN.ADELAIDE The above reflects my independent exam and review of the patient's medical record. I saw and examined the patient myself personally. Parts of the HPI, ROS, exam, impression/plan, and testing results may have been copied from the current or previous clinical notes and remain pertinent to today's visit. Current changes have been made and documented today. Voice recognition device used, may be minor grammar or spelling errors. documented in this encounter [facility] 03-07-2024 Instructions Derrek Olivares APRN.CNP - 03/07/2024 8:52 AM EDT Pt will follow up with PCP if not better in 2-3 days or go to emergency department if worsening condition Your rapid strep was negative Gargle with warm salt water, I recommend Tylenol or Ibuprofen for sore throat if needed. I recommend warm liquids and soft foods until symptoms resolve. Follow-up for recheck if your symptoms worsen or do not improve in 5-7 days. If you are having any trouble swallowing or breathing, seek immediate care in the ER for further evaluation. documented in this encounter [facility] 03-07-2024 Note HNO ID: [id number] Author: DERREK OLIVARES APRN.CNP Service: ? Author Type: Nurse Practitioner Type: Progress Notes Filed: 03/07/2024 08:52 Note Text: March 07, 2024 HPI: Manuel Maldonado is a 28 year old female who presents today for Right ear pain and ST x4 days PAST MEDICAL HISTORY Diagnosis Date Anxiety COVID-19 10/10/2019 Depression NEGATIVE MEDICAL HISTORY PAST SURGICAL HISTORY Procedure Laterality Date OTHER exploratory laparoscopy 2017 OTHER Excision of nose - mole FAMILY HISTORY Problem Relation Age of Onset Asthma Father Thyroid Brother Schizophrenia Brother Paranoid behavior Brother other (Bone Disease) Brother Social History Tobacco Use Smoking status: Never Smokeless tobacco: Never Vaping Use Vaping status: Never Used Substance Use Topics Alcohol use: Yes Comment: 1 drink twice a week Drug use: No ALLERGIES No Known Allergies Immunization History Administered Date(s) Administered COVID- original vaccine, age 12+ yr, monovalent ([employer] - PURPLE TOP) 09/04/2020 09/27/2020 tetanus diphtheria pertussis (Tdap) vaccine, age 7+ yr (ADACEL, BOOSTRIX) 04/25/2018 tuberculin skin test (TST-PPD), purified protein derivative, intradermal 01/13/2020 Current Medications: buPROPion XL (WELLBUTRIN XL) 150 mg 24 hr tablet take 1 tablet by mouth every day iv contrast (will be provided with radiology [...] guidelines link. (Patient not taking: Reported on 03/07/2024) Review of Systems Constitutional: Negative for chills and fever. HENT: Positive for ear pain and sore throat. Negative for congestion. Eyes: Negative for redness. Respiratory: Negative for cough and shortness of breath. Cardiovascular: Negative for chest pain. Gastrointestinal: Negative for abdominal pain, diarrhea, nausea and vomiting. Genitourinary: Negative. Musculoskeletal: Negative for myalgias. Skin: Negative for rash. All other systems reviewed and are negative. Objective BP 108/76 Pulse 66 Temp 98.9 Resp 12 Wt 130 lb 1.1 oz (59.0kg) SpO2 100% LMP 02/15/2024 Physical Exam Constitutional: General: She is not in acute distress. Appearance: She is not ill-appearing or toxic-appearing. HENT: Head: Normocephalic and atraumatic. Ears: Comments: Clear effusions bilaterally without any erythema or tympanic bulging Nose: Nose normal. Mouth/Throat: Mouth: Mucous membranes are moist. Pharynx: Posterior oropharyngeal erythema (mild) present. Eyes: Conjunctiva/sclera: Conjunctivae normal. Cardiovascular: Rate and Rhythm: Normal rate. Pulmonary: Effort: Pulmonary effort is normal. Skin: General: Skin is warm and dry. Capillary Refill: Capillary refill takes less than 2 seconds. Neurological: Mental Status: She is alert and oriented to person, place, and time. Medical Decision Making: Problems: Low: Acute, uncomplicated illness or injury Data: Unique source(s) for external note(s) reviewed: 1 Unique test result(s) reviewed: 1 Unique test(s) ordered: 1 Risk: Low: Low risk from testing/treatment Medical Decision Making Level: 3 - Low ASSESSMENT/PLAN: 1. Pharyngitis, unspecified etiology - ICD9: 462, ICD10: J02.9 - suspect viral - Rapid Strep negative in the office today - Discussed supportive care treatment with fluids, rest and analgesia. - The patient may also use OTC decongestants prn, OTC cough and cold meds as needed, and warm salt water gargles, throat lozenges and/or OTC throat spray as needed. - The patient should follow up in 3-5 days if symptoms persist or worsen - STREP A MOLECULAR (POC) Derrek Olivares APRN.FIRE LIEUTENANT The above reflects my independent exam and review of the patient's medical record. I saw and examined the patient myself personally. Parts of the HPI, ROS, exam, impression/plan, and testing results may have been copied from the current or previous clinical notes and remain pertinent to today's visit. Current changes have been made and documented today. Voice recognition device used, may be minor grammar or spelling errors. [facility] 03-07-2024 History of Presen t illness Narrative March 07, 2024 HPI: Manuel Maldonado is a 28 year old female who presents today for Right ear pain and ST x4 days PAST MEDICAL HISTORY Diagnosis Date Anxiety COVID-19 10/10/2019 Depression NEGATIVE MEDICAL HISTORY PAST SURGICAL HISTORY Procedure Laterality Date OTHER exploratory laparoscopy 2017 OTHER Excision of nose - mole FAMILY HISTORY Problem Relation Age of Onset Asthma Father Thyroid Brother Schizophrenia Brother Paranoid behavior Brother other (Bone Disease) Brother Social History Tobacco Use Smoking status: Never Smokeless tobacco: Never Vaping Use Vaping status: Never Used Substance Use Topics Alcohol use: Yes Comment: 1 drink twice a week Drug use: No ALLERGIES No Known Allergies Immunization History Administered Date(s) Administered original vaccine, age 12+ yr, monovalent ([employer] - PURPLE TOP) 09/04/2020 09/27/2020 tetanus diphtheria pertussis (Tdap) vaccine, age 7+ yr (ADACEL, BOOSTRIX) 04/25/2018 tuberculin skin test (TST-PPD), purified protein derivative, intradermal 01/13/2020 Current Medications: buPROPion XL (WELLBUTRIN XL) 150 mg 24 hr tablet take 1 tablet by mouth every day iv contrast (will be provided with radiology [...] guidelines link. (Patient not taking: Reported on 03/07/2024) Review of Systems Constitutional: Negative for chills and fever. HENT: Positive for ear pain and sore throat. Negative for congestion. Eyes: Negative for redness. Respiratory: Negative for cough and shortness of breath. Cardiovascular: Negative for chest pain. Gastrointestinal: Negative for abdominal pain, diarrhea, nausea and vomiting. Genitourinary: Negative. Musculoskeletal: Negative for myalgias. Skin: Negative for rash. All other systems reviewed and are negative. Objective BP 108/76 Pulse 66 Temp 98.9 Resp 12 Wt 130 lb 1.1 oz (59.0kg) SpO2 100% LMP 02/15/2024 Physical Exam Constitutional: General: She is not in acute distress. Appearance: She is not ill-appearing or toxic-appearing. HENT: Head: Normocephalic and atraumatic. Ears: Comments: Clear effusions bilaterally without any erythema or tympanic bulging Nose: Nose normal. Mouth/Throat: Mouth: Mucous membranes are moist. Pharynx: Posterior oropharyngeal erythema (mild) present. Eyes: Conjunctiva/sclera: Conjunctivae normal. Cardiovascular: Rate and Rhythm: Normal rate. Pulmonary: Effort: Pulmonary effort is normal. Skin: General: Skin is warm and dry. Capillary Refill: Capillary refill takes less than 2 seconds. Neurological: Mental Status: She is alert and oriented to person, place, and time. Medical Decision Making: Problems: Low: Acute, uncomplicated illness or injury Data: Unique source(s) for external note(s) reviewed: 1 Unique test result(s) reviewed: 1 Unique test(s) ordered: 1 Risk: Low: Low risk from testing/treatment Medical Decision Making Level: 3 - Low ASSESSMENT/PLAN: 1. Pharyngitis, unspecified etiology - ICD9: 462, ICD10: J02.9 - suspect viral - Rapid Strep negative in the office today - Discussed supportive care treatment with fluids, rest and analgesia. - The patient may also use OTC decongestants prn, OTC cough and cold meds as needed, and warm salt water gargles, throat lozenges and/or OTC throat spray as needed. - The patient should follow up in 3-5 days if symptoms persist or worsen - STREP A MOLECULAR (POC) Derrek Olivares APRN.FIRE LIE[employer]ENANT The above reflects my independent exam and review of the patient's medical record. I saw and examined the patient myself personally. Parts of the HPI, ROS, exam, impression/plan, and testing results may have been copied from the current or previous clinical notes and remain pertinent to today's visit. Current changes have been made and documented today. Voice recognition device used, may be minor grammar or spelling errors. documented in this encounter [facility] 01-30-2024 Telephone encount er Note Left message for patient that first available appointment is 02-15-24 and we can schedule for that day to let us know if she wants that appointment. Also told her if she did not want to wait that long to go to walk in clinic or stat care. [facility] 01-30-2024 Miscellaneous Notes Formattin g of this note might be different from the original. Left message for patient that first available appointment is 02-15-24 and we can schedule for that day to let us know if she wants that appointment. Also told her if she did not want to wait that long to go to walk in clinic or stat care. If I have an opening that is fine otherwise she may need walk in clinic or stat care. Patient calls today. Reason for Call: Patient states she has been having some rectal bleeding and wanted to see Bing. Advised no appointments until 02/14 and she asked if she could be seen sooner. Advised Walk In and she said she does not feel it is an emergency and if it gets worse she will go to the walk in. Is it OK to use another slot next week to schedule patient in with Bing? Please advise. Thanks! [phone] (home) [phone] (cell) Patient last appointment: 10/04/2023 Miguel Ho documented in this encounter [facility] 01-30-2024 Telephone encount er Note If I have an opening that is fine otherwise she may need walk in clinic or stat care. [facility] 01-30-2024 Telephone encount er Note Patient calls today. Reason for Call: Patient states she has been having some rectal bleeding and wanted to see Bing. Advised no appointments until 02/14 and she asked if she could be seen sooner. Advised Walk In and she said she does not feel it is an emergency and if it gets worse she will go to the walk in. Is it OK to use another slot next week to schedule patient in with Bing? Please advise. Thanks! [phone] (home) [phone] (cell) Patient last appointment: 10/04/2023 Miguel Ho T [facility] 01-04-2024 [facility] Prescription Refill Information The patient has been identified by name and date of : Yes Caregiver verified no other encounters exist for this prescription request: Yes Caregiver confirmed with patient/requestor that no other refills are due, in the near future, with this provider at this time: No The last office visit in the department: 10/04/2023 Does the patient have a future office visit with this provider/department: Yes Requested Prescriptions Pending Prescriptions Disp Refills buPROPion XL (WELLBUTRIN XL) 150 mg 24 hr tablet [Pharmacy Med Name: BUPROPION HCL XL 150 MG TABLET] 90 tablet 0 Sig: take 1 tablet by mouth every day Yuko Keith January 04, 2024 11:49 AM T [facility] 01-04-2024 Miscellaneous Notes Formattin g of this note is different from the original. Prescription Refill Information The patient has been identified by name and date of : Yes Caregiver verified no other encounters exist for this prescription request: Yes Caregiver confirmed with patient/requestor that no other refills are due, in the near future, with this provider at this time: No The last office visit in the department: 10/04/2023 Does the patient have a future office visit with this provider/department: Yes Requested Prescriptions Pending Prescriptions Disp Refills buPROPion XL (WELLBUTRIN XL) 150 mg 24 hr tablet [Pharmacy Med Name: BUPROPION HCL XL 150 MG TABLET] 90 tablet 0 Sig: take 1 tablet by mouth every day Yuko Keith January 04, 2024 11:49 AM documented in this encounter [facility] 10-10-2023 Discharge summary Note Date/Time October 10, 2023 11:43am [facility] Medical Records Department [address] [place] [address] Instructions for Home/Discharge Instructions 10/10/23 1142 MR#: [id number] Acct: [id number] Name: TUYETSALOMANUEL ROSE Rep #:[id number] : 1995 28 From: Ann Collier DO PCP: Care Physician,No Primary Status :[facility] [place] Discharge Instructions Diet Discharge Diet: No restrictions Activity Discharge Activity: Return to Normal Activity, May Not Drive (for two weeks or while taking narcotic pain medications.), May Shower and May Take a Tub Bath (in7 days) May resume sexual activity in: 1 week Weight Bearing Status: Full weight bearing Dressing / Incision Call your doctor if you observe: Using more than 1 pad per hour, Shortness of breath, Chest pain and Uncontrolled pain Suture Line Care: Avoid Pulling/Pushing and Avoid Pinching/Bending Remove Dressing in: 1 week (if present) Cleanse incision/area with: Soap & Water and Keep Dressing Clean & Dry Follow Up Care Please Follow Up With: Ann Collier DO When: Call to make an appointment with your doctor for a follow up incision check in 1-2 weeks. Test Results: Test results from this visit will be discussed in further detail at your follow-up appointment, if applicable. Discharge Plan Admission Primary Reason for Your Visit: diagnostic laparoscopy Attending Provider: Ann Collier Primary Care Provider: Care Physician,No Primary Discharge Orders/Prescriptions Prescriptions: New ibuprofen 800 mg tablet 800 mg PO Q8H PRN (Reason: pain) Qty: 30 0RF oxycodone-acetaminophen [Percocet] 5-325 mg tablet 1 tab PO Q4H PRN (Reason: pain) 3 Days Qty: 10 0RF Rx Instructions: 1-2 tabs q 4 hrs as needed for pain Continued bupropion HCl [Wellbutrin XL] 150 mg tablet extended release 24 hr 150 mg PO QAM multivitamin Tablet 1 tab PO DAILY Referrals / Follow Up: Care Physician,No Primary [Primary Care Provider] - Disposition Disposition (needs filled in before D/C Order can be placed): Home, Self Care 10/10/23 1145<Electronically signed by Ann Collier DO>Ann Collier DO CC: No Primary Care Physician ~ Signed [facility] Work Phone: 1(423) 755-688404-23-2024 Procedure [facility] 10-10-2023 History and physical note Author Ann Gordon [facility] October 10, 2023 10:22am Note Date/Time October 10, 2023 10: 22am [facility] Medical Records Department [address] [place] [address] History & Physical Exam 10/10/23 1022 MR#: [id number] Acct: [id number] Name: MANUEL MALDONADO Rep #:[id number] : 1995 28 From: Ann Collier DO PCP: Care Physician,No Primary Status :[facility] Location: [place] [address] History and Physical Date of Admission: 10/10/23 Intake Vital Signs 08/10/2407:44 09/03/2413:47 09/28/2409:13 09/28/2409:15 Height 5 ft 4 in 5 ft 4 in 5 ft 4 in 5 ft 4 in Weight: 138 lb BMI 23.6 BP 114/76 Intake Visit Reasons: diag. 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 Is patient in pain?: No Allergies No Known Allergies Allergy (Verified 09/29/23 10:13) Medications bupropion HCl 150 mg 24 hr tablet, extended release (Wellbutrin XL) 150 mg PO QAM 08/10/23 [History Confirmed 09/29/23] multivitamin 1 tab PO DAILY 09/29/23 [History Confirmed 09/29/23] Post menopausal: No Patient : No : No PFSH Medical History Anxiety Female infertility, unexplained History of echocardiogram (~2020) Non-smoker Seizures Wears contact lenses Surgical History (Updated 09/29/23 @ 10:18 by Bel Ramirez) History of exploratory laparotomy (~2016) History of wisdom tooth extraction (~2012) Social History household members: spouse and other current occupational status: unemployed history of recent travel: No sexually active: Yes Smoking Status: Never smoker alcohol intake: current alcohol intake frequency: a few times a month substance use type: does not use what type of physical activity do you participate in: weight training frequency: 3-4 times per week seatbelt use: always do you feel safe at home: Yes additional social history: - Vimal HPI diag. lap possible fulguration/lysis adhesions Details: MANUEL MALDONADO is a 28 year old who presents for pre-operative evaluation for scheduled diagnostic laparoscopy, fulguration of endometriosis and lysis of adhesions for pelvic pain and deep dyspareunia. Ultrasound was normal and she declined to start GNRH agonist. She has had a diagnostic laparoscopy in 2017 that was normal but read that endometriosis can be slow growing and she wants toknow if there is anything that could be different now compared to her surgery [id number]. History 0 Elective abortions Hx Para Spontaneous abortions Hx # Term Pregnancies Ectopic pregnancies Hx # Pregnancies Multiple births # of living children ROS Const ROS Unobtainable: All systems reviewed & are unremarkable except as noted in H Resp Resp: Reports system reviewed and no additional complaints, except as documented; Denies cough GI GI: Reports as per HPI Psych Psych: Reports system reviewed and no additional complaints, except as documented Exam Const General: cooperative, healthy appearing, comfortable and no acute distress Resp Effort & Inspection: normal respiratory effort Skin General: no rashes or lesions noted Psych Appearance: grossly normal Speech and Movement: speech and movement normal Coding Level of Care Code Off vis,est,level 4 Diagnoses Deep dyspareunia N94.12 Pelvic pain R10.2 Infertility management Z31.9 Assessment and Plan Assessment and Plan (1) Deep dyspareunia: Status: Acute (2) Pelvic pain: Status: Acute (3) Infertility management: Status: Acute Comment: letrozole X 3 cycles Plan After discussing the patient's diagnosis and treatment plan options, patient wishes to proceed with surgical management. I have discussed with the patient the risks, benefits, and alternatives of the procedure which include but are notlimited to risks of anesthesia, bleeding, infection, possible damage to bowel, bladder, or surrounding vasculature which could lead to additional surgery to evaluate any complications. Patient agrees to procedure and wishes to proceed. ACOG/uptodate references given for additional information regarding procedure. may also mention chromopertubation at time of surgery. 10/10/23 1022 <Electronically signed by Ann Collier DO> Cosigner Signature (if applicable): CC: Dr. Ann Collier DO; No Primary Care Physician~ Signed [facility] Work Phone: 1(864) 199-577004-17-2024 History and physical note* Bing Smith, VIPIN.FIRE LIEUTENANT - 10/04/2023 10:00 AM EDT VISIT TYPE: NEW PATIENT APPOINTMENT There are no exam notes on file for this visit. CHIEF COMPLAINT: Patient presents with: Establish Care: Patient is here to establish today No concerns HPI: Manuel Maldonado is a 28 year old female here for new patient appointment. Patients previous PCP was Yoly Flowers at [facility] as her worked there but no longer does so she needed see another provider. Last wellness 10/2021. Gets paps done at [facility], [place]. Does have adopted son. Anxiety/Depression- Taking wellbutrin which does keep symptoms controlled. Does have OCD type symptoms. Doesn't know of any specific triggers. Does get down during the winter and depression is more seasonal. Used to go to counseling. Does exercise which helps. Denies any feelings of helplessness/hopelessness, panic attacks, difficulty sleeping, thoughts of hurting self. Endometriosis- Following with [employer] ESTATE VALUER and is scheduled for expl lap next week. REVIEW OF SYSTEMS: Review of Systems Constitutional: Negative for appetite change, chills and fever. HENT: Negative for congestion, ear pain and sore throat. Eyes: Negative for redness and visual disturbance. Respiratory: Negative for cough, chest tightness, shortness of breath and wheezing. Cardiovascular: Negative for chest pain, palpitations and leg swelling. Gastrointestinal: Negative for abdominal pain, constipation, diarrhea, nausea and vomiting. Genitourinary: Positive for menstrual problem. Negative for dysuria, frequency and hematuria. Musculoskeletal: Negative for arthralgias and gait problem. Skin: Negative for color change, pallor and rash. Neurological: Negative for dizziness, syncope and headaches. Psychiatric/Behavioral: Negative for sleep disturbance and suicidal ideas. The patient is not nervous/anxious. Current Outpatient Medications Medication Sig Dispense Refill buPROPion XL (WELLBUTRIN XL) 150 mg 24 hr tablet take 1 tablet by mouth every day 90 tablet 0 iv contrast (will be provided with radiology test) CT ABD/PEL -Inject, intravenously, once for 1 dose.No IV access, insert saline lock prior to the beginning of sedation, infusion, injection of imaging exam. Discontinue saline lock post exam. If Pt. has a central line or IVAD, may access for administration according to line specific nursing protocol. Once exam is complete flush line and de-accessaccording to line specific nursing protocol in the CT contrast administration guidelines link. 1 Each 0 No current facility-administered medications for this visit. ALLERGIES No Known Allergies PAST MEDICAL HISTORY Diagnosis Date Anxiety COVID-19 10/10/2019 Depression NEGATIVE MEDICAL HISTORY PAST SURGICAL HISTORY Procedure [...] use: Yes Comment: rare Drug use: No Employer And Job Title: None on file Years Of Education Completed: Not specified Marital Status: Social History Social History Narrative Not on file PHYSICAL EXAM BP 109/72 (BP Site: Left Arm, BP Position: Sitting, BP Cuff Size: Regular Adult) Pulse 72 Resp 16 Ht 162.6 cm (5' 4) Wt 61.8 kg (136 lb 3.2 oz) LMP 06/18/2023 (Approximate) SpO2 100% BMI 23.38 kg/m Physical Exam Vitals reviewed. Constitutional: General: She is not in acute distress. Appearance: Normal appearance. She is normal weight. HENT: Head: Normocephalic and atraumatic. Right Ear: Tympanic membrane and ear canal normal. Left Ear: Tympanic membrane and ear canal normal. Nose: Nose normal. No congestion. Mouth/Throat: Mouth: Mucous membranes are moist. Pharynx: Oropharynx is clear. No oropharyngeal exudate or posterior oropharyngeal erythema. Eyes: Extraocular Movements: Extraocular movements intact. Conjunctiva/sclera: Conjunctivae normal. Pupils: Pupils are equal, round, and reactive to light. Neck: Vascular: No carotid bruit. Cardiovascular: Rate and Rhythm: Normal rate and regular rhythm. Pulses: Normal pulses. Heart sounds: Normal heart sounds. No murmur heard. Pulmonary: Effort: Pulmonary effort is normal. Breath sounds: Normal breath sounds. No rhonchi or rales. Abdominal: General: Bowel sounds are normal. There is no distension. Palpations: Abdomen is soft. Tenderness: There is no abdominal tenderness. Musculoskeletal: General: No swelling or tenderness. Normal range of motion. Cervical back: Normal range of motion and neck supple. Skin: General: Skin is warm and dry. Findings: No erythema or rash. Neurological: Mental Status: She is alert and oriented to person, place, and time. Cranial Nerves: No cranial nerve deficit. Psychiatric: Mood and Affect: Mood normal. Speech: Speech normal. Behavior: Behavior is cooperative. Thought Content: Thought content does not include suicidal ideation. Cognition and Memory: Cognition normal. Judgment: Judgment normal. DIAGNOSTICS REVIEWED IMPRESSION / PLAN ASSESSMENT/PLAN: 1. Encounter for annual general medical examination without abnormal findings in adult - ICD9: V70.0, ICD10: Z00.00 (primary diagnosis) Enc healthy diet and exercise. 2. Generalized anxiety disorder - ICD9: 300.02, ICD10: F41.1 Stable on wellbutrin. 3. Endometriosis - ICD9: 617.9, ICD10: N80.9 Following with plumber gasfitter and scheduled for procedure next week. Bing Smith APRN.FIRE LIEUTENANT F/u yearly and as needed documented in this encounterClerm[facility]2024 Miscellaneous Notes* Telephone Encounter - Rubina Davis MA - 09/25/2023 11:42 AM EDT Patient states she is still taking this. States that she has an appointment scheduled with another provider and not sure at the moment when that is. States when she gets home she will look at this and how many tablets she has left and if that will make it to her scheduled appointment. If not, patient states she will call the office back and schedule an appointment with Yoly Flowers for this. Rubina Davis MA * Telephone Encounter - Yoly Flowers APRN.CNP - 09/25/2023 11:22 AM EDT I got a refill request for Manuel for wellbutrin from pharmacy. I have not seen her since November of last year and I did start wellbutrin via [employer] messages in February, but have not seen her in office. I saw she was going to establish with Dr Watters but it was canceled so at this time, if she would like me to continue to manage the wellbutrin, I will need to see her in office since we have not had a follow up since it was started, that is if she is still taking it. She may not be taking it anymore, but we do need to check with her. Thanks Yoly Flowers APRN.FIRE LIEUTENANT * Telephone Encounter - Seda Díaz - 09/25/2023 9:30 AM EDT Pharmacy faxes requesting refill: Requested Prescriptions Pending Prescriptions Disp Refills buPROPion XL (WELLBUTRIN XL) 150 mg 24 hr tablet [Pharmacy Med Name: BUPROPION HCL XL 150 MG TABLET] 90 tablet 0 Sig: take 1 tablet by mouth every day Date of last visit:06/25/2023 Phone #: [phone] (home) [phone] (cell) The patients preferred pharmacy has been captured for this encounter? yes documented in this encounterClermont [facility] Hospital02-22-2024 NotePap Smear Specimen AdequacyFebruary 2023 11:19amComment.Satisfactory for evaluation. Endocervical and/or squamous metaplasticcells (endocervical component)are present.[facility] A#[id number] Hospital on above: Satisfactory for evaluation. Endocervical and/or squamous metaplasticcells (endocervical component)are present.08-10-2023 NotePap Smear Specimen Adequacy August 10, 2023 11:19amComment.Satisfactory for evaluation. Endocervical and/or squamous metaplasticcells (endocervical component)are present.[facility] A#[id number] [facility] Hospital on above:Satisfactory for evaluation. Endocervical and/or squamous metaplasticcells (endocervical component)are present.08-10-2023 NotePap Smear Specimen AdequacyFebruary 2023 12:19pmComment.Satisfactory for evaluation. Endocervical and/or squamous metaplasticcells (endocervical component)are present.[facility] INTER[facility]AC[facility] A#[id number] [facility] CenterCom[facility] on above:Satisfactory for evaluation. Endocervical and/or squamous metaplasticcells (endocervical component)are present.08-10-2023 NotePap Smear Specimen AdequacyFebruary 2023 12:19pmComment.Satisfactory for evaluation. Endocervical and/or squamous metaplasticcells (endocervical component)are present.[facility] A#[id number] Community Hospital on above:Satisfactory for evaluation. Endocervical and/or squamous metaplasticcells (endocervical component)are present.07-16-2023 Instructions* Patient Instructions* Derrek Olivares APRN.FIRE LIEUTENANT - 07/16/2023 1:50 PM EST Pt will follow up with PCP/ENT if not better in 2-3 days or go to emergency department if worseningcondition Call offices to see if either can see you sooner documented in this encounterClermont County Hospital01-28-2024 History of Present illness Narrative* Derrek Olivares APRN.ADELAIDE - 07/16/2023 1:44 PM EST July 16, 2023 HPI: Manuel Maldonado is [...] Known Allergies Immunization History Administered Date(s) Administered ID- original vaccine, age 12+ yr, monovalent ([employer] - PURPLE TOP) 09/04/2020 09/27/2020 tetanus diphtheria [...] Once exam is complete flush line and de-accessaccording to line specific nursing protocol in the [...] had antibiotics and then was prescribed steroids thesecond visit. Patient also saw ENT, who told her to give it a little while to improve. It has been about a month patient still has pain in the inferior auricular area. She has a small tender lymph node to the inferior auricular area that may need evaluation that is not available at this clinic. Sheis going to call ENT tomorrow and see if she can get in any sooner than end of July, or her PCPand see if she can get in for an evaluation before her initial new patient evaluation in August. Sheis advised to go to the emergency department for any worsening condition, difficulty swallowing, fevers, or other concerns. Derrek Olivares APRN.ADELAIDE The above reflects my independent exam and [...] Plan as outlined above. documented in this encounterClermont County Hospital01-08-2024 Miscellaneous Notes* Telephone Encounter - Sylvie Ahn MA - 06/26/2023 7:12 AM EST Pharmacy faxes requesting refill: Requested Prescriptions Pending Prescriptions Disp Refills buPROPion XL (WELLBUTRIN XL) 150 mg 24 hr tablet [Pharmacy Med Name: BUPROPION HCL XL 150 MG TABLET] 90 tablet Sig: take 1 tablet by mouth every day Date of last visit:12/05/22 Phone #: [phone] (home) [phone] (cell) The patients preferred pharmacy has been captured for this encounter? Yes Sylvie Ahn MA documented in this encounterClermont County Hospital11-03-2023 Miscellaneous Notes* Telephone Encounter - Hortencia Dudley MA - 04/21/2023 7:24 AM EDT Pharmacy faxes requesting refill: Requested Prescriptions Pending Prescriptions Disp Refills escitalopram oxalate (LEXAPRO) 10 mg tablet [Pharmacy Med Name: ESCITALOPRAM 10 MG TABLET] 90 tablet Sig: take 1 tablet by mouth every day Date of last visit:12/05/22 Phone #: [phone] (home) [phone] (work) [phone] (cell) The patients preferred pharmacy has been captured for this encounter? yes documented in this encounterClermont County Hospital10-03-2023 Miscellaneous Notes* Telephone Encounter - Salima Buckner MA - 03/21/2023 11:39 AM EDT Pharmacy faxes requesting refill: Requested Prescriptions Pending Prescriptions Disp Refills buPROPion XL (WELLBUTRIN XL) 150 mg 24 hr tablet [Pharmacy Med Name: BUPROPION HCL XL 150 MG TABLET] 30 tablet 2 Sig: take 1 tablet by mouth every day Date of last visit:12/05/2022 Phone #: [phone] (home) [phone] (work) [phone] (cell) The patients preferred pharmacy has been captured for this encounter? yes documented in this encounterClermont County Hospital09-07-2023 Miscellaneous Notes* Addendum Note - Yoly Flowers APRN.CNP - 02/23/2023 12:27 PM EDTAddended by: YOLY FLOWERS on: 02/23/2023 12:27 PM Modules accepted: Orders documented in this encounterClermont County Hospital07-19-2023 Miscellaneous Notes* Telephone Encounter - Rubina Davis MA - 01/04/2023 4:35 PM EDT I left message for patient to return call. Office phone number was provided. Rubina Davis MA * Telephone Encounter - Yoly Flowers APRN.CNP - 01/04/2023 4:24 PM EDT Can you update Manuel that her CT of her abdomen and pelvis is normal. Thanks Yoly Flowers APRN.CNP documented in this encounterClermont County Hospital06-19-2023 Miscellaneous Notes* Telephone Encounter - Ryan Grant - 12/05/2022 1:32 PM EDT Auth request started with Day with pending case # [id number] Ryan Grant * Telephone Encounter - Yoly Flowers APRN.CNP - 12/05/2022 11:21 AM EDT Note signed * Telephone Encounter - Ryan Grant - 12/05/2022 11:08 AM EDT Yoly, I tried starting the request and they are requesting the office note. Please advise when this is completed and I will send the request Ryan Grant * Telephone Encounter - Rubina Davis MA - 12/05/2022 10:36 AM EDT Yoly ordered a CT Abdomen W IVCON oral and IV contrast. Diagnoses of Right lower quadrant abdominal pain [R10.31] Needing prior auth with [employer] insurance. Rubina Davis MA documented in this encounterClermont County Hospital06-19-2023 NoteHNO ID: [id number] Author: Yoly Flowers APRN.CNP Service: ? Author Type: Nurse Practitioner [...] (98.1 ?F) (Oral) Ht 162.6 cm (5' 4.02) Wt 65.4 kg (144 lb 3.2 oz) [...] F41.9, F32.A Restart lexapro at 5mg daily. Yoly Flowers APRN.CNPDoctors Hospital06-19-2023 Instructions* Patient Instructions* Yoly Flowers APRN.CNP - 12/05/2022 10:50 AM EDT If you develop any severe abdominal pain please go to ER for evaluation. documented in this encounterClermont County Hospital06-19-2023 History of Present illness Narrative* Yoly Flowers APRN.CNP - 12/05/2022 10:12 AM EDT Manuel Maldonado is a 27 year old [...] She reports the pain has been more constantthis pas week and any activity she does [...] (98.1 F) (Oral) Ht 162.6 cm (5' 4.02) Wt 65.4 kg (144 lb 3.2 oz) [...] F41.9, F32.A Restart lexapro at 5mg daily. Yoly Flowers APRN.ADELAIDE documented in this encounterClermont County Hospital10-28-2022 Miscellaneous Notes* Telephone Encounter - Rubina Davis MA - 04/15/2022 10:50 AM EDT Called patient to collect payment of $30 from DOS 04/13. I left message for patient to return call. Office phone number was provided. Rubina Davis MA documented in this encounterClermont County Hospital10-26-2022 NoteHNO ID: [id number] Author: Yoly Flowers APRN.ADELAIDE Service: ? Author Type: Nurse Practitioner Type: [...] (97.6 ?F) (Oral) Ht 162.6 cm (5' 4.02) Wt 65.5 kg (144 lb 6.4 oz) [...] irritation from yeast - UA DIP B/O Yoly Flowers APRN.ADELAIDEDoctors Hospital10-26-2022 Instructions* Patient Instructions* Yoly Flowers APRN.ADELAIDE - 04/13/2022 4:24 PM EDT Let me know if doesn't improve or resolve. documented in this encounterClermont County Hospital10-26-2022 History of Present illness Narrative* Yoly Flowers APRN.ADELAIDE - 04/13/2022 3:56 PM EDT Manuel Maldonado is a 27 year old [...] (97.6 F) (Oral) Ht 162.6 cm (5' 4.02) Wt 65.5 kg (144 lb 6.4 oz) LMP 03/27/2022 (Exact Date) SpO2 99% BMI 24.77kg/m BMI 24.77 kg/(m^2) Physical Exam Constitutional: Appearance: [...] irritation from yeast - UA DIP B/O Yoly Flowers APRN.FIRE LIEUTENANT documented in this encounterClermont County Hospital08-01-2022 NoteHNO ID: [id number] Author: Yoly Flowers APRN.FIRE LIEUTENANT Service: ? Author Type: Nurse Practitioner Type: [...] (98.2 ?F) (Oral) Ht 162.6 cm (5' 4.02) Wt 63.1 kg (139 lb 3.2 oz) [...] fails to improve with interventions follow up Yloy Flowers APRN.[facility]ELAIDEDoctors Hospital08-01-2022 Instructions* Patient Instructions* Yoly Flowers APRN.ADELAIDE - 01/17/2022 11:22 AM EDT Suggest rolling foot on ice bottle to help reduce inflammation. Also suggest nsaid such as ibuprofen or aleve. If doesn't improve let me know. documented in this encounterClermont County Hospital08-01-2022 History of Present illness Narrative* Yoly Flowers APRN.ADELAIDE - 01/17/2022 11:05 AM EDT Manuel Maldonado is a 26 year old female here today acutely because of having: Patient presents with: Ankle Pain: States right ankle pain. States she runs. States pain has been present for a couple weeks. she reports no injury. She has pain in her heel if she moves her right big toe. She denies constantheel pain but more intermittent. She feels some [...] (98.2 F) (Oral) Ht 162.6 cm (5' 4.02) Wt 63.1 kg (139 lb 3.2 oz) LMP 01/06/2022 (Exact Date) SpO2 98% BMI 23.88 kg/m BMI 23.88 kg/(m^2) Physical Exam Constitutional: Appearance: Normal appearance. She is normal weight. Pulmonary: Effort: Pulmonary effort is normal. Musculoskeletal: General: No swelling, tenderness or deformity. Normal range of motion. Comments: Right great toe normal, no joint swelling or redness. No joint tenderness. Deep palpationperformed on ball of foot, arch and heel, no pain or tenderness found. Normal flexion and extensionof foot and toes. No metatarsal tenderness. Skin: [...] and after runs. May need shoes with thickersoles for more cushion on roads. Run on mid to forefoot, avoid heel striking, this may take time for your calf and achilles to strengthen, again strengthening exercises discussed. If worsens or failsto improve with interventions follow up Yoly Flowers APRN.ADELAIDE documented in this encounterClermont County Hospital05-23-2022 Miscellaneous Notes* Telephone Encounter - Yoly Flowers APRN.CNP - 11/08/2021 12:15 PM EDT Send 90 day supply with refills. * Telephone Encounter - Starr Lundberg MA - 11/08/2021 12:01 PM EDT Pharmacy faxes requesting refill: Pending Prescriptions Disp Refills ESCITALOPRAM 10 MG TABLET 30 tablet 1 Sig: TAKE 1 TABLET BY MOUTH EVERY DAY RONEY: Yes Date of last visit: 06/15/2021 Phone #: [phone] (home) [phone] (work) [phone] (cell) The patients preferred pharmacy has been captured for this encounter? yes documented [facility] Instructions* Patient Instructions* Yoly Flowers APRN.CNP - 11/08/2021 9:47 AM EDT [...] 10grams or less daily. documented in this encounterClerm[facility]05-[facility]22 History of Present illness Narrative* Yoly Flowers APRN.CNP - 11/08/2021 9:12 AM EDT Manuel Maldonado is a 26 year old female here today for a check up on her medical problems. Concern(s) today include: Patient presents with: Wellness she is doing well. She is eating a healthy diet. She does exercise as well. She is doing well and has no concerns. Labs done and reviewed. She follows with multimedia developer for her pap. She does take lexapro [...] (98.5 F) (Oral) Ht 162.6 cm (5' 4.02) Wt 62.6 kg (138 lb) LMP 10/21/2021 [...] allergies - ICD9: 477.9, ICD10: J30.2 stable Yoly Flowers APRN.CNP Portions of this note have been entered by ancillary staff. I have reviewed and when necessary edited, so that they are an adequate record of my encounter with this patient. documented in this encounterClerm[facility]05-23-[facility]22 Nurse Note* Yuko Spain MA - 11/08/2021 9:05 AM EDT Labs drawn by ABEL Cooper. * Yuko Spain MA - 11/08/2021 9:04 AM EDT Venipuncture performed to left antecubital. Number of tubes collected: 1 gold and 1 lavender. documented in this encounterClerm[facility]05-16-2022 Miscellaneous Notes* Telephone Encounter - Rubina Davis MA - 11/01/2021 9:40 AM EDT Manuel called before opening and left a vm to cancel lab appointment for today. I called and left VM to call the office so we can reschedule the appointment. Rubina Davis MA documented in this encounterClerm[facility]05-13-2022 Miscellaneous Notes* Addendum Note - Yoly Flowers APRN.CNP - 10/29/2021 8:45 AM EDT Addended by: YOLY FLOWERS on: 10/29/2021 08:45 AM Modules accepted: Orders * Telephone Encounter - Yoly Flowers APRN.CNP - 10/29/2021 8:45 AM EDT Wellness labs ordered Yoly Flowers APRN.CNP * Telephone Encounter - Rubina Davis MA - 10/29/2021 8:31 AM EDT Called patient to schedule wellness visit as she sent a request. Also, schedule wellness lab appointment. Rubina Davis MA documented in this encounterClerm[facility]04-22-2022 Miscellaneous Notes* Telephone Encounter - Rubina Davis MA - 10/08/2021 12:47 PM EDT Called patient and scheduled appointment for medication. Rubina Davis MA documented in this encounterClerm[facility]04-22-2022 Miscellaneous Notes* Telephone Encounter - Melba Elena APRN.CNP - 10/08/2021 9:52 AM EDT Refill provided but patient is in need of a routine care office visit. Melba Elena APRN.CNP * Telephone Encounter - Rubina Davis MA - 10/08/2021 7:32 AM EDT Pharmacy requesting refill: No appointment scheduled. Pending Prescriptions Disp Refills ESCITALOPRAM 10 MG TABLET 90 tablet 1 Sig: TAKE 1 TABLET BY MOUTH EVERY DAY RONEY: Yes Date of last visit:07/16/2020 Phone #: [phone] (home) [phone] (work) [phone] (cell) The patients preferred pharmacy has been captured for this encounter? Yes Rubina Davis MA documented in this encounterCl[facility] Future Appointments Appointment Date:02/24/2025 08:00:00 AM Scheduled Provider:RATNA MAIER MD Location:[facility] Appointment Type:PC Wellness Annual [facility] evaluation note* Diagnosis Well adult exam- Primary Routine general medical examination at a health care facility documented in this encounter [facility] note* Diagnosis APPOINTMENT CANCELLED- Primary [facility]* Diagnosis Well adult exam- Primary Routine general medical examination at a health care facility Anxiety and depression Dysthymic disorder Seasonal allergies Allergic rhinitis, cause unspecified documented in this encounter [facility] note* Diagnosis Foot pain, right- Primary Pain in limb documented in this encounter [facility] note* Diagnosis Vaginal yeast infection- Primary Candidiasis of vulva and vagina Dysuria documented in this encounter [facility] note* Diagnosis Right lower quadrant abdominal pain- Primary Abdominal pain, right lower quadrant Bloating Flatulence, eructation, and gas pain Anxiety and depression Dysthymic disorder [facility] this [facility]* Diagnosis Eustachian tube dysfunction, right- Primary documented in this encounter [facility] note* Diagnosis Onset Date Resolution Status Deep dyspareunia acute Left breast lump acute Encounter for routine gynecological examination noneactive [facility] Work Phone: Evaluation note* Diagnosis Onset Date Resolution Status Deep dyspareunia acute Left breast lump acute Encounter for routine gynecological examination noneactive Deep dyspareunia acute Infertility management acute Pelvic pain acute [facility] Work Phone: Evaluation note* Diagnosis Encounter for annual general medical examination without abnormal findings in adult- Primary Generalized anxiety disorder Endometriosis Endometriosis, site unspecified documented in this encounter [facility]* Diagnosis Onset Date Resolution Status Deep dyspareunia acute Left breast lump acute Encounter for routine gynecological examination noneactive Deep dyspareunia acute Infertility management acute Pelvic pain acute Deep dyspareunia acute Dysmenorrhea acute Infertility management acute Pelvic pain acute [facility] Work Phone: Evaluation note* Diagnosis Pharyngitis, unspecified etiology- Primary documented in this encounter [facility] note* Diagnosis Acute bacterial conjunctivitis of left eye- Primary documented in this encounter [facility] note* Diagnosis Bacterial sinusitis- Primary Unspecified sinusitis (chronic) [facility] Narrative No data available for this section [facility] Discharge instructions No data available for this section [facility] Progress note No data available for this section [facility] Summary Purpose Family History No Family History Records FoundNo Family History Records FoundNo Family History Records FoundNo Family History Records FoundNo Family History Records FoundNo Family History Records FoundNo Family History Records FoundNo Family History Records Found No data available for this section No Family History Records Found No data available for this section No Family History Records FoundNo Family History Records Found Advance Directives No Advanced Directives Records Found Advance Directive Response Recorded Date/ Time Living Will No September 13, 2023 1:38pm Power of Admitting Office Escort No September 12 1:38pm Health Concerns Infection Onset Date Last Indicated Resolved Time COVID-19 Rule-Out 07/17/2020 07/17/2020 07/20/2020 7:10 AM EST Reason for Referral Specialty Diagnoses / Procedures Referred By Yury t Referred To Contact CT IMAGING Diagnoses Right lower quadrant abdominal pain Procedures CT ABDOMEN W IVCON CT ABDOMEN W/CONTRAST Yoly Flowers, ASSOCIATE ARTISTIC DIRECTOR.[employer] [address] [place], [place] [address] Ct Imaging Referral ID Status Reason Start Date Expiration Date Visits Requested Visits Authorized [id number] Pending Review Auto-Generat ed Referral 12/05/2022 01/04/2024 1 1 Chief Complaint and Reason for Visit Chief Complaint 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 lap possible fulguration/lysis adhesions Diagnostic Laparoscopy,possible ful Diagnostic Laparoscopy,possible ful Reason for Visit Deep dyspareunia Left breast lump Encounter for routine gynecological examination Deep dyspareunia Infertility management Pelvic pain Deep dyspareunia Dysmenorrhea Infertility management Pelvic pain Additional Source Comments INFORMATION SOURCE (unrecogn ized section and content) DATE CREATED AUTHOR 12/13/2017 [facility] DATE CREATED AUTHOR AUTHOR'S ORGANIZ ATION 01/14/2020 [facility] DATE CREATED AUTHOR AUTHOR'S ORGANIZ ATION 05/12/2020 [facility] ([place]) DATE CREATED AUTHOR AUTHOR'S ORGANIZ ATION 01/07/2021 [facility] DATE CREATED AUTHOR AUTHOR'S ORGANIZ ATION 11/11/2021 [facility] DATE CREATED AUTHOR AUTHOR'S ORGANIZ ATION 01/05/2023 [facility] DATE CREATED AUTHOR AUTHOR'S ORGANIZ ATION 01/06/2023 [facility] DATE CREATED AUTHOR AUTHOR'S ORGANIZ ATION 03/13/2024 [facility] DATE CREATED AUTHOR AUTHOR'S ORGANIZ ATION 08/07/2024 [facility] DATE CREATED AUTHOR AUTHOR'S ORGANIZ ATION 09/12/2024 [facility] DATE CREATED AUTHOR AUTHOR'S ORGANIZ ATION 11/20/2024 [facility] Source Comments (unrecognize d section and content) In the event this informatio n is protected by the Federal Confidentiality of Alcohol and Drug Abuse Patient Records regulations: The Federal rules restrict any use of the information to criminally investigate or prosecute any alcohol or drug abuse patient.[facility] HospitalIn the event this information is protected by the Federal Confidentiality of Alcohol and Drug Abuse Patient Records regulations: The Federal rules restrict any use of the information to criminally investigate or prosecute any alcohol or drug abuse patient.[facility] HospitalIn the event this information is protected by the Federal Confidentiality of Alcohol and Drug Abuse Patient Records regulations: The Federal rules restrict any use of the information to criminally investigate or prosecute any alcohol or drug abuse patient.[facility] HospitalIn the event this information is protected by the Federal Confidentiality of Alcohol and Drug Abuse Patient Records regulations: The Federal rules restrict any use of the information to criminally investigate or prosecute any alcohol or drug abuse patient.[facility] HospitalIn the event this information is protected by the Federal Confidentiality of Alcohol and Drug Abuse Patient Records regulations: The Federal rules restrict any use of the information to criminally investigate or prosecute any alcohol or drug abuse patient.[facility] HospitalIn the event this information is protected by the Federal Confidentiality of Alcohol and Drug Abuse Patient Records regulations: The Federal rules restrict any use of the information to criminally investigate or prosecute any alcohol or drug abuse patient.[facility] HospitalIn the event this information is protected by the Federal Confidentiality of Alcohol and Drug Abuse Patient Records regulations: The Federal rules restrict any use of the information to criminally investigate or prosecute any alcohol or drug abuse patient.[facility] HospitalIn the event this information is protected by the Federal Confidentiality of Alcohol and Drug Abuse Patient Records regulations: The Federal rules restrict any use of the information to criminally investigate or prosecute any alcohol or drug abuse patient.[facility] HospitalIn the event this information is protected by the Federal Confidentiality of Alcohol and Drug Abuse Patient Records regulations: The Federal rules restrict any use of the information to criminally investigate or prosecute any alcohol or drug abuse patient.[facility] HospitalIn the event this information is protected by the Federal Confidentiality of Alcohol and Drug Abuse Patient Records regulations: The Federal rules restrict any use of the information to criminally investigate or prosecute any alcohol or drug abuse patient.[facility] HospitalIn the event this information is protected by the Federal Confidentiality of Alcohol and Drug Abuse Patient Records regulations: The Federal rules restrict any use of the information to criminally investigate or prosecute any alcohol or drug abuse patient.[facility] HospitalIn the event this information is protected by the Federal Confidentiality of Alcohol and Drug Abuse Patient Records regulations: The Federal rules restrict any use of the information to criminally investigate or prosecute any alcohol or drug abuse patient.[facility] HospitalIn the event this information is protected by the Federal Confidentiality of Alcohol and Drug Abuse Patient Records regulations: The Federal rules restrict any use of the information to criminally investigate or prosecute any alcohol or drug abuse patient.[facility] HospitalIn the event this information is protected by the Federal Confidentiality of Alcohol and Drug Abuse Patient Records regulations: The Federal rules restrict any use of the information to criminally investigate or prosecute any alcohol or drug abuse patient.[facility] HospitalIn the event this information is protected by the Federal Confidentiality of Alcohol and Drug Abuse Patient Records regulations: The Federal rules restrict any use of the information to criminally investigate or prosecute any alcohol or drug abuse patient.[facility] HospitalIn the event this information is protected by the Federal Confidentiality of Alcohol and Drug Abuse Patient Records regulations: The Federal rules restrict any use of the information to criminally investigate or prosecute any alcohol or drug abuse patient.[facility] HospitalIn the event this information is protected by the Federal Confidentiality of Alcohol and Drug Abuse Patient Records regulations: The Federal rules restrict any use of the information to criminally investigate or prosecute any alcohol or drug abuse patient.[facility] HospitalIn the event this information is protected by the Federal Confidentiality of Alcohol and Drug Abuse Patient Records regulations: The Federal rules restrict any use of the information to criminally investigate or prosecute any alcohol or drug abuse patient.[facility] HospitalIn the event this information is protected by the Federal Confidentiality of Alcohol and Drug Abuse Patient Records regulations: The Federal rules restrict any use of the information to criminally investigate or prosecute any alcohol or drug abuse patient.[facility] HospitalIn the event this information is protected by the Federal Confidentiality of Alcohol and Drug Abuse Patient Records regulations: The Federal rules restrict any use of the information to criminally investigate or prosecute any alcohol or drug abuse patient.[facility] HospitalIn the event this information is protected by the Federal Confidentiality of Alcohol and Drug Abuse Patient Records regulations: The Federal rules restrict any use of the information to criminally investigate or prosecute any alcohol or drug abuse patient.[facility] HospitalIn the event this information is protected by the Federal Confidentiality of Alcohol and Drug Abuse Patient Records regulations: The Federal rules restrict any use of the information to criminally investigate or prosecute any alcohol or drug abuse patient.[facility] HospitalIn the event this information is protected by the Federal Confidentiality of Alcohol and Drug Abuse Patient Records regulations: The Federal rules restrict any use of the information to criminally investigate or prosecute any alcohol or drug abuse patient.[facility] HospitalIn the event this information is protected by the Federal Confidentiality of Alcohol and Drug Abuse Patient Records regulations: The Federal rules restrict any use of the information to criminally investigate or prosecute any alcohol or drug abuse patient.[facility] HospitalIn the event this information is protected by the Federal Confidentiality of Alcohol and Drug Abuse Patient Records regulations: The Federal rules restrict any use of the information to criminally investigate or prosecute any alcohol or drug abuse patient.[facility] HospitalIn the event this information is protected by the Federal Confidentiality of Alcohol and Drug Abuse Patient Records regulations: The Federal rules restrict any use of the information to criminally investigate or prosecute any alcohol or drug abuse patient.[facility] HospitalIn the event this information is protected by the Federal Confidentiality of Alcohol and Drug Abuse Patient Records regulations: The Federal rules restrict any use of the information to criminally investigate or prosecute any alcohol or drug abuse patient.[facility] HospitalIn the event this information is protected by the Federal Confidentiality of Alcohol and Drug Abuse Patient Records regulations: The Federal rules restrict any use of the information to criminally investigate or prosecute any alcohol or drug abuse patient.[facility] HospitalIn the event this information is protected by the Federal Confidentiality of Alcohol and Drug Abuse Patient Records regulations: The Federal rules restrict any use of the information to criminally investigate or prosecute any alcohol or drug abuse patient.[facility] HospitalIn the event this information is protected by the Federal Confidentiality of Alcohol and Drug Abuse Patient Records regulations: The Federal rules restrict any use of the information to criminally investigate or prosecute any alcohol or drug abuse patient.[facility] HospitalIn the event this information is protected by the Federal Confidentiality of Alcohol and Drug Abuse Patient Records regulations: The Federal rules restrict any use of the information to criminally investigate or prosecute any alcohol or drug abuse patient.[facility] Reason for Visit (unrecogniz ed section and content) Reason Comments Refill Request Reason Comments Appointment Reason Comments Appointment Orders [...] in with ent until end of July. Reason Comments Establish Care Patient is here to e stablish todayNo concerns Reason Comments Patient Question Reason Comments Ear Problem Right ear pain, 4 da ys Reason Comments Eye Problem Left eye redness, to day Reason Comments Cough Started 8 days ago. OTC:Mucinex Sinusitis Drainage/congestion Chest Congestion Care Teams (unrecognized sec tion and content) Account Developer Relationship Specialty Start Date End Date Yoly Flowers, ASSOCIATE ARTISTIC DIRECTOR.[address] [place], [place] [id number] PCP - General Nurse Practitioner 11/26/19 Account Developer Relationship Specialty Start Date End Date Yoly Flowers, ASSOCIATE ARTISTIC DIRECTOR.[address] [place], [place] [id number] PCP - General Nurse Practitioner 11/26/19 Account Developer Relationship Specialty Start Date End Date Yoly Flowers, ASSOCIATE ARTISTIC DIRECTOR.[address] [place], [place] [id number] PCP - General Nurse Practitioner 11/26/19 Account Developer Relationship Specialty Start Date End Date Yoly Flowers, ASSOCIATE ARTISTIC DIRECTOR.[address] [place], [place] [id number] PCP - General Nurse Practitioner 11/26/19 Account Developer Relationship Specialty Start Date End Date Yoly Flowers, ASSOCIATE ARTISTIC DIRECTOR.[address] [place] [address] PCP - General Nurse Practitioner 11/26/19 Account Developer Relationship Specialty Start Date End Date Yoly Flowers, ASSOCIATE ARTISTIC DIRECTOR.[facility] [address] [place] [address] PCP - General Nurse Practitioner 11/26/19 Account Developer Relationship Specialty Start Date End Date Yoly Flowers, ASSOCIATE ARTISTIC DIRECTOR.[facility] [address] [place] [address] PCP - General Nurse Practitioner 11/26/19 Account Developer Relationship Specialty Start Date End Date Yoly Flowers, ASSOCIATE ARTISTIC DIRECTOR.[facility] [address] [place] [address] PCP - General Nurse Practitioner 11/26/19 Account Developer Relationship Specialty Start Date End Date Yoly Flowers, ASSOCIATE ARTISTIC DIRECTOR.[address] [place] [address] PCP - General Nurse Practitioner 11/26/19 Account Developer Relationship Specialty Start Date End Date Yoly Flowers, ASSOCIATE ARTISTIC DIRECTOR.[address] [place] [address] PCP - General Nurse Practitioner 11/26/19 Account Developer Relationship Specialty Start Date End Date Yoly Flowers, ASSOCIATE ARTISTIC DIRECTOR.[facility] [address] [place] [address] PCP - General Nurse Practitioner 11/26/19 Account Developer Relationship Specialty Start Date End Date oYly Flowers, ASSOCIATE ARTISTIC DIRECTOR.[address] [place] [address] PCP - General Nurse Practitioner 11/26/19 Account Developer Relationship Specialty Start Date End Date Yoly Flowers, ASSOCIATE ARTISTIC DIRECTOR.[employer] [facility] [address] [place] [address] PCP - General Nurse Practitioner 11/26/19 Account Developer Relationship Specialty Start Date End Date Yoly Flowers, ASSOCIATE ARTISTIC DIRECTOR.[employer] [address] [place], [place] [id number] PCP - General Nurse Practitioner 11/26/19 Account Developer Relationship Specialty Start Date End Date Yoly Flowers, ASSOCIATE ARTISTIC DIRECTOR.[employer] [address] [place] [address] PCP - General Nurse Practitioner 11/26/19 Account Developer Relationship Specialty Start Date End Date Yoly Flowers, ASSOCIATE ARTISTIC DIRECTOR.[employer] [address] [place] [address] PCP - General Nurse Practitioner 11/26/19 Account Developer Relationship Specialty Start Date End Date Yoly Flowers, ASSOCIATE ARTISTIC DIRECTOR.[employer] [address] [place] [address] PCP - General Nurse Practitioner 11/26/19 Account Developer Relationship Specialty Start Date End Date Yoly Flowers, ASSOCIATE ARTISTIC DIRECTOR.[employer] [address] [place] [address] PCP - General Nurse Practitioner 11/26/19 Team Status: Active Member Role Status Dates No Primary Care Physician Primary Care Provider Active Team Status: Inactive Member Role Status Dates No Primary Care Physician Primary Care Provider, Refer ring Provider Active Dr. Ann Collier DO Attending Provider Activ e Team Status: Inactive Member Role Status Dates No Primary Care Physician Primary Care Provider Active Dr. Ann Collier DO Attending Provider, Refe rring Provider Active Account Developer Relationship Specialty Start Date End Date Bing Smith, ASSOCIATE ARTISTIC DIRECTOR.[employer] [address] [place] [address] [place] [address] PCP - General Family Medicine 10/04/23 Team Status: Active Member Role Status Dates No Primary Care Physician Primary Care Provider Active Dr. Ann Collier , Attending Provider, Referring Provider, Other Provider Active Account Developer Relationship Specialty Start Date End Date Bing Smith, ASSOCIATE ARTISTIC DIRECTOR.[employer] [address] [address] PCP - General [facility] Medicine 10/04/23 Account Developer Relationship Specialty Start Date End Date Bing Smith, ASSOCIATE ARTISTIC DIRECTOR.[employer] [address] [address] PCP - [facility] Medicine 10/04/23 Account Developer Relationship Specialty Start Date End Date Bing Smith, ASSOCIATE ARTISTIC DIRECTOR.[employer] [address] [address] PCP - [facility] Medicine 10/04/23 Account Developer Relationship Specialty Start Date End Date Bing Smith, ASSOCIATE ARTISTIC DIRECTOR.[employer] [address] [address] PCP - [facility] Medicine 10/04/23 Account Developer Relationship Specialty Start Date End Date Bing Smith, ASSOCIATE ARTISTIC DIRECTOR.[employer] [address] [address] PCP - [facility] Medicine 10/04/23 Goals (unrecognized section and content) Goals may be documented in a n alternate sectionGoals may be documented in an alternate sectionGoals may be documented in an alternate section No data available for this section No data available for this section FOR RECORDS PERTAINING TO PATIENTS WHO ARE [...] BE BASED ON THE PRIMARY CLINICAL RECORDS. [facility]. provides no warranty or guarantee of the accuracy or completeness of information in this document.
== END | disposition home or self-care (01) ==
LOC: OPBI 08:48
PROVIDERS: Referring Provider Nurse Practitioner Women's Health; Visit Provider Nurse Practitioner Women's Health
DX: N64.4 Mastodynia (principal)
CPT/HCPCS: 77062; 76642; 77066; G0279

== ENCOUNTER → 2025-04-11 | Outpatient (CLI) | payer BC, SELFPAY ==
[2025-04-11 12:33] LABS: Hematocrit 41.1 % (37-47); Hemoglobin 14.4 g/dL (12.0-15.0); Immature Granulocytes Count 0.020 X10^3/uL (0.0-0.0); Mean Corp Hgb Conc 35.0 g/dL (32-36); Mean Corpuscular Volume 86.0 fL (81-99); Mean Platelet Vol. 9.4 fl (6.2-12.0); NRBC Flagged by Analyzer 0 % (0-5); Platelet Count 268 K/mm3 (150-450); RBC Distribution Width CV 12.3 % (11.6-14.6); RBC Distribution Width SD 38.4 fl (35.1-43.9); Red Blood Count 4.78 M/mm3 (4.2-5.4); White Blood Count 8.7 K/mm3 (4.4-11.0)
[2025-04-11 13:15] LABS: HIV Nonreactive (Nonreactive); Hepatitis B Surface Antigen Nonreactive (Nonreactive); Hepatitis C Antibody Nonreactive (Nonreactive); Syphilis Antibodies Nonreactive (Nonreactive)
[2025-04-14 20:08] LABS: Chlamydia By Nucleic Acid AMP Negative (Negative); Gonococcus By Nucleic Acid AMP Negative (Negative)
== END | disposition home or self-care (01) ==
PROVIDERS: Visit Provider Advanced Practice Midwife
DX: O09.90 Supervision of high risk pregnancy, unspecified, unspecified trimester (principal); Z3A.00 Weeks of gestation of pregnancy not specified
CPT/HCPCS: 36415; 85025; 86703; 86762; 86780; 86803; 86850; 86900; 86901; 87086; 87088; 87340; 87491; 87591